=== PATIENT | male | born 1940 | race Caucasian/White ===

== ENCOUNTER → 2024-09-01 | Outpatient (BNVA) | payer MEDICARE, SELFPAY | END | disposition home or self-care (01) | PROVIDERS: PCP Family Medicine; Referring Provider Family Medicine; Visit Provider Urology | DX: N40.1 Benign prostatic hyperplasia with lower urinary tract symptoms (principal); N13.8 Other obstructive and reflux uropathy; N18.30 Chronic kidney disease, stage 3 unspecified | CPT/HCPCS: 99212; G0463 ==

== ENCOUNTER → 2024-11-07 | Outpatient (CLI) | payer MEDICARE, SELFPAY ==
[2024-11-07 13:44] LABS: Collection Type, Urine Clean Catch; Squamous Epithelial Cell,Urine 0 /hpf (0-5)
[2024-11-07 16:55] LABS: Bacteria,Urine 2+; Bilirubin,Urine Negative (Negative); Blood,Urine 1+ (Negative); Color,Urine Yellow (Lt Yel-Yel); Glucose, Urine Negative (Negative); Ketones,Urine Negative (Negative); Leukocyte Esterase,Urine Positive (Negative); Nitrite,Urine Negative (Negative); Protein,Urine 1+ (Neg - Trace); RBC,Urine 9 /hpf (0-3); Specific Gravity,Urine 1.009 (1.001-1.035); Urobilinogen,Urine Negative mg/dL (0.0-1.0); WBC,Urine 425 /hpf (0-5)
[2024-11-07 16:56] LABS: Clarity,Urine Turbid (Clear/Hazy); Culture Indicated,Urine Yes
== END | disposition home or self-care (01) ==
LOC: SLDO 13:35
PROVIDERS: Referring Provider Family Medicine; Visit Provider Family Medicine
DX: Z87.440 Personal history of urinary (tract) infections (principal); Z46.6 Encounter for fitting and adjustment of urinary device
CPT/HCPCS: 81001; 87086

== ENCOUNTER → 2024-11-27 | Outpatient (CLI) | payer MEDICARE, SELFPAY ==
[2024-11-27 14:27] LABS: Collection Type, Urine Clean Catch
[2024-11-27 15:54] LABS: Bilirubin,Urine Negative (Negative); Blood,Urine 2+ (Negative); Color,Urine Orange (Lt Yel-Yel); Culture Indicated,Urine Contaminated; Glucose, Urine Negative (Negative); Ketones,Urine Negative (Negative); Leukocyte Esterase,Urine Positive (Negative); Nitrite,Urine Negative (Negative); Protein,Urine 2+ (Neg - Trace); RBC,Urine 85 /hpf (0-3); Specific Gravity,Urine 1.016 (1.001-1.035); Squamous Epithelial Cell,Urine 20 /hpf (0-5); Urobilinogen,Urine Negative mg/dL (0.0-1.0); WBC,Urine 2469 /hpf (0-5)
[2024-11-27 15:55] LABS: Clarity,Urine Cloudy (Clear/Hazy)
== END | disposition home or self-care (01) ==
LOC: SLDO 14:17
PROVIDERS: PCP Family Medicine; Referring Provider Family Medicine; Visit Provider Family Medicine
DX: Z87.440 Personal history of urinary (tract) infections (principal)
CPT/HCPCS: 81001

== ENCOUNTER → 2024-11-29 | Outpatient (CLI) | payer MEDICARE, SELFPAY ==
[2024-11-29 16:17] LABS: Basophils # (Auto) 0.1 Thou/mm3 (0.0-0.2); Basophils % (Auto) 1 % (0-2.5); Eosinophils # (Auto) 0.7 Thou/mm3 (0.0-0.5); Eosinophils % (Auto) 7 % (0-10); Hematocrit 44.2 % (41.0-53.0); Hemoglobin 14.2 g/dL (13.5-16.0); Immature Granulocytes % (Auto) 1 % (0-0); Immature Granulocytes Auto 0.05 Thou/mm3 (0.00-0.00); Lymphocytes # (Auto) 2.8 Thou/mm3 (1.0-4.8); Lymphocytes % (Auto) 28 % (10-50); Mean Corpuscular HGB Conc 32.1 g/dl (31.0-37.0); Mean Corpuscular Hemoglobin 27.7 pg (25.0-35.0); Mean Corpuscular Volume 86 fL (80-100); Monocytes # (Auto) 0.5 Thou/mm3 (0.0-0.8); Monocytes % (Auto) 5 % (0-12); Neutrophils % (Auto) 59 % (37-80); Nucleated Red Blood Cell % 0 /100 WBC (0); Platelet Count 331 Thou/mm3 (140-440); RDW Standard Deviation 50.8 fL (35.1-43.9); Red Blood Count 5.13 Miln/mm3 (4.50-5.90); White Blood Count 10.1 Thou/mm3 (3.8-10.6)
[2024-11-29 16:22] LABS: Partial Thromboplastin Time 26.5 Seconds (22.0-36.0); Prothrombin Time 11.3 Seconds (9.0-12.2)
[2024-11-29 16:40] LABS: Anion Gap 15 (7-16); BUN/Creatinine Ratio 21 Ratio (12-20); Blood Urea Nitrogen 40 mg/dL (9-23); Calcium 9.5 mg/dL (8.3-10.6); Carbon Dioxide 20.1 mMol/L (20.0-31.0); Chloride 107 mMol/L (98-107); Creatinine (Component) 1.9 mg/dL (0.6-1.3); Glucose 161 mg/dL (74-106); Osmolality,Calculated 295 (275-295); Sodium 142 mMol/L (136-145); eGFR 34 See Note
== END | disposition home or self-care (01) ==
PROVIDERS: PCP Family Medicine; Referring Provider Internal Medicine; Visit Provider Internal Medicine
DX: I25.10 Atherosclerotic heart disease of native coronary artery without angina pectoris (principal); I48.91 Unspecified atrial fibrillation
CPT/HCPCS: 36415; 80048; 85025; 85610; 85730

== ENCOUNTER → 2024-12-25 | Outpatient (BNVA) | payer MEDICARE, SELFPAY | END | disposition home or self-care (01) | PROVIDERS: PCP Family Medicine; Referring Provider Family Medicine; Visit Provider Urology | DX: N40.1 Benign prostatic hyperplasia with lower urinary tract symptoms (principal); N13.8 Other obstructive and reflux uropathy; R33.8 Other retention of urine; N18.32 Chronic kidney disease, stage 3b; R97.20 Elevated prostate specific antigen [PSA]; Z99.3 Dependence on wheelchair | CPT/HCPCS: 99212; G0463 ==

== ENCOUNTER 2025-09-11 12:07 | Inpatient (IN) | payer MEDICARE, SELFPAY ==
[2025-09-11] VITALS (33 sets, daily range): BP systolic 95–130; BP diastolic 65–98; PULSE 106–140; RESP 0–31; TEMP 35.5–37.1; O2SAT 85–100; BMI 18.3
--- NOTE | 2025-09-11 12:11 | XR_ITS ---
Examination: CTA carotids with intravenous contrast CTA brain, head with intravenous contrast. 2-D sagittal, coronal reconstructions. 3-D reconstructions. Exam date and time: September 11, 2025, 1222 hours INDICATIONS: Stroke alert, onset left-sided body weakness altered mental status this morning CTDI: vol (mGy) 11.6 DLP: (mGycm) 490 Technique: Multiple CTA axial brain, head carotid images post intravenous contrast injection 60 cc, [id number]. 2-D sagittal, coronal reconstructions. 3-D reconstructions, 3-D post processing including vascular maximum intensity projection images. Low dose protocols were performed. One or more of the following dose reduction techniques were used; automated exposure control, adjustment of the mA and/or KV according to patient size, use of iterative reconstruction technique. Findings: No significant common carotid carotid bifurcation or internal carotid artery stenoses Dominant right vertebral artery in the neck with no critical stenoses Basilar artery posterior cerebral branches fill with no large vessel occlusions Moderate calcification juxtasellar portions internal carotid arteries No large vessel occlusions involving M1 segments middle cerebral arteries or middle cerebral artery trifurcation vessels, anterior cerebral arteries also fill with no large vessel occlusions IMPRESSION: No significant neck arterial stenoses No cerebral large vessel arterial occlusions or thrombus
--- NOTE | 2025-09-11 12:11 | EKG_ITS ---
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[employer]: : 1940 Requested By: Corona Gaviria Order Number: [id number] Reading MD: Corona Gaviria Measurements Intervals [place] Rate: 119 P: 32 CA: 157 QRS: -10 QRSD: 109 T: 95 QT: 348 QTc: 490 Interpretive Statements SINUS TACHYCARDIA WITH OCCASIONAL VENTRICULAR PREMATURE COMPLEXES WITH OCCASIONAL SUPRAVENTRICULAR PREMATURE COMPLEXES SEPTAL MYOCARDIAL INFARCTION , PROBABLY OLD [40+ ms Q WAVE IN V1/V2] Compared to ECG 05/19/2024 00:39:17 Ventricular premature complex(es) now present Myocardial infarct finding now present Sinus rhythm no longer present T-wave abnormality no longer present /store/S0/[id number].pdf
--- NOTE | 2025-09-11 12:11 | XR_ITS ---
Examination: CT brain head without contrast. 2-D sagittal coronal reconstructions Date and time of exam: September 11, 2025, 1217 hours INDICATIONS: Stroke alert, onset focal neurologic deficit CTDI: vol (mGy): 47.9 DLP: (mGycm): 985 Technique: Multiple CT axial sections of the brain have been obtained, 5 mm slice thickness. Contrast has not been administered. 2-D sagittal, coronal reconstructions have been obtained Low dose protocols were performed. One or more of the following dose reduction techniques were used; automated exposure control, adjustment of the mA and/or KV according to patient size, use of iterative reconstruction technique. Findings: No significant ventricular enlargement. Intra-axial or extra-axial hemorrhage density is not seen. No mass effect or midline shift Basal cisterns are not remarkable. Fourth ventricle is midline. Cranial vault intact. Impression: Negative for acute hemorrhage, mass effect or midline shift
--- NOTE | 2025-09-11 12:11 | XR_ITS ---
EXAMINATION: AP chest single view TECHNIQUE: AP portable semiupright chest single view Date and time: September 11, 2025, 1355 hours INDICATIONS: Stroke alert today, onset focal neurologic deficit. FINDINGS: Normal heart size No aspiration pneumonia Reduced inspiratory effort Prominent osteopenia IMPRESSION: No aspiration pneumonia
--- NOTE | 2025-09-11 12:11 | PC.NURSE ---
SEPSIS ALERT ACTIVATED
--- NOTE | 2025-09-11 12:12 | PC.NURSE ---
Addendum entered by Hannah Love CNA 09/11/25 12:17: STROKE ALERT WAS ACTIVATED @ 1154 Original Note: STROKE ALERT ACTIVATED TELE CART ACTIVATED CONF #[id number]
--- NOTE | 2025-09-11 12:13 | PD.EDADULT ---
ED General RME/HPI General Chief complaint: Altered Mental Status Stated complaint: STROKE Time Seen by Provider: 09/11/25 12:11 Arrival date/time: 09/11/25 12:07 CC: Altered mental status, left-sided weakness HPI patient presents to the ER via EMS from private home family members are poor historians patient has a Mayo catheter. Family ember state EMS that the patient gets like this , when he has a urine infection. The patient is no verbal response but is following very simple commands. Midline gaze pupils are dilated. Unable to move the left hand or left leg. EMS report tachycardia with a soft blood pressure unable to get oxygen saturations. Teleneuro at bedside. Related Data Home Medications ?Medication ?Instructions ?Recorded ?Confirmed midodrine 10 mg tablet 10 mg PO BID 12/25/24 12/25/24 Allergies Allergy/AdvReac Type Severity Reaction Status Date / Time No Known Allergies Allergy Verified 12/25/24 10:59 Review of Systems Review of Systems ROS Unobtainable: unobtainable due to mental status Past Medical History Past Medical History NEUROLOGIC: Negative Neurological Disorders, Cerebrovascular Accident, Transient Ischemic Attacks (TIA), Dementia, Alzheimer's Disease, Parkinson's Disease, Brain Tumor, Meningitis, Seizures, Epilepsy, Multiple Sclerosis, Cerebral Palsy, Amyotrophic Lateral Sclerosis (ALS/Jaida Gehrig's), Guillain-[place] Syndrome, Spina Bifida, Paralysis, Peripheral Neuropathy, Sutton's Palsy, Subdural Hematoma, Migraine, Head Trauma, Spinal Cord Injury or Traumatic Brain Injury CARDIAC: Negative Cardiac Disorders, Myocardial Infarction, Cardiac Arrhythmia, Atrial Fibrillation, Angina, Heart Murmur, Coronary Artery Disease, Atherosclerotic Heart Disease, Peripheral Vascular Disease, Hypercholesterolemia, Aneurysm, Congestive Heart Failure, Congenital Heart Disease, Valvular Heart Disease, Rheumatic Fever, Cardiomyopathy, Edema, Pericarditis, Cellulitis, Deep Vein Thrombosis, Hypertension, Hypotension or Varicose Veins RESPIRATORY: Negative Chronic Obstructive Pulmonary Disease (COPD), Asthma, Bronchitis, Emphysema, Pneumonia, Pulmonary Fibrosis, Cystic Fibrosis, Tuberculosis, Pulmonary Embolism, Pulmonary Edema or Sleep Apnea GASTROINTESTINAL: Negative Gastrointestinal Disorders, Hepatitis, Cirrhosis, Pancreatitis, Celiac Disease, Gall Bladder Disease, Gastrointestinal Bleed, Esophageal Varices, Plaza's Esophagus, Colitis, Ulcerative Colitis, Diverticulitis, Diverticulosis, Ulcer, Colorectal Cancer, Irritable Bowel, Crohn's Disease, Obstructive Bowel, Hiatal Hernia, Hemorrhoids, Gastroesophageal Reflux Disease or Obesity GENITOURINARY: Negative Genitourinary Disorders, Renal Disease, Kidney Stones, Polycystic Kidney Disease, Neurogenic Bladder, Inguinal Hernia, Dialysis, Prostate Cancer or Benign Prostatic Hyperplasia REPRODUCTIVE: Negative Breast Cancer, Fibroids, Genital Herpes, Gonorrhea, Syphilis or Testicular Cancer MUSCULOSKELETAL: Negative Musculoskeletal Disorders, Muscular Dystrophy, Myasthenia Gravis, Marfan's Syndrome, Bone Cancer, Arthritis, Rheumatoid Arthritis, Osteoporosis, Degenerative Disk Disease, Gout, Scoliosis, Carpal Tunnel Syndrome, Fibromyalgia, Fractures, Degenerative Joint Disease, Osteomyelitis or Poliovirus ENT: Negative Cataracts, Glaucoma, Blind, Retinal Detachment, Macular Degeneration, Ear Infection, Deafness, Head Trauma or Eye Prosthesis ENDOCRINE: Negative Endocrine Disorders, Diabetes Mellitus Type 1, Diabetes Mellitus Type 2, Hypoglycemia, Erie's Syndrome, [place]'s Disease, Hyperthyroidism, Hypothyroidism, Parathyroid Disease, Pituitary Disease, Systemic Lupus Erythematosus, Syndrome of Inappropriate Antidiuretic Hormone (SIADH), Adrenal Disease or Graves' Disease HEMATOLOGIC: Negative Blood Disorders, Anemia, Leukemia, Hemophilia, Thalassemia, Sickle Cell Disease or Clotting Problems PSYCHO/SOCIAL: Negative Psychiatric Problems, Schizophrenia, Recreational Drug Use, Bipolar Disorder, Depression, Anxiety, Behavior Problems, Self-Mutilation, Attention Deficit Disorder, Attention Deficit Hyperactivity Disorder, Depression, Post Traumatic Stress Disorder or Eating Disorder OTHER HISTORY: Negative Hospitalization, Autoimmune Disease, Down Syndrome, Autism, Developmental Delay, Shingles, Falls, Blood Transfusions, Blood Transfusion Reaction, Anesthesia Reactions, Organ Transplant, Chemotherapy, Radiation Therapy, Hyperbaric Therapy, MRSA, VRSA, Vancomycin-Resistant Enterococci, Human Immunodeficiency Virus (HIV), Chicken Pox, Measles, Mumps, Rubella ([place]an Measles), Pertussis, Clostridium Difficile, Cancer, Breast Cancer, Cervical Cancer, Colorectal Cancer, Lung Cancer, Ovarian Cancer, Prostate Cancer or Testicular Cancer Family History FAMILY HISTORY: Negative Family Respiratory Disorders or Family Cardiac Disorders Surgical History SURGICAL: Negative Cardiac Surgery, Open Heart Surgery, Coronary Artery Bypass Graft, Valve Replacement, Vascular Surgery, Coronary Stent, Cardiac Catheterization, Pacemaker, Angiogram, Auto Implanted Cardiovert Defib, Carotid Endarterectomy, Endocrine Surgery, Thyroidectomy, Ear Surgery, Tympanostomy Tube, Eye Surgery, Nose Surgery, Oral Surgery, Tonsillectomy, Adenoidectomy, Cochlear Implant, Corneal Transplant, Throat Surgery, Abdominal Surgery, Tracheostomy, Gastric Bypass Surgery, Gastrostomy, Bowel Surgery, Nephrectomy, Transurethral Resection, Joint Replacement, Amputation, Open Reduction Internal Fixation, Arthroscopy, Neurologic Surgery, Brain Shunt, Mastectomy, Lumpectomy, Hysterectomy, Tubal Ligation, Section, Vasectomy or Organ Transplant Social History SMOKING STATUS: Never smoker SECOND HAND EXPOSURE: No ED Exam Narrative Physical exam: [General: Thin, emaciated, somewhat disheveled. Head normocephalic HEENT: Eyes pupils at 4 mm minimally reactive midline. Mouth very dry mouthing words with no phonation. Tongue is pink. Neck, no JVD no edema Chest equal chest rise nontender to palpation Respiratory: Clear to auscultation no wheezes crackles or rubs CV: Rate rhythm is regular no murmurs rubs or clicks Abdomen is flat, soft nontender no masses positive bowel sounds all 4 quadrants Back: No CVA tenderness no spinous process tenderness from cervical spine thoracic and lumbar spine Skin: Intact no petechiae rash induration ulceration or crepitus Extremities: Left lower foot is mottled and hurst. Right foot is pale. Minimal movement of right upper extremity no movement of left upper extremity. Left lower extremity is flaccid. Neuro: Awake Glascow coma 14 no focal deficits] Course Course Course Narrative: Patient still continues to have altered mental status. CT head and CTA is negative, patient is indicate renal failure, septic, within high procalcitonin and elevated troponin higher than it normally is. EKG does not show any significant finding BUN is 68 creatinine 5.7 the need to admit this patient for LIBRADO altered mental status CVA elevated troponin sepsis UTI Patient's clinical condition laboratory results and imaging discussed with resident for Dr. Aceves who agrees to accept the patient for admission. Patient's clinical presentation gastric content findings discussed with Dr. Blanton who agrees to consult on this patient Quality Measures none Orders Category Date Time Status Bedside Blood Glucose NOW Care 09/11/25 12:11 Active Bedside COVID-19 Antigen Test NOW Care 09/11/25 14:30 Active Cancer Registry Coordinator NOW Care 09/11/25 12:11 Active Continuous Pulse Oximetry NOW Care 09/11/25 12:11 Completed EKG (ED ONLY) *Do not use* NOW Care 09/11/25 12:11 Completed In and Out Catheter NEEDED Care 09/11/25 12:11 Active Insert IV NOW Care 09/11/25 12:11 Active NIH Stroke Scale now Care 09/11/25 12:11 Active NPO NOW Care 09/11/25 12:11 Active Nurse Swallow Screen x1 Care 09/11/25 12:11 Active Swallow Evaluation NEEDED Care 09/11/25 13:48 Active Urinary Catheter QS Care 09/11/25 12:52 Active Consult to Gastroenterology Stat Cons 09/11/25 14:39 Ordered Consult to Neurology / Tele-Neurology Routine Cons 09/11/25 12:[address] angio stroke protocol Stat Exams 09/11/25 12:[address] stroke protocol Stat Exams 09/11/25 12:11 Completed EKG (ED Only) Stat Exams 09/11/25 12:11 Draft XR chest 1V portable Stat Exams 09/11/25 12:11 Completed CBC Stat Lab 09/11/25 12:10 Completed Comprehensive Metabolic Panel Stat Lab 09/11/25 13:16 Completed Drug Screen,Urine Stat Lab 09/11/25 13:10 Completed HCG Titer if Positive Stat Lab 09/11/25 13:16 Completed Lactic Acid [Lactate (Lactic Acid)] Stat Lab 09/11/25 12:10 Results Magnesium Stat Lab 09/11/25 13:16 Completed Partial Thromboplastin Time Stat Lab 09/11/25 12:10 Completed Procalcitonin Stat Lab 09/11/25 13:16 Completed Prothrombin Time with INR Stat Lab 09/11/25 12:10 Completed Troponin I Stat Lab 09/11/25 13:16 Completed Urinalysis, C/S if Indicated Stat Lab 09/11/25 13:10 Completed Urine Culture Stat Lab 09/11/25 13:10 Received Aspirin [Ecotrin] Med 09/11/25 13:49 Discontinued 81 mg PO X1 ONE Clopidogrel [Plavix] Med 09/11/25 13:48 Discontinued 300 mg PO X1 ONE Ondansetron Inj [Zofran Inj] Med 09/11/25 12:11 Active 4 mg IVP Q4HR PRN Ondansetron Inj [Zofran Inj] Med 09/11/25 13:55 Discontinued 4 mg IVP X1 ONE Pantoprazole Inj [Protonix Inj] Med 09/11/25 13:55 Discontinued 40 mg IVP X1 ONE Pantoprazole/Ns 80Mg IV Premix [Protonix/NS 80mg IV Med 09/11/25 13:55 Active Premix] 80 mg in 100 ml IV Q10H Piper/Tazo 3.375 gm Premix [Zosyn] Med 09/11/25 12:34 Discontinued 3.375 gm in 50 ml IV X1 Ringers Lactated 1000 ml [Lactated Ringers] 1,000 ml Med 09/11/25 12:12 Discontinued IV 999 mls/hr Ringers Lactated 1000 ml [Lactated Ringers] 1,000 ml Med 09/11/25 12:12 Discontinued IV 999 mls/hr Oxygen Delivery NOW RT 09/11/25 12:11 Active Vital Signs Vital signs: Vital Signs Pulse Rate 130 H 09/11/25 12:32 Discharge Plan Plan Patient Disposition: Other Care w/in Hosp (SDC/SERGIO) Prescriptions/Referrals Prescriptions/Med Rec: No Action midodrine 10 mg tablet 10 mg PO BID Rx Instructions: do not give last dose of day after 6PM or within 4 hrs of bedtime Referrals: No Primary/Family,Physician [Primary Care Provider] - In 1 week Problem List Clinical Impression: Acute renal failure (ARF), Urinary tract infection, GI bleed, Sepsis, CVA (cerebral vascular accident), Altered mental status Patient/Caregiver Discharge Instructions Print Language: French Stand Alone Forms: [employer] Award Info., Patient Portal Info Letter PA/CONSTRUCTION TECHNICIAN Supervising Physician PA/CONSTRUCTION TECHNICIAN Supervising Physician: Corona Antunez ENP [facility] Clinical Information Provided by: patient and EMS [facility] Meds/Rx considered, not ordered None Labs/Rad/Tests considered, not ordered None Chronic Illness/Social Conditions Explain: Postobstructive LIBRADO prostate cancer symptomatic hypotension Review of the medical records her last admission was in June 2024 EKG Interpretation EKG #1: EKG Interpretation: EKG performed at 1305 shows a ventricular rate of 119 DC interval 157 QRS of 109 QTc 418 this is sinus tachycardia. Occasional PVC. Labs Labs: interpreted by oh Lab(s) Interpretation(s): CBC shows no acute leukocytosis H&H of 13.0 and 37.6. Platelet count is normal. CMP shows a CO2 of 15.6 a gap at 19 BUN of 68 creatinine 5.7 glucose of 116 no transaminitis or T. bili elevation Troponin at 0.972. Note: Patient has had elevated troponins in the past but not as high as this. Coag show PT of 13.5 INR 1.3 PTT of 35.0. Lactic of 2.9. Urine is cloudy 3+ protein 3+ blood RBCs at 357 WBCs at 270 leukocyte esterase positive nitrite -1+ bacteria UDS is negative Lactic acid at 57.5 to Imaging Imaging interpretation: interpreted by me Imaging Interpretation(s): CTA of the head is negative for LVO, CT of the head is negative for hemorrhagic stroke. Medication Administration(s) Medication Administration History Pantoprazole Sodium (Protonix/Ns 80mg Iv Premix) 80 mg in 100 mls @ 10 mls/hr IV Q10H SYBIL Stop: 09/14/25 11:54 Last Admin: 09/11/25 14:08 Dose: 10 mls/hr Documented By: MARCELO Ondansetron HCl (Ondansetron Inj 2 Mg/Ml Inj 2 Ml) 4 mg IVP Q4HR PRN PRN Reason: NAUSEA OR VOMITING Stop: 10/11/25 12:10 Discontinued Medications Aspirin (Aspirin Ec 81 Mg Tabec) 81 mg PO X1 ONE Stop: 09/11/25 13:50 Last Admin: 09/11/25 13:56 Dose: Not Given Documented By: MARCELO Non-Admin Reason: Cancelled by Provider Clopidogrel Bisulfate (Clopidogrel Bisulfate 75 Mg Tablet) 300 mg PO X1 ONE Stop: 09/11/25 13:49 Last Admin: 09/11/25 13:56 Dose: Not Given Documented By: MARCELO Non-Admin Reason: Cancelled by Provider Lactated Ringer's (Lactated Ringers) 1,000 mls @ 999 mls/hr IV .Q1H1M ONE Stop: 09/11/25 13:12 Last Admin: 09/11/25 12:36 Dose: Not Given Documented By: Non-Admin Reason: Cancelled by Provider Lactated Ringer's (Lactated Ringers) 1,000 mls @ 999 mls/hr IV .Q1H1M ONE Stop: 09/11/25 13:12 Last Admin: 09/11/25 12:33 Dose: 999 mls/hr Documented By: Piperacillin/Tazobactam/Dextrose (Zosyn) 3.375 gm in 50 mls @ 100 mls/hr IV X1 ONE; Protocol Stop: 09/11/25 13:03 Last Admin: 09/11/25 12:49 Dose: 100 mls/hr Documented By: MARCELO Ondansetron HCl (Ondansetron Inj 2 Mg/Ml Inj 2 Ml) 4 mg IVP X1 ONE; Protocol Stop: 09/11/25 13:56 Last Admin: 09/11/25 14:07 Dose: 4 mg Documented By: MARCELO Pantoprazole Sodium (Pantoprazole Inj 40 Mg Vial) 40 mg IVP X1 ONE Stop: 09/11/25 13:56 Last Admin: 09/11/25 14:08 Dose: 40 mg Documented By: MARCELO
[2025-09-11 12:18] LABS: Lactate (Lactic Acid) 2.9 mMol/L (0.4-2.0)
[2025-09-11 12:20] LABS: Basophils # (Auto) 0.0 Thou/mm3 (0.0-0.2); Basophils % (Auto) 1 % (0-2.5); Eosinophils # (Auto) 0.0 Thou/mm3 (0.0-0.5); Eosinophils % (Auto) 0 % (0-10); Hematocrit 37.6 % (41.0-53.0); Hemoglobin 13.0 g/dL (13.5-16.0); Immature Granulocytes Auto 0.03 Thou/mm3 (0.00-0.00); Lymphocytes # (Auto) 0.8 Thou/mm3 (1.0-4.8); Lymphocytes % (Auto) 9 % (10-50); Mean Corpuscular HGB Conc 34.6 g/dl (31.0-37.0); Mean Corpuscular Hemoglobin 28.4 pg (25.0-35.0); Mean Corpuscular Volume 82 fL (80-100); Monocytes # (Auto) 0.2 Thou/mm3 (0.0-0.8); Monocytes % (Auto) 2 % (0-12); Neutrophils # (Auto) 7.6 Thou/mm3 (1.8-7.7); Neutrophils % (Auto) 88 % (37-80); Nucleated Red Blood Cell # 0.00 Thou/mm3 (0.00-0.00); Nucleated Red Blood Cell % 0 /100 WBC (0); Platelet Count 279 Thou/mm3 (140-440); RDW Standard Deviation 47.9 fL (35.1-43.9); Red Blood Count 4.58 Miln/mm3 (4.50-5.90); White Blood Count 8.6 Thou/mm3 (3.8-10.6)
[2025-09-11 12:31] LABS: INR 1.3 (0.9-1.3); Partial Thromboplastin Time 35.0 Seconds (22.0-36.0); Prothrombin Time 13.5 Seconds (9.0-12.2)
--- NOTE | 2025-09-11 12:32 | PC.NURSE ---
Patient to er via ems from home with co left sided weakness, gcs 14, LKW 12am. Patient taken to CT shortly after arrival to ER, Dr. Morgan, teleneurologist on video to assess patient along with Tulio CLAY PUDDLER, Stroke alert called en route and sepsis alert called upon arrival, patient moving all ext., garbled speech, left hand oxyacetylene burner weaker on the right, skin is warm dry and slightly pale. Per Dr. Morgan not a candidate for TNKASE, he will call provider with reccomendation,
[2025-09-11] MEDS: RINGERS LACTATED 1000 ML 1,000 ML 999 ML IV ×2 (12:33→15:05)
--- NOTE | 2025-09-11 12:45 | ESCONSULT_ITS ---
Tele Neuro Consultation Consultation Date 09/11/25 Most Recent Vital Signs Last Vital Signs Pulse 124 H 09/11/25 12:40 Resp 31 H 09/11/25 12:40 BP 128/75 09/11/25 12:40 Pulse Ox 100 09/11/25 12:40 O2 Del Method Room Air 09/11/25 12:40 Laboratory-Coagulation Panel PT 13.5 Seconds (9.0-12.2) H 09/11/25 12:10 INR 1.3 (0.9-1.3) 09/11/25 12:10 APTT 35.0 Seconds (22.0-36.0) 09/11/25 12:10 Consultation Narrative [facility] Tele[facility]rology Consult [facility] Patient Name:???Arsen Alcantar Date of :???1940 Identification Number:??? Date of Service:???09/11/2025 11:54:58 Diagnosis:?I63.411 - Cerebrovascular accident (CVA) due to embolism of right middle cerebral artery (HCCC) Impression: ?Mr. Alcantar is an 85 year old man with a history of urosepsis who presents with signs and symptoms of right MCA ischemic stroke causing left hemiparesis neglect and right gaze deviation. ? ?He is outside the TNK time window. I recommend aspirin 81mg daily and plavix 300mg once then 75mg daily for 21 days. Also he should have MRI brain, probation officer for AF evaluation, LDL goal <70 with statin therapy TSH, B12, thiamine, folate, sepsis evaluation is ongoing. Our recommendations are outlined below. Recommendations: ? Stroke/Telemetry Floor ? Neuro Checks (Q4) ? Bedside Swallow Eval ? DVT Prophylaxis ? IV Fluids, Normal Saline ? Head of Bed 30 Degrees ? Euglycemia and Avoid Hyperthermia (PRN Acetaminophen) ? Bolus with Clopidogrel 300 mg bolus x1 and initiate dual antiplatelet therapy with Aspirin 81 mg daily and Clopidogrel 75 mg daily ? Antihypertensives PRN if Blood pressure is greater than 220/120 or there is a concern for End organ damage/contraindications for permissive HTN. If blood pressure is greater than 220/120 give labetalol PO or IV or Vasotec IV with a goal of 15% reduction in BP during the first 24 hours. Sign Out: ? Discussed with Emergency Department Provider Advanced Imaging: Advanced imaging has been ordered. Results pending. Metrics: Last Known Well: 09/11/2025 00:00:00 Arrival Time: 09/11/2025 12:07:00 Activation Time: 09/11/2025 12:00:42 Initial Response Time: 09/11/2025 12:03:26 ETA Time reported by hospital: 12 Minutes.Symptoms: altered mental status and left sided weakness. Initial patient interaction: 09/11/2025 12:14:00 NIHSS Assessment Completed: 09/11/2025 12:19:43Patient is not a candidate for Thrombolytic. Thrombolytic Medical Decision: 09/11/2025 12:19:44Patient was not deemed candidate for Thrombolytic because of following reasons: LKW outside 4.[address] Head: I personally reviewed all the CT images that were available to me and it showed: no hemorrhage, global atrophy severe Primary Provider Notified of Diagnostic Impression and Management Plan on: 09/11/2025 12:33:27 History of Present Illness:Patient is a 85 year old Male. Patient was brought by EMS for symptoms of altered mental status and left sided weakness. 85 year old man with acute change in mental status found today by his family. Family found that his louise bag had pyuria and similar to prior hospitalization. The patient is not verbal and EMS found him hypotensive. There were no seizures but had left hemiparesis with EMS. No stroke history noted on my chart review Past Medical History: ?There is no history of Stroke Other PMH:? sepsis/UTI ?obstructive hydronephrosis with chronic louise ?prostate enlargement Medications: Anticoagulant use:??Unknown Antiplatelet use:?Unknown Reviewed EMR for current medications Other Medications Pertinent To Assessment Include: no antithrombic medications in his chart Allergies:? Reviewed Social History: Unable To Obtain Due To Patient Status :?Patient Cannot Speak Family History: Family History Cannot Be Obtained Because:Patient Cannot Speak ROS :?ROS Cannot Be Obtained Because:? Patient Cannot Speak Past Surgical History: Past Surgical History Cannot Be Obtained Because: Patient Cannot Speak There Is No Surgical History Contributory To Today?s Visit Examination: BP(128//75),?Pulse(124),?Blood Glucose(123) 1A: Level of Consciousness - Alert; keenly responsive?+ 0 1B: Ask Month and Age - Aphasic?+ 2 1C: Blink Eyes & Squeeze Hands - Performs Both Tasks?+ 0 2: Test Horizontal Extraocular Movements - Partial Gaze Palsy: Can Be Overcome?+ 1 3: Test Visual Kelly - No Visual Loss?+ 0 4: Test Facial Palsy (Use Grimace if Obtunded) - Minor paralysis (flat nasolabial fold, smile asymmetry)?+ 1 5A: Test Left Arm Motor Drift - No Movement?+ 4 5B: Test Right Arm Motor Drift - No Drift for 10 Seconds?+ 0 6A: Test Left Leg Motor Drift - No Movement?+ 4 6B: Test Right Leg Motor Drift - No Drift for 5 Seconds?+ 0 7: Test Limb Ataxia (FNF/Heel-Ma) - No Ataxia?+ 0 8: Test Sensation - No Response and Quadriplegic?+ 2 9: Test Language/Aphasia - Mute/Global Aphasia: No Usable Speech/Auditory Comprehension?+ 3 10: Test Dysarthria - Mute/Anarthric?+ 2 11: Test Extinction/Inattention - Visual/tactile/auditory/spatial/personal inattention?+ 1 NIHSS Score:?20 NIHSS Free Text :?right gaze and left hemiparesis unable to speak but followed some commands. He appears malnourished and left foot is cyanotic. Pre-Morbid Modified Whipple Scale: Unable to assess Spoke with :?Dr Antunez This consult was conducted in real time using interactive audio and video technology. Patient was informed of the technology being used for this visit and agreed to proceed. Patient located in hospital and provider located at home/office setting. Patient is being evaluated for possible acute neurologic impairment and high probability of imminent or life-threatening deterioration. I spent total of 35 minutes providing care to this patient, including time for face to face visit via telemedicine, review of medical records, imaging studies and discussion of findings with providers, the patient and/or family. Dr Fermín Morgan [facility] For Inpatient follow-up with [facility] physician please call [facility] at . As we are not an outpatient service for any post hospital discharge needs please contact the hospital for assistance. If you have any questions for the [facility] physicians or need to reconsult for clinical or diagnostic changes please contact us via [facility] at . Non-radiologist review of imaging performed to assist with emergent clinical decision-making. Remote physician workstations do not possess the same resolution, calibration, or diagnostic capabilities as hospital-based radiology reading stations, and formal radiologist read is necessary. Signature :?Fermín Morgan
[2025-09-11] MEDS: PIPER/TAZO 3.375 GM PREMIX 3.375 GM/50 ML BAG IV (12:49)
[2025-09-11 13:17] LABS: Collection Type, Urine Catheter; Squamous Epithelial Cell,Urine 0 /hpf (0-5)
[2025-09-11 13:31] LABS: Amorphous Crystals,Urine Present (Absent); Bacteria,Urine 1+; Bilirubin,Urine Negative (Negative); Blood,Urine 3+ (Negative); Color,Urine Orange (Lt Yel-Yel); Glucose, Urine Negative (Negative); Ketones,Urine Negative (Negative); Leukocyte Esterase,Urine Positive (Negative); Nitrite,Urine Negative (Negative); PH,Urine 7.0 (5.0-7.0); Protein,Urine 3+ (Neg - Trace); RBC,Urine 357 /hpf (0-3); Specific Gravity,Urine 1.026 (1.001-1.035); Urobilinogen,Urine Negative mg/dL (0.0-1.0); WBC,Urine 270 /hpf (0-5)
[2025-09-11 13:33] LABS: Clarity,Urine Cloudy (Clear/Hazy); Culture Indicated,Urine Yes
[2025-09-11 13:34] LABS: Amphetamine/Methamp Scrn,U Negative (Negative); Barbiturate Screen,Urine Negative (Negative); Benzodiazepines Screen,Urine Negative (Negative); Benzoylecgonine Screen, Ur Negative (Negative); Fentanyl Screen,Urine Negative (Negative); Opiate Screen,Urine Negative (Negative); THC Screen,Urine Negative (Negative)
[2025-09-11 13:47] LABS: HCG Titer if Positive Negative
--- NOTE | 2025-09-11 13:59 | PC.NURSE ---
gastric occult positive, performed by [employer] ANALYST
[2025-09-11 14:00] LABS: Alanine Aminotransferase < 7 U/L (10-49); Albumin, Serum 3.3 gm/dL (3.4-4.8); Albumin/Globulin Ratio 1.3 (1.2-2.2); Alkaline Phosphatase 72 U/L (46-116); Anion Gap 19 (7-16); Aspartate Amino Transferase 24 U/L (0-34); BUN/Creatinine Ratio 12 Ratio (12-20); Bilirubin,Total 0.5 mg/dL (0.3-1.2); Blood Urea Nitrogen 68 mg/dL (9-23); Calcium 8.4 mg/dL (8.3-10.6); Calcium (Corrected) 9.0 mg/dL (8.5-10.1); Carbon Dioxide 15.6 mMol/L (20.0-31.0); Chloride 104 mMol/L (98-107); Creatinine (Component) 5.7 mg/dL (0.6-1.3); Estimated Creatinine Clearance 8.1 mL/min (>60); Globulin 2.6 gm/dL (2.3-3.5); Glucose 116 mg/dL (74-106); Magnesium 1.7 mg/dL (1.6-2.6); Osmolality,Calculated 298 (275-295); Potassium 3.4 mMol/L (3.4-5.1); Sodium 139 mMol/L (136-145); Total Protein 5.9 gm/dL (5.7-8.2); eGFR 9 See Note
[2025-09-11 14:03] LABS: Troponin I 0.972 ng/mL (0.0-0.045)
[2025-09-11] MEDS: ONDANSETRON INJ 2 MG/ML INJ 2 ML 4 MG IVP (14:07)
[2025-09-11 14:08] LABS: Procalcitonin 57.52 ng/ml (0.0-0.49)
[2025-09-11] MEDS: PANTOPRAZOLE/NS 80MG IV PREMIX 80 MG/100 ML BAG 10 MG IV (14:08)
[2025-09-11 15:14] LABS: Reflex Lactate? Y
--- NOTE | 2025-09-11 15:15 | ESCONSULT_ITS ---
HPI Data of Consult Consult date: 09/11/25 Primary Care Provider: Physician No Primary/Family Consult Narrative Reason for consult: Brownish-red emesis History of present illness: Patient is a 85-year-old male wheelchair-bound with past medical significant for BPH who presented to the ED on09/11/2025 with chief complaint of altered mental status. The patient was transported via EMS following an episode of left-sided weakness. Upon arrival to the ED GCS score was 14 with last known well at midnight. Due to patient's altered mentation, no reliable history could be obtained directly from the patient. Most information was obtained from chart review. According to the ED provider, family members have also been unable to provide a clear history. During evaluation, no family members are present at the bedside. The patient is currently noncommunicative but is able to follow simple commands, such as opening his eyes, mouth and raising his arms or legs. The patient was noted to have a brownish-reddish emesis raising concern for possible GI bleeding. Gastric occult test positive.. Unfortunately, a detailed medication history could not be obtained due to patient noncommunicative state, motivation regarding NSAID use, antibiotic or any previous colonoscopy is available at this time.On exam, the patient is tachycardic, tachypneic, and appears severely dehydrated. He is also noted to be septic. Lab Results: * Acute infection likely indicated by elevated procalcitonin (57.52) * Signs of metabolic acidosis with an elevated anion gap * Acute kidney injury * Elevated troponin levels * Hemoglobin: 13.0, Hematocrit: 37.6, PT: 13.5 ED COMMERCIAL ARTIST LETTERING consulted gastroenterology for hematemesis evaluation and management. Surgical History: Unable to obtain Social History: Per chart review no history of smoking, alcohol use, recreational drug use cc:: cc: Exam Vital Signs Temp Pulse Resp BP Pulse Ox O2 Del Method 98.8 F 124 H 31 H 128/75 100 Room Air 09/11/25 12:40 09/11/25 12:40 09/11/25 12:40 09/11/25 12:40 09/11/25 12:40 09/11/25 12:40 Narrative Exam General: tachycardic, tachypneic, and appears severely dehydrated,noted to be septic.disheveled,lethargic, follows simple command but aphasic Skin: Warm, dry, intact. No rash or ecchymoses. Head: Normocephalic, atraumatic. Eye: Normal conjunctiva, PERRL. Throat: Oral mucosa dry. obvious lesions in oropharynx. Cardiovascular: Tachycardic, no murmur, +S1/S2. Respiratory: Lungs are clear to auscultation, respirations unlabored, no crackles, no wheezing. Gastrointestinal: Soft, mildly tender, non-distended. No guarding or rebound tenderness. Extremities: No edema, no cyanosis, no clubbing. Neuro: Alert and oriented x0. left-sided hemiparesis. Psychiatric: Cooperative, appropriate affect Results Labs 09/11/25 12:10 09/11/25 13:16 Labs: Short CBC 09/11/25 Range/Units 12:10 WBC 8.6 (3.8-10.6) Thou/mm3 Hgb 13.0 L (13.5-16.0) g/dL Hct 37.6 L (41.0-53.0) % Plt Count 279 (140-440) Thou/mm3 BMP 09/11/25 13:16 Sodium 139 Potassium 3.4 Chloride 104 Carbon Dioxide 15.6 L BUN 68 H Creatinine 5.7 H* Glucose 116 H Calcium 8.4 Cardiac Enzymes 09/11/25 Range/Units 13:16 Troponin I 0.972 H* (0.0-0.045) ng/mL Liver Function 09/11/25 Range/Units 13:16 Total Bilirubin 0.5 (0.3-1.2) mg/dL AST 24 (0-34) U/L ALT < 7 L (10-49) U/L Alkaline Phosphatase 72 (46-116) U/L Albumin 3.3 L (3.4-4.8) gm/dL Urine 09/11/25 Range/Units 13:10 Urine Color [place] A (Lt Yel-Yel) Urine Clarity Cloudy A (Clear/Hazy) Urine pH 7.0 (5.0-7.0) Ur Specific [place] 1.026 (1.001-1.035) Urine Protein 3+ A (Neg - Trace) Urine Glucose (UA) Negative (Negative) Quality Measures Quality Measures none Advance care planning discussed with:: other Medications Home Medications and Allergies Home Medications ?Medication ?Instructions ?Recorded ?Confirmed ?Type midodrine 10 mg tablet 10 mg PO BID 12/25/24 History Allergies Allergy/AdvReac Type Severity Reaction Status Date / Time No Known Allergies Allergy Verified 12/25/24 10:59 Visit Medications Pantoprazole Sodium (Protonix/Ns 80mg Iv Premix) 80 mg in 100 mls @ 10 mls/hr IV Q10H SYBIL Stop: 09/14/25 11:54 Last Admin: 09/11/25 14:08 Dose: 10 mls/hr Ondansetron HCl (Ondansetron Inj 2 Mg/Ml Inj 2 Ml) 4 mg IVP Q4HR PRN PRN Reason: NAUSEA OR VOMITING Stop: 10/11/25 12:10 Thiamine HCl (Thiamine Inj 100 Mg/Ml Vial 2 Ml) 100 mg IVP X1 ONE Stop: 09/11/25 15:14 Discontinued Medications Aspirin (Aspirin Ec 81 Mg Tabec) 81 mg PO X1 ONE Stop: 09/11/25 13:50 Last Admin: 09/11/25 13:56 Dose: Not Given Clopidogrel Bisulfate (Clopidogrel Bisulfate 75 Mg Tablet) 300 mg PO X1 ONE Stop: 09/11/25 13:49 Last Admin: 09/11/25 13:56 Dose: Not Given Lactated Ringer's (Lactated Ringers) 1,000 mls @ 999 mls/hr IV .Q1H1M ONE Stop: 09/11/25 13:12 Last Admin: 09/11/25 12:36 Dose: Not Given Lactated Ringer's (Lactated Ringers) 1,000 mls @ 999 mls/hr IV .Q1H1M ONE Stop: 09/11/25 13:12 Last Infusion: 09/11/25 14:48 Dose: Infused Piperacillin/Tazobactam/Dextrose (Zosyn) 3.375 gm in 50 mls @ 100 mls/hr IV X1 ONE; Protocol Stop: 09/11/25 13:03 Last Infusion: 09/11/25 13:20 Dose: Infused Ondansetron HCl (Ondansetron Inj 2 Mg/Ml Inj 2 Ml) 4 mg IVP X1 ONE; Protocol Stop: 09/11/25 13:56 Last Admin: 09/11/25 14:07 Dose: 4 mg Pantoprazole Sodium (Pantoprazole Inj 40 Mg Vial) 40 mg IVP X1 ONE Stop: 09/11/25 13:56 Last Admin: 09/11/25 14:08 Dose: 40 mg Assessment & Plan Plan Patient is a 85-year-old male wheelchair-bound with past medical significant for BPH who presented to the ED on09/11/2025 with chief complaint of altered mental status. The patient was transported via EMS following an episode of left-sided weakness. Upon admission found to be severely septic, encephalopathic, dehydrated with episode of hematemesis. Patient is being admitted for CVA workup and encephalopathy evaluation and management. GI consulted for GI bleed evaluation and management. #GI bleed upper vs lower in setting of #Hematemesis #Severe Dehydration #Sepsis DDx: Gastritis vs esophagitis vs varices - The patient is an 85-year-old male presenting with altered mental status, severe dehydration, and significant symptoms of sepsis. He is also showing signs of acute encephalopathy, likely secondary to metabolic or infectious causes, making it difficult to obtain a reliable history from the patient. -Notably, hematemesis (vomiting of blood) was observed in the ED, raising concern for an upper gastrointestinal bleed. Additionally, the patient has a relatively normal hemoglobin (13.0) and hematocrit (37.6), with a MCV of 82, which suggests no current active GI bleed or significant blood loss at this time. However, hematemesis remains a concern due to the patient's clinical presentation. Given the suspicion of a possible upper GI bleed, further workup is required, including EGD to assess for varices, ulcers, or other sources of bleeding. - Serial CBC - Type and screen, transfuse hemoglobin less than 7 - EGD planned for tomorrow - Keep NPO - Continue IV Protonix 40 mg twice daily - Continue IV hydration per sepsis protocol - Given the concern for a possible GI bleed in the setting of hematemesis and the patient's altered mental status, hold Plavix temporarily but can continue with Aspirin Patient seen and assessed under supervision of attending physician Dr.Kumar Sharifa Perales MD PGY-1, Internal Medicine Please note: this document was transcribed using voice recognition technology; minor inaccuracies may be present. Attending Provider Attestation/Addendum Patient evaluated Laboratory data reviewed Imaging studies reviewed Went over the notes of the internal medicine team Patient presenting to the ER with coffee-ground hematemesis Consent obtained for fiberoptic esophagogastroduodenoscopy with possible biopsy possible therapeutic intervention under intravenous moderate sedation N.p.o. midnight tonight IV Protonix Serial CBC Thank you very much for the opportunity to participate in the care of this patient
[2025-09-11] MEDS: THIAMINE INJ 100 MG/ML VIAL 2 ML IVP (15:28)
[2025-09-11 15:38] LABS: Lactic Acid, 3 HR 3.1 mMol/L (0.4-2.0)
--- NOTE | 2025-09-11 15:53 | ESHP_ITS ---
<Statement entered by Melissa Baker MD - 09/11/25 18:11> Patient was seen and examined by me personally. I have directly supervised and reviewed documentation by the team resident and agree with its findings with any exceptions or additional findings as below. Plan of care was discussed with the attending, Dr. Aceves. Patient is a 85-year-old male with past medical history of BPH who was BIBA from home due to altered mental status and notable left-sided flaccid paralysis, last known well time around 12 am per the family member who called EMS. Patient has a chronic indwelling Mayo catheter. Stroke alert was immediately called in ED and Teleneuro evaluated the patient, obtaining a NIHSS score of 20. CT head was negative for acute findings, CTA head/neck was negative for cerebral large vessel occlusions or thrombus. On examination the patient has 0/5 strength in the left upper and left lower extremity. He also has a right deviated gaze. Pupils are equal and reactive and the patient is able to follow commands however is hard of hearing and unable to verbalize more than a few words. Will order MRI brain, echo, and rest of stroke protocol workup. UA is indicative of UTI with WBCs, bacteria, and positive leukocyte esterase. Patient also presented with severe LIBRADO on CKD with creatinine 5.7 and GFR 9. Troponin was elevated 0.972 likely NSTEMI type 2 in the setting of sepsis and will trend. While in the ED patient vomited reddish-brown emesis, was tested positive for occult blood, and GI Dr. Blanton was consulted from the ED and agreed to complete endoscopy. Will continue pantoprazole drip and keep patient NPO. IV Zosyn was started for UTI. Melissa Baker, PGY-3 Documentation for date of: 09/11/25 HPI History of Present Illness History of present illness: (At the time of interview, patient was obtunded and unable to act as a reliable historian. The account below was synthesized primarily via chart review.) Patient is an 85-year-old male with PMH of BPH and wheelchair-bound status who was BIBA from home on 09/11/25 due to altered mental status and notable left- sided flaccid paralysis. Per family member who called EMS, patient's last known well time was around midnight. Upon arrival to the ED, patient was noted to have a GCS of 14 and it was reported that his family members were unable to provide the ED provider with a clear history. During this pattern chart writer's interview, no family members were present to act as a historian in patient's stead. However, nursing staff mentioned that the patient had an episode of what appeared to be coffee- ground emesis which was concerning for GI bleed and patient was found to have a positive fecal occult test. In the ED, vitals showed: BP 128/75 HR 130 RR 31 Temp 98.8 SpO2 100% on room air CBC showed hemoglobin 13.0 but otherwise WNL. Coagulation panel showed PT 13.5 but otherwise WNL. CMP showed bicarbonate 15.6, anion gap 19, BUN 68, creatinine 5.7, eGFR 9, lactic acid 3.1, magnesium 1.7, troponin 0.972, Vitamin B12 702, procalcitonin 57.52, and TSH 4.71. UA suggestive of UTI. UDS grossly negative. Imagin/18 CXR negative for aspiration pneumonia. 09/[address] negative for acute hemorrhage, mass effect, or midline shift. 09/11 head/neck CTA negative for significant neck arterial stenoses or cerebral large vessel arterial occlusions/thrombus. 09/11 EKG showed sinus tachycardia 119 with occasional VPCs and prolonged QTc 490. In the ED, Stroke Alert was called and Tele-Neurology evaluated the patient, obtaining a NIHSS score of 20. While there, patient received Zosyn IV, Zofran IV, Protonix IV (and started on Protonix gtt), thiamine IV, and 3 L IV LR fluid. Patient was admitted for the work-up and management of stroke-like symptoms, altered mentation, suspected GI bleed, UTI with severe sepsis (procalcitonin 57.52), and LIBRADO on CKD. GI was consulted due to concern for GI bleed and is closely following the case. Review of Systems Review of Systems Systems Reviewed: All systems reviewed, normal except as documented Exam Vital Signs Temp Pulse Resp BP Pulse Ox O2 Del Method 96.1 F L 116 H 21 H 123/92 H 100 Room Air 09/11/25 15:36 09/11/25 15:36 09/11/25 15:36 09/11/25 15:36 09/11/25 15:36 09/11/25 15:36 Narrative Exam General: A/O x0, thin, frail-appearing elderly man in acute distress. Skin: Warm, dry, intact, no obvious rash. Head: Normocephalic, atraumatic. Eyes: Right deviated gaze. PERRL. EOMI. Anicteric, vision grossly intact. Ears: Possible presbycusis. No ear pain, no ear discharge. Nose: No nasal discharge. Mouth/Throat: Dried blood in the mouth. Oral mucosa dry. No obvious lesions in oropharynx. Neck: Neck supple, non-tender, no cervical lymphadenopathy. Cardiovascular: Tachycardic rate and rhythm, no murmur, no JVD or carotid bruits. +S1/S2. Respiratory: Bilateral lungs are clear to auscultation, respirations unlabored, no crackles, no wheezing. No accessory muscle use. Gastrointestinal: Hypoactive bowel sounds. Soft, nontender, non-distended, no palpable masses. No guarding or rebound tenderness. Genitourinary: Chronic indwelling Mayo catheter in place. Extremities: Symmetrical, no significant deformities. No edema, no cyanosis, no clubbing. Fingernails dirty-appearing. 1+ radial pulse bilaterally, 1+ posterior tibial pulse bilaterally. Neuro: 0/5 strength in the left upper and lower extremities. Results: Labs 09/11/25 12:10 09/11/25 18:32 Labs: Short CBC 09/11/25 Range/Units 12:10 WBC 8.6 (3.8-10.6) Thou/mm3 Hgb 13.0 L (13.5-16.0) g/dL Hct 37.6 L (41.0-53.0) % Plt Count 279 (140-440) Thou/mm3 BMP 09/11/25 13:16 Sodium 139 Potassium 3.4 Chloride 104 Carbon Dioxide 15.6 L BUN 68 H Creatinine 5.7 H* Glucose 116 H Calcium 8.4 Cardiac Enzymes 09/11/25 Range/Units 13:16 Troponin I 0.972 H* (0.0-0.045) ng/mL Liver Function 09/11/25 Range/Units 13:16 Total Bilirubin 0.5 (0.3-1.2) mg/dL AST 24 (0-34) U/L ALT < 7 L (10-49) U/L Alkaline Phosphatase 72 (46-116) U/L Albumin 3.3 L (3.4-4.8) gm/dL Urine 09/11/25 Range/Units 13:10 Urine Color [place] A (Lt Yel-Yel) Urine Clarity Cloudy A (Clear/Hazy) Urine pH 7.0 (5.0-7.0) Ur Specific [place] 1.026 (1.001-1.035) Urine Protein 3+ A (Neg - Trace) Urine Glucose (UA) Negative (Negative) Quality Measures Quality Measures none Advance care planning discussed with:: patient Medications Home Medications and Allergies Home Medications ?Medication ?Instructions ?Recorded ?Confirmed ?Type midodrine 10 mg tablet 10 mg PO BID 12/25/24 History Allergies Allergy/AdvReac Type Severity Reaction Status Date / Time No Known Allergies Allergy Verified 12/25/24 10:59 Visit Medications Acetaminophen (Acetaminophen Supp 650 Mg Supp) 650 mg NC Q6H PRN PRN Reason: PAIN SCALE 1-3 (mild Stop: 10/11/25 15:36 Aspirin (Aspirin Ec 81 Mg Tabec) 81 mg PO QDAY [facility] Stop: 10/12/25 08:59 Atorvastatin Calcium (Atorvastatin Calcium 20 Mg Tablet) 40 mg PO HS SYBIL Stop: 10/11/25 20:59 Pantoprazole Sodium (Protonix/Ns 80mg Iv Premix) 80 mg in 100 mls @ 10 mls/hr IV Q10H [facility] Stop: 09/14/25 11:54 Last Admin: 09/11/25 14:08 Dose: 10 mls/hr Piperacillin Sod/Tazobactam (Sod 2.25 gm/ Sodium Chloride) 100 mls @ 200 mls/hr IV Q8HR [facility]; Protocol Stop: 09/18/25 21:59 Lactated Ringer's (Lactated Ringers) 1,000 mls @ 100 mls/hr IV .Q10H [facility] Stop: 09/12/25 01:46 Last Admin: 09/11/25 15:51 Dose: Not Given Lactated Ringer's (Lactated Ringers) 1,000 mls @ 999 mls/hr IV .Q1H1M ONE Stop: 09/11/25 16:48 Lactated Ringer's (Lactated Ringers) 1,000 mls @ 999 mls/hr IV .Q1H1M ONE Stop: 09/11/25 16:52 Lactated Ringer's (Lactated Ringers) 1,000 mls @ 75 mls/hr IV .[id number] SYBIL Stop: 10/11/25 15:44 Ondansetron HCl (Ondansetron Inj 2 Mg/Ml Inj 2 Ml) 4 mg IVP Q4HR PRN PRN Reason: NAUSEA OR VOMITING Stop: 10/11/25 12:10 Discontinued Medications Aspirin (Aspirin Ec 81 Mg Tabec) 81 mg PO X1 ONE Stop: 09/11/25 13:50 Last Admin: 09/11/25 13:56 Dose: Not Given Clopidogrel Bisulfate (Clopidogrel Bisulfate 75 Mg Tablet) 300 mg PO X1 ONE Stop: 09/11/25 13:49 Last Admin: 09/11/25 13:56 Dose: Not Given Lactated Ringer's (Lactated Ringers) 1,000 mls @ 999 mls/hr IV .Q1H1M ONE Stop: 09/11/25 13:12 Last Admin: 09/11/25 12:36 Dose: Not Given Lactated Ringer's (Lactated Ringers) 1,000 mls @ 999 mls/hr IV .Q1H1M ONE Stop: 09/11/25 13:12 Last Infusion: 09/11/25 14:48 Dose: Infused Piperacillin/Tazobactam/Dextrose (Zosyn) 3.375 gm in 50 mls @ 100 mls/hr IV X1 ONE; Protocol Stop: 09/11/25 13:03 Last Infusion: 09/11/25 13:20 Dose: Infused Ondansetron HCl (Ondansetron Inj 2 Mg/Ml Inj 2 Ml) 4 mg IVP X1 ONE; Protocol Stop: 09/11/25 13:56 Last Admin: 09/11/25 14:07 Dose: 4 mg Pantoprazole Sodium (Pantoprazole Inj 40 Mg Vial) 40 mg IVP X1 ONE Stop: 09/11/25 13:56 Last Admin: 09/11/25 14:08 Dose: 40 mg Thiamine HCl (Thiamine Inj 100 Mg/Ml Vial 2 Ml) 100 mg IVP X1 ONE Stop: 09/11/25 15:14 Last Admin: 09/11/25 15:28 Dose: 100 mg Assessment & Plan Plan Patient is an 85-year-old male with PMH of BPH and wheelchair-bound status who was BIBA from home on 09/11/25 due to altered mental status and notable left- sided flaccid paralysis. Patient was admitted for the work-up and management of stroke-like symptoms, altered mentation, suspected GI bleed, UTI with severe sepsis (procalcitonin 57.52), and LIBRADO on CKD. #Stroke-like symptoms, left-sided flaccid paralysis Initial 09/11 presentation: left-sided flaccid paralysis with 0/5 strength of LUE and LLE as well as right deviated gaze Stroke Alert called upon arrival in the ED with NIHSS score 20 as evaluated by Tele-Neurology [facility] about 18 hours prior to admission, no TNK administered 09/11 CT head and CTA head/neck were negative for acute findings Dx: -09/11 head MRI ordered, showed ___ -09/11 echocardiogram with bubble study ordered, showed ___ -09/11 lipid panel, showed ___ -09/11 hemoglobin A1c, showed ___ (last A1c 5.7 from 05/18/24) -09/11 TSH, results WNL Rx: -Atorvastatin 40 mg PO qHS -Holding aspirin 81 mg PO qD (concern for GI bleed) -PO/NC acetaminophen 650 mg prn for T > 100.3 -IV fluid resuscitation -Head of bed elevation > 30 degrees -Permissive hypertension of SBP < 220 or end organ damage -Ordered PT referral -Ordered nurse swallow screen and speech evaluation referral -Neurology consulted, appreciate recommendations #Altered mental status Initial 09/11 presentation: GCS 14, confused-appearing, able to follow commands but unable to answer A&O inquiries Likely 2/2 multifactorial etiologies DDx: 1. UTI/sepsis 2. Metabolic derangements (azotemia/uremia) 3. Acute ischemic stroke Dx: -Head MRI as mentioned above Rx: -Thiamine 100 mg IV qD -Correct electrolyte derangements as appropriate -Treat underlying etiology #Severe sepsis, likely 2/2 #Complicated UTI (male sex, indwelling Mayo catheter, and i/s/o severe sepsis) #HAGMA #Lactic acidosis 09/11 admission WBC WNL, bicarbonate 15.6, anion gap 19, lactic acid 2.9, procalcitonin 57.52 09/11 UA strongly suggestive of UTI Patient has a chronic indwelling Mayo catheter High anion gap metabolic acidosis likely 2/2 lactic acidosis with severely reduced excretion of acidic protons by heavily impaired kidney function Dx: -09/11 UCx ordered, showed ___ -09/11 BCx ordered, showed ___ Rx: -Zosyn 2.25 g IV q8HR, renally dosed [09/11--] -IV fluid resuscitation #GI bleed #Coffee-ground emesis Initial 09/11 presentation: reported episode of coffee-ground emesis 09/11 admission hemoglobin 13.0 (MCV 82, RDW 47.9) Dx: -Pending likely upper endoscopy, showed ___ Rx: -NPO status, pending upper endoscopy -Protonix gtt -Zofran 4 mg IV q4HR prn for N/V -Continue to monitor CBC, transfuse if Hgb<7 -GI consulted, appreciate recommendations #LIBRADO on CKD #Hx of BPH with chronic indwelling Mayo catheter Patient with acute kidney injury (LIBRADO), defined by a rise in serum creatinine >=.3 mg/dL within 48 hours or >=.5? baseline within 7 days, and/or urine output <0.5 mL/kg/hr for >6 hours. Admission creatinine: [5.7], baseline: [possibly 1.9]. Etiology likely multifactorial: - Pre-renal: [e.g., volume depletion, hypotension, sepsis] - Post-renal: [e.g., obstruction?BPH] Rx: -If hypovolemic: IV isotonic fluids (e.g., NS 500?1000 mL bolus, then reassess) -If volume overloaded: Diuresis with furosemide IV [e.g., 40?80 mg IV push], monitor urine output -Strict I's & O's and daily weights -Review medications for nephrotoxins (NSAIDs, ACEi/ARBs, contrast, aminoglycosides) -If K >5.5, initiate treatment (e.g., calcium gluconate IV, insulin + D50, albuterol, kayexalate or lokelma) -If pH <7.2 consider sodium bicarbonate IV -Consider nephrology consult if HD needed for: - Refractory hyperkalemia - Severe acidosis - Volume overload unresponsive to diuretics - Uremic symptoms (e.g., pericarditis, encephalopathy) OR unclear etiology for LIBRADO OR worsening renal function despite treatment #Troponinemia, likely type II NSTEMI demand ischemia 2/2 sepsis, down-trended 09/11 admission troponin 0.972->0.764 Likely 2/2 hypoperfusion in the setting of sepsis Rx: -Discontinue trending of troponin levels Hospital Management: Disposition: Tele Diet: NPO GI Prophylaxis: Protonix gtt Bowel Prophylaxis: None DVT Prophylaxis: SCDs (concern for GI bleed) CODE STATUS: Full Code I have examined the patient and conferred with my attending, Dr. Aceves, and my senior resident, Dr. Baker, regarding them. Julius Pearson DO PGY-1 Internal Medicine Attending Provider Attestation/Addendum I or my resident physicians have discussed care with the ED physician and I have made the decision to admit. I have discussed and was present for the essential components of the history, physical examination, diagnosis, and treatment plan with the resident. I agree with the patient's care as documented by the resident and amended herein by me. Leighton Aceves DO. Although this document has been carefully reviewed, there may still be some phonetic and other typographical errors. These errors are purely grammatical due to imperfections in the software program and should not be construed in any way to compromise the substance of the patient's medical care during this visit. Patient seen and evaluated in the ED. In short, 85-year-old male with a significant past medical history of prostamegaly, ?Prostate cancer, obstructive uropathy with hydronephrosis,chronic indwelling Mayo catheter, urinary retention, HFrEF with an EF of 40%, and rhabdomyolysis was brought in by ambulance due to acute encephalopathy and left-sided motor deficits. Apparently last known well was approximately 12 AM per the family. In the ED a stroke alert was immediately called, on arrival patient was normotensive however tachycardic with a pulse of 130, tachypnea with a respiratory rate of 31 and afebrile. SpO2 100% on room air. CBC largely unremarkable with a WBC count of 8.6, BMP demonstrated normal sodium potassium, bicarb level was 15.6, anion gap 19, BUN 68 and a creatinine of 5.7, baseline appears to be around 1.6. Osmolality 298, lactic acid 3.1, troponin 0.92, procalcitonin 57, and UA positive most notably for WBC of 370, RBC of 357 positive leuk esterase with 3+ protein. Chest x-ray was unremarkable, CT head negative for any acute intracranial pathology or CVA, CTA head and neck also negative for any LVO, EKG demonstrated sinus tachycardia with a QTc interval of 490. Of note, when the patient was in the ED, nursing staff did notify us with what appeared to be coffee-ground emesis from the patient, patient did have a positive FOBT. Also in the ED the patient was given 2 L LR, a dose of Zosyn, aspirin and Plavix and started on pantoprazole drip for possible GI bleed. Patient admitted to telemetry, significant problem list as follows: #CVA #Sepsis secondary to complicated urinary tract infection likely with gram- negative organisms #Complicated UTI #LIBRADO on CKD, creatinine 5.7 on admission, baseline approximately 1.6, likely prerenal #GI bleed with associated hematemesis #Elevated troponin likely secondary to demand ischemia #Acute encephalopathy likely toxic/metabolic however may be neurologic #Lactic acidosis #Uremia #Sinus tachycardia likely secondary to dehydration #History of HFrEF with an EF of 40%, last echo 06/27/2024 Plan: Teleneurology consulted in the ED, did recommend usual stroke precautions as well as DAPT which was started in the ED. We will maintain permissive hypertension for at least 24 hours. MRI brain and echocardiogram ordered, we will also obtain a speech evaluation and physical therapy. For the patient's UTI, patient started on Zosyn, renally dosed and we will continue gentle fluids, blood and urine cultures are pending. For the patient's GI bleed, gastroenterology has been consulted, patient is n.p.o. will continue Protonix drip, patient will likely need EGD. For the patient's elevated troponin will continue to trend and consult cardiology if needed however I do believe this is demand ischemia. An echo however is ordered considering patient's history of HFrEF with an EF of 40%. The patient is becoming a bit hypothermic hence warming blankets will be needed, I did order additional imaging as well for the patient's LIBRADO to include a CT abdomen and pelvis without contrast as well as a bilateral renal ultrasound which are both pending. Urine electrolytes to include spot protein and creatinine are also pending I will consider nephrology consult in the a.m. Will continue to monitor closely.
--- NOTE | 2025-09-11 15:57 | ECHO_ITS ---
Patient Info Name: Arsen Alcantar Age: 85 years : 1940 Gender: Male Ht: 183 cm Wt: 61 kg BSA: 1.75 m2 BP: 100 / 59 mmHg HR: 118 bpm Exam Date: 09/12/2025 2:51 PM Admit Date: 09/11/2025 Site: [facility] Room Number: 256 Patient Status: I Technical Quality: Poor Exam Type: CA echo doppler complete Reason for Poor Study: poor patient cooperation, body habitus, patient intubated Senior Analytical Chemist: Kavitha Brody Ordering Physician: Anthony Torres Study Info Indications stroke - Primary Location: S2SX Left Ventricular Outflow Tract Name Value Normal LVOT Doppler LVOT Peak Velocity 51 cm/s LVOT Mean Gradient 1 mmHg LVOT VTI 8 cm LVOT VTI/AV VTI Ratio 0.4 Mitral Valve Name Value Normal MV Doppler MV Decel [place] 679 cm/s2 MV PHT 27 ms MV Area (PHT) 8.2 cm2 4.0-5.0 MV Diastolic Function MV E Peak Velocity 62 cm/s MV A Peak Velocity 62 cm/s MV E/A 1.0 MV Annular TDI MV Lateral e' Velocity 7.5 cm/s MV E/e' (Lateral) 8.3 Tricuspid Valve Name Value Normal TV Regurgitation Doppler TR Peak Velocity 189 cm/s Aortic Valve Name Value Normal AV Doppler AV Peak Velocity 104 cm/s AV Mean Gradient 2 mmHg AV VTI 19 cm AV DI (Phil) 0.49 Ventricles Name Value Normal LV Dimensions 2D/MM IVS Diastolic Thickness (2D) 0.8 cm 0.6-1.0 LVID Diastole (2D) 5.6 cm 4.2-5.8 LVIW Diastolic Thickness (2D) 0.9 cm 0.6-1.0 LVID Systole (2D) 5.2 cm 2.5-4.0 LV Mass (2D Cubed) 178.15 g 88.00-224.00 LV Mass Index (2D Cubed) 102 g/m2 49-115 Relative Wall Thickness (2D) 0.32 <=0.42 IVS/LVIW Diastolic Thickness (2D) 0.89 0.00-1.50 LV Fractional Shortening/Ejection Fraction 2D/MM LV Fractional Shortening (2D) 7 % 25-43 LV EF (2D Teichholz) 16 % Summary 1. Indication: Stroke. 2. Poor quality images and suboptimal study. Will need a repeat study when patient cooperative and can lay on the side. Technically difficult study and patient also has pectus chest and intubated. Cardiac chambers not visualized well. Also patient tachycardic with possible arrhythmia. 3. Left ventricular size appears normal and patient appears to have severe systolic dysfunction with an EF of around 30 to 35%. Bubble study not performed and rest of the LV parameters are also not evaluated. 4. RV,RA and LA not well visualized. Report Signatures Finalized by Luis Daniel Anna on 09/13/2025 08:34 PM
[2025-09-11 16:06] LABS: Vitamin B12 702 pg/mL (211-911)
[2025-09-11 16:21] LABS: Thyroid Stimulating Hormone 4.71 uIU/mL (0.55-4.78)
[2025-09-11] MEDS: RINGERS LACTATED 1000 ML 1,000 ML 100 ML IV (16:23)
[2025-09-11 16:39] LABS: Acetaminophen 2.1 mcg/mL (10.0-20.0)
--- NOTE | 2025-09-11 17:23 | PC.NURSE ---
Spoke with patient grandson juan manuel,[phone] regarding MRI checklist, per Juan Manuel he will have his Mother Zuleima call to do check off list.
--- NOTE | 2025-09-11 18:29 | XR_ITS ---
Examination: CT abdomen and pelvis without contrast. Coronal 3-D reconstructions. Sagittal 2-D reconstructions. Date and time of exam: September 11, 2025, 1929 hours, comparison CT chest abdomen pelvis May 18, 2024 INDICATIONS: Left-sided body weakness gastrointestinal bleeding beginning 2 days ago CTDI: vol (mGy): 6.48 DLP: (mGycm): 405 Technique: Axial images of the abdomen have been obtained, 3 mm slice thickness Intravenous contrast material has not been administered. Low dose protocols were performed. One or more of the following dose reduction techniques were used; automated exposure control, adjustment of the mA and/or KV according to patient size, use of iterative reconstruction technique. Findings: Bibasilar pneumonia with small pleural effusions Portal venous air Fluid, ascites peripheral to the liver and spleen and throughout the abdomen Emphysematous gastritis, air in the wall of the stomach, air distended stomach Abnormal fluid distended small bowel loops, small bowel loops show wall thickening and air in the small bowel loops consistent with ischemia Scarred atrophic kidneys with benign upper pole left renal cyst Aortic calcification no aneurysmal dilatation Bladder is contracted and markedly thick-walled Severe osteopenia Urinary Mayo catheter in the bladder Prostatomegaly AP dimension 5.2 cm IMPRESSION: Bibasilar pneumonia with small pleural effusions Portal venous air in the liver Ascites Emphysematous gastritis Markedly abnormal small bowel loops, thickened small bowel loop vargas and air in the bowel consistent with ischemic bowel Recommend repeating the study with intravenous contrast to assess for air in the portal venous system Recommend surgical consultation
--- NOTE | 2025-09-11 18:36 | XR_ITS ---
Examination: Retroperitoneal ultrasound, complete Technique: Multiple high resolution grayscale images of the retroperitoneum obtained, including kidneys and bladder. Exam date and time: September 11, 2025, 1859 hours INDICATIONS: Renal insufficiency today. FINDINGS: Right kidney 9.6 cm renal cortex 1.2 cm Left kidney 8.5 cm renal cortex 1.1 cm Moderate renal parenchymal scar formation No hydronephrosis Contracted urinary bladder IMPRESSION: Bilateral renal cortical thinning Moderate bilateral renal scar formation
[2025-09-11 18:52] LABS: Lactate (Lactic Acid) 3.4 mMol/L (0.4-2.0)
[2025-09-11 19:34] LABS: Albumin, Serum 3.2 gm/dL (3.4-4.8); Anion Gap 18 (7-16); BUN/Creatinine Ratio 13 Ratio (12-20); Blood Urea Nitrogen 66 mg/dL (9-23); Calcium 8.6 mg/dL (8.3-10.6); Calcium (Corrected) 9.2 mg/dL (8.5-10.1); Carbon Dioxide 15.2 mMol/L (20.0-31.0); Chloride 106 mMol/L (98-107); Creatinine (Component) 5.0 mg/dL (0.6-1.3); Estimated Creatinine Clearance 9.2 mL/min (>60); Glucose 120 mg/dL (74-106); Osmolality,Calculated 297 (275-295); Phosphorous 5.8 mg/dL (2.4-5.1); Potassium 3.8 mMol/L (3.4-5.1); Sodium 139 mMol/L (136-145); eGFR 11 See Note
[2025-09-11 19:37] LABS: Troponin I 0.764 ng/mL (0.0-0.045)
[2025-09-11 20:32] LABS: Chloride,Urine Random < 20.0 mMol/L (55.0-125.0); Potassium,Urine Random 74 mMol/L (12-62); Protein Total, Random Urine 192 mg/dL (1-14); Sodium,Urine Random 17.5 mMol/L (20.0-110.0); Urea Nitrogen, Random Urine 319.0 mg/dL (350.0-1000.0)
[2025-09-11 21:51] LABS: Reflex Lactate? Y
[2025-09-11] MEDS: PIPERACILLIN/TAZO 2.25GM INJ 2.25 GM in SODIUM CHLORIDE 0.9% (POP) 100 ML IV (22:04)
[2025-09-11 22:07] LABS: Lactic Acid, 3 HR 2.3 mMol/L (0.4-2.0)
[2025-09-12] VITALS (102 sets, daily range): BP systolic 67–190; BP diastolic 44–121; PULSE 86–128; RESP 0–32; TEMP 36–36.9; O2SAT 94–100; BMI 18.3
--- NOTE | 2025-09-12 | XR_ITS ---
Examination: MRI brain without intravenous contrast. Date and time of exam: September 12, 2025, 0802 hours INDICATIONS: Onset altered mental status September 11, 2025 with left-sided paralysis Technique: Multiple axial and sagittal images of the brain obtained. Siemens high-resolution 1.5 Z[employer]a short bore scanners utilized. Sagittal sections, T1-weighted, TR 500, TE 14, are performed. Axial sections proton-density and T2-weighted have been obtained. Inversion recovery axial images, TR 9, 260, TE 111, TI 2500. Diffusion weighted images, axial sections, TR 4800, TE 128, B value 1000 Axial sections, ADC map, TR 4800, TE 128 Findings: Enlargement of the sella turcica is not present. The optic chiasm and infundibular are not remarkable. Prepontine and interpeduncular cisterns are not enlarged. There is no localized enlargement of the medulla or shar. Fourth ventricle and cerebellar tonsils appear normal in position. No subacute area of hemorrhage density is seen. Mass in the cerebellopontine angle region is not evident. Globes symmetrical. Orbital musculature including medial lateral rectus muscles do not exhibit abnormality. Diffusion-weighted images demonstrate multiple embolic type foci restricted diffusion, right occipital lobe, right thalamus, posterior right parietal lobe high right parietal lobe, the largest focus in the right frontal parietal lobe diffusion image 19, measuring 24 mm. Increased white matter signal prominent Mass effect upon the ventricular system is not identified. Impression: Multiple embolic type acute infarcts right occipital lobe, right thalamus, right posterior parietal lobe, high right parietal lobe
[2025-09-12] MEDS: PANTOPRAZOLE/NS 80MG IV PREMIX 80 MG/100 ML BAG 10 MG IV (00:20)
[2025-09-12] MEDS: Sodium Bicarb Inj 8.4% SYR 50 ML SYRINGE IV ×2 (00:38→01:52)
[2025-09-12 00:41] LABS: Base Excess -8 (-3-3); HCO3 15 mEq/L (20-26); Inspired Oxygen, FIO2 21 %; O2 Saturation 96 % (91-98); PCO2 23 mmHg (32.0-48.0); PO2 75 mmHg (83-108); pH, Arterial 7.42 (7.35-7.45)
[2025-09-12 00:42] LABS: Allen Test Performed/OK; Puncture Site Right Radial
[2025-09-12] MEDS: RINGERS LACTATED 1000 ML 500 ML 999 ML IV (00:50)
--- NOTE | 2025-09-12 01:20 | PD.SURCONS ---
HPI Consult details Consult date: 09/12/25 Reason for consultation narrative: Ischemic bowel History of present illness: I was asked to evaluate the patient at 12:[address] in the morning for CT scan report of possible ischemic bowel. There are no family members at bedside, history is obtained from medical records. 85-year-old male was admitted with altered mental status. CT of head did not show hemorrhage, CTA was unremarkable. He was reportedly had coffee-ground emesis. He was noted to have elevation of troponin and in acute renal failure. A CT scan of abdomen and pelvis was obtained that revealed fluid in the abdomen, portal venous air, emphysematous gastritis and findings suspicious for ischemic bowel. Meds Home Medications and Allergies Home Medications ?Medication ?Instructions ?Recorded ?Confirmed ?Type midodrine 10 mg tablet 10 mg PO BID 12/25/24 09/11/25 History Allergies Allergy/AdvReac Type Severity Reaction Status Date / Time No Known Allergies Allergy Verified 12/25/24 10:59 Exam Vital Signs Temp Pulse Resp BP Pulse Ox O2 Del Method 97.7 F 124 H 16 93/67 99 Room Air 09/12/25 00:00 09/12/25 00:00 09/12/25 00:00 09/12/25 00:00 09/12/25 00:00 09/12/25 00:00 Constitutional Constitutional: obtunded Routine Abdominal Exam Comments: His abdomen is firm with tenderness to palpation throughout the abdomen Results Results: Laboratory Laboratory results: results reviewed Results: Imaging CT scan - abdomen: report reviewed and image reviewed CT scan - pelvis: report reviewed and image reviewed Assessment & Plan Additional Assessment Additional comments: Clinical exam and CT scan findings are highly suspicious for ischemic bowel Plan A telephone conversation was made with patient's daughter Zuleima Heredia. I explained to her that patient will require exploratory laparotomy, possible bowel resection and possible colostomy. The risks of the procedure that include but not limited to infection, bleeding, injury to bowel, liver, stomach, prolonged need for ventilator support, pneumonia, blood clot, heart attack, stroke and discussed with her, all her questions answered, she agreed and gave verbal consent to proceed with the operation.
[2025-09-12] MEDS: RINGERS LACTATED 1000 ML 1,000 ML 125 ML IV (01:22)
--- NOTE | 2025-09-12 01:25 | PD.RESEVENT ---
Documentation for date of: 09/12/25 Event Note Event Note: Upgrade to ICU--ischemic bowel Nurse called around 12 AM to report results of CT A/P. Showed ischemic bowel. Stat consult placed for Dr. Chahal. I contacted him about the patient over phone call. Repeat renal pannel showed acidosis with bicarb 15. He was given 1 amp of bicarb. BP 93/67, was given another bolus of fluids. Lactic acid downtrended to 2.3. Dr. Chahal came to evaluate patient and was taken STAT to OR for ex lap. Family was updated on findings, concerns for bowel compromise and need for emergent surgery. Risks and benefits were explained by Dr. Chahal. Family gave consent for surgery. Patient will be upgraded to ICU for continued post op care. The patient's management plan was discussed with my attending physician Dr. Garcia. Nenita Beckwith, PGY-2
[2025-09-12 01:27] LABS: Alanine Aminotransferase < 7 U/L (10-49); Albumin, Serum 3.0 gm/dL (3.4-4.8); Albumin/Globulin Ratio 1.3 (1.2-2.2); Alkaline Phosphatase 60 U/L (46-116); Anion Gap 17 (7-16); Aspartate Amino Transferase 21 U/L (0-34); BUN/Creatinine Ratio 15 Ratio (12-20); Bilirubin,Total 0.5 mg/dL (0.3-1.2); Blood Urea Nitrogen 76 mg/dL (9-23); Calcium 7.9 mg/dL (8.3-10.6); Calcium (Corrected) 8.7 mg/dL (8.5-10.1); Chloride 108 mMol/L (98-107); Creatinine (Component) 5.2 mg/dL (0.6-1.3); Estimated Creatinine Clearance 8.8 mL/min (>60); Globulin 2.3 gm/dL (2.3-3.5); Glucose 104 mg/dL (74-106); Osmolality,Calculated 302 (275-295); Potassium 3.9 mMol/L (3.4-5.1); Sodium 140 mMol/L (136-145); Total Protein 5.3 gm/dL (5.7-8.2); eGFR 10 See Note
--- NOTE | 2025-09-12 01:27 | ESCONSULT_ITS ---
<Statement entered by Tyrone Garcia MD - 09/12/25 06:49> I have discussed and was present for the essential components of the history, physical examination, diagnosis, and treatment plan with the resident. I agree with the patient's care as documented by the resident and amended herein by me. Tyrone Garcia MD FACP. HPI Data of Consult Requesting Physician: Armen Aceves DO Admitting Provider: Armen Aceves DO Attending Provider: Armen Aceves DO Primary Care Provider: Physician No Primary/Family Consult Narrative Reason for consult: AMS and abdominal pain History of present illness: This patient is a 85-year-old bedbound male with past medical history of recurrent UTI with indwelling louise cathetar due to BPH and B/L hydronephrosis, history of hypertension in the past and BPH was brought in by EMS on 09/11/25 with chief complaint of altered mental status and acute left-sided weakness. Patient's daughter was contacted at midnight and on inquiry about patient's history she reported that patient stopped eating and drinking with feeling of nausea from last 24 hours prior to admission. His last meal was 48 hours ago. He was having pain in his belly and reported that he does not want to eat anything. She stated that patient has been bedbound from last 1 year after having 2 episodes of UTIs with urine retention requiring indwelling catheter. Patient's daughter reported the patient was not responding well to their commands and was not interactive when they called the EMS. Patient had a bowel movement 1 day ago. [facility] facility comes at home and take care of patient. ED course: Upon arrival to the ED, patient was noted to have GCS of 14 and last well-known time was at midnight. FOBT was positive. On 09/11/2025 during admission, vitals showed blood pressure 128/75, heart rate 130, respiratory 31 and afebrile. He was saturating well on room air. Patient met 2/4 SIRS criteria with tachycardia and tachypnea with possible source urine and abdominal pathology. CBC showed hemoglobin stable at 13. Coagulation panel was within normal limits. CMP showed anion gap metabolic acidosis with bicarb 15 and anion gap 19. Kidney function showed LIBRADO on CKD stage IV with BUN 68 and creatinine 5.7. Baseline creatinine 1.9 from November 2024. Lactic acidosis lactic acid 3.1. Magnesium 1.7. Troponin 0.972. Vitamin B12 702. Procalcitonin 57.52. TSH 4.71. Urinalysis showed significant pyuria and bacteria with positive leukocyte esterase. U tox was negative. Imaging Chest x-ray was negative for aspiration pneumonia. Head and neck CTA and head CT showed no acute pathology. EKG showed sinus tachycardia with occasional PVCs and prolonged QTc 490. In the ED, stroke alert was initiated and teleneuro was consulted with NIHSS score 20. Patient received Zosyn IV, Zofran IV, Protonix IV, thiamine IV and 3 L LR fluid bolus. He was admitted on floors for management and workup of acute encephalopathy with possible concern of stroke, LIBRADO and GI bleed along with UTI. PMH: As above PSH: Nonsignificant SH: Former smoker, no history of drinking alcohol. No history of illicit drug use. Allergies: NKDA Home medications: Midodrine per patient's daughter 09/12/2025: ICU team consulted for ischemic bowel. Patient was seen and examined at the bedside. Patient was barely able to talk due to pain. He was grimacing with pain when belly was palpated. Abdominal soft diffusely tender nondistended scaphoid. Patient was unable to tell if he was passing gas. Mucous membranes dry with decreased cap refill. Blood pressure was 95/65 with heart rate 124, afebrile and saturating well on room air. Patient is AO x 1 [self]. CT scan abdomen pelvis was significant for fluid in the abdomen, portal venous air, emphysematous gastritis and findings suspicious for ischemic bowel. surgery, Dr Chahal was consulted immediately. Orders were placed for 500 cc LR bolus, 2 Amps of bicarb, NG tube with LIS. Patient's family wants to proceed with full treatment. Patient was taken to the OR immediately and family was explained the high risk of mortality given co-morbidities along with ischemic bowel with possible prolong need for ventilator support. Patient is upgraded to ICU for management of ischemic bowel with emergent surgery. At 3:30 AM, Patient came back from the OR and was found that he had purulent peritonitis with dilated stomach and no evidence of small bowel ischemia. Patient will remain intubated overnight on propofol and fentanyl with RASS goal of -2 as patient received paralytic during surgery and exploratory laparotomy. Patient's blood pressure is currently with a MAP below 65 therefore we will continue with Levophed to maintain MAP. Family was updated regarding the postop surgery results. For now we will continue with NG tube with LIS due to dilated stomach. Per surgeon recommendations patient can be started on clear liquid diet tomorrow once extubated safely. cc:: cc: Armen Aceves, DO Review of Systems Review of Systems ROS Unobtainable: unobtainable due to mental status Past Medical History Past Medical History NEUROLOGIC: Negative Neurological Disorders, Cerebrovascular Accident, Transient Ischemic Attacks (TIA), Dementia, Alzheimer's Disease, Parkinson's Disease, Brain Tumor, Meningitis, Seizures, Epilepsy, Multiple Sclerosis, Cerebral Palsy, Amyotrophic Lateral Sclerosis (ALS/Jaida Gehrig's), Guillain-[place] Syndrome, Spina Bifida, Paralysis, Peripheral Neuropathy, Sutton's Palsy, Subdural Hematoma, Migraine, Head Trauma, Spinal Cord Injury or Traumatic Brain Injury CARDIAC: Negative Cardiac Disorders, Myocardial Infarction, Cardiac Arrhythmia, Atrial Fibrillation, Angina, Heart Murmur, Coronary Artery Disease, Atherosclerotic Heart Disease, Peripheral Vascular Disease, Hypercholesterolemia, Aneurysm, Congestive Heart Failure, Congenital Heart Disease, Valvular Heart Disease, Rheumatic Fever, Cardiomyopathy, Edema, Pericarditis, Cellulitis, Deep Vein Thrombosis, Hypertension, Hypotension or Varicose Veins RESPIRATORY: Negative Chronic Obstructive Pulmonary Disease (COPD), Asthma, Bronchitis, Emphysema, Pneumonia, Pulmonary Fibrosis, Cystic Fibrosis, Tuberculosis, Pulmonary Embolism, Pulmonary Edema or Sleep Apnea GASTROINTESTINAL: Negative Gastrointestinal Disorders, Hepatitis, Cirrhosis, Pancreatitis, Celiac Disease, Gall Bladder Disease, Gastrointestinal Bleed, Esophageal Varices, Plaza's Esophagus, Colitis, Ulcerative Colitis, Diverticulitis, Diverticulosis, Ulcer, Colorectal Cancer, Irritable Bowel, Crohn's Disease, Obstructive Bowel, Hiatal Hernia, Hemorrhoids, Gastroesophageal Reflux Disease or Obesity GENITOURINARY: Negative Genitourinary Disorders, Renal Disease, Kidney Stones, Polycystic Kidney Disease, Neurogenic Bladder, Inguinal Hernia, Dialysis, Prostate Cancer or Benign Prostatic Hyperplasia REPRODUCTIVE: Negative Breast Cancer, Fibroids, Genital Herpes, Gonorrhea, Syphilis or Testicular Cancer MUSCULOSKELETAL: Negative Musculoskeletal Disorders, Muscular Dystrophy, Myasthenia Gravis, Marfan's Syndrome, Bone Cancer, Arthritis, Rheumatoid Arthritis, Osteoporosis, Degenerative Disk Disease, Gout, Scoliosis, Carpal Tunnel Syndrome, Fibromyalgia, Fractures, Degenerative Joint Disease, Osteomyelitis or Poliovirus ENT: Negative Cataracts, Glaucoma, Blind, Retinal Detachment, Macular Degeneration, Ear Infection, Deafness, Head Trauma or Eye Prosthesis ENDOCRINE: Negative Endocrine Disorders, Diabetes Mellitus Type 1, Diabetes Mellitus Type 2, Hypoglycemia, Fortunato's Syndrome, [place]'s Disease, Hyperthyroidism, Hypothyroidism, Parathyroid Disease, Pituitary Disease, Systemic Lupus Erythematosus, Syndrome of Inappropriate Antidiuretic Hormone (SIADH), Adrenal Disease or Graves' Disease HEMATOLOGIC: Negative Blood Disorders, Anemia, Leukemia, Hemophilia, Thalassemia, Sickle Cell Disease or Clotting Problems PSYCHO/SOCIAL: Negative Psychiatric Problems, Schizophrenia, Recreational Drug Use, Bipolar Disorder, Depression, Anxiety, Behavior Problems, Self-Mutilation, Attention Deficit Disorder, Attention Deficit Hyperactivity Disorder, Depression, Post Traumatic Stress Disorder or Eating Disorder OTHER HISTORY: Negative Hospitalization, Autoimmune Disease, Down Syndrome, Autism, Developmental Delay, Shingles, Falls, Blood Transfusions, Blood Transfusion Reaction, Anesthesia Reactions, Organ Transplant, Chemotherapy, Radiation Therapy, Hyperbaric Therapy, MRSA, VRSA, Vancomycin-Resistant Enterococci, Human Immunodeficiency Virus (HIV), Chicken Pox, Measles, Mumps, Rubella (Thai Measles), Pertussis, Clostridium Difficile, Cancer, Breast Cancer, Cervical Cancer, Colorectal Cancer, Lung Cancer, Ovarian Cancer, Prostate Cancer or Testicular Cancer Family History FAMILY HISTORY: Negative Family Respiratory Disorders or Family Cardiac Disorders Surgical History SURGICAL: Negative Cardiac Surgery, Open Heart Surgery, Coronary Artery Bypass Graft, Valve Replacement, Vascular Surgery, Coronary Stent, Cardiac Catheterization, Pacemaker, Angiogram, Auto Implanted Cardiovert Defib, Carotid Endarterectomy, Endocrine Surgery, Thyroidectomy, Ear Surgery, Tympanostomy Tube, Eye Surgery, Nose Surgery, Oral Surgery, Tonsillectomy, Adenoidectomy, Cochlear Implant, Corneal Transplant, Throat Surgery, Abdominal Surgery, Tracheostomy, Gastric Bypass Surgery, Gastrostomy, Bowel Surgery, Nephrectomy, Transurethral Resection, Joint Replacement, Amputation, Open Reduction Internal Fixation, Arthroscopy, Neurologic Surgery, Brain Shunt, Mastectomy, Lumpectomy, Hysterectomy, Tubal Ligation, Section, Vasectomy or Organ Transplant Social History SMOKING STATUS: Never smoker SECOND HAND EXPOSURE: No Exam Vital Signs Temp Pulse Resp BP Pulse Ox O2 Del Method 97.7 F 124 H 16 93/67 99 Room Air 09/12/25 00:00 09/12/25 00:00 09/12/25 00:00 09/12/25 00:00 09/12/25 00:00 09/12/25 00:00 Narrative Exam GENERAL APPEARANCE: Elderly frail male was alert and oriented x 1 grimacing with pain now intubated and mech vent HEENT: NC, AT. Dry mucous membrane. EOMI, clear conjunctiva, oropharynx clear. NECK: Supple without lymphadenopathy. No stiffness or restricted ROM. HEART: Sinus tachycardia with regular rhythm, normal S1/S2, no m/r/g LUNGS: CTAB, moving air well. Tachypneic. No crackles or wheezes are heard. ABDOMEN: Soft, diffuse tenderness with scaphoid abdomen with decreased bowel sounds heard. BACK: No CVAT, no obvious deformity. EXTREMITIES: Without cyanosis, clubbing or edema. : Indwelling Louise catheter. NEUROLOGICAL: Grossly nonfocal. AO x 1.Power in left UE and left LE 0/5. Power in Rt UE & LE is 5/5. CN not formally tested but appear grossly intact. Bedbound. Skin: Warm and dry without any rash. Pscyh: Unable to assess Results Labs 09/12/25 04:29 09/12/25 00:34 Labs: Short CBC 09/11/25 Range/Units 12:10 WBC 8.6 (3.8-10.6) Thou/mm3 Hgb 13.0 L (13.5-16.0) g/dL Hct 37.6 L (41.0-53.0) % Plt Count 279 (140-440) Thou/mm3 BMP 09/11/25 09/11/25 13:16 18:32 Sodium 139 139 Potassium 3.4 3.8 Chloride 104 106 Carbon Dioxide 15.6 L 15.2 L BUN 68 H 66 H Creatinine 5.7 H* 5.0 H* D Glucose 116 H 120 H Calcium 8.4 8.6 Cardiac Enzymes 09/11/25 09/11/25 Range/Units 13:16 18:32 Troponin I 0.972 H* 0.764 H* D (0.0-0.045) ng/mL Liver Function 09/11/25 09/11/25 Range/Units 13:16 18:32 Total Bilirubin 0.5 (0.3-1.2) mg/dL AST 24 (0-34) U/L ALT < 7 L (10-49) U/L Alkaline Phosphatase 72 (46-116) U/L Albumin 3.3 L 3.2 L (3.4-4.8) gm/dL Urine 09/11/25 Range/Units 13:10 Urine Color [place] A (Lt Yel-Yel) Urine Clarity Cloudy A (Clear/Hazy) Urine pH 7.0 (5.0-7.0) Ur Specific [place] 1.026 (1.001-1.035) Urine Protein 3+ A (Neg - Trace) Urine Glucose (UA) Negative (Negative) ABG Interpretation ABG results: 09/12/25 00:34 ABG pH 7.42 ABG pCO2 23 L ABG pO2 75 L ABG HCO3 15 L ABG O2 Saturation 96 ABG Base Excess -8 L Quality Measures Quality Measures VTE prophylaxis (SCDS) Advance care planning discussed with:: child (Daughter) Medications Home Medications and Allergies Home Medications ?Medication ?Instructions ?Recorded ?Confirmed ?Type midodrine 10 mg tablet 10 mg PO BID 12/25/24 History Allergies Allergy/AdvReac Type Severity Reaction Status Date / Time No Known Allergies Allergy Verified 12/25/24 10:59 Visit Medications Acetaminophen (Acetaminophen Supp 650 Mg Supp) 650 mg NJ Q6H PRN PRN Reason: PAIN SCALE 1-3 (mild Stop: 10/11/25 15:36 Atorvastatin Calcium (Atorvastatin Calcium 20 Mg Tablet) 40 mg PO HS SYBIL Stop: 10/11/25 20:59 Last Admin: 09/11/25 21:13 Dose: Not Given Hydromorphone HCl (Hydromorphone Inj 2 Mg/Ml Vial) 0.5 mg IVP Q4HR PRN PRN Reason: 4-10 moderate-sev pain Stop: 09/17/25 01:04 Pantoprazole Sodium (Protonix/Ns 80mg Iv Premix) 80 mg in 100 mls @ 10 mls/hr IV Q10H SYBIL Stop: 09/14/25 11:54 Last Admin: 09/12/25 00:20 Dose: 10 mls/hr Piperacillin Sod/Tazobactam (Sod 2.25 gm/ Sodium Chloride) 100 mls @ 200 mls/hr IV Q8HR SYBIL; Protocol Stop: 09/18/25 21:59 Last Infusion: 09/11/25 23:08 Dose: Infused Norepinephrine/Dextrose (Levophed In D5w 8mg/250ml) 8 mg in 250 mls @ 5.741 mls/hr IV .Q24H PRN; Protocol PRN Reason: PER PROTOCOL Stop: 10/12/25 01:11 Lactated Ringer's (Lactated Ringers) 1,000 mls @ 125 mls/hr IV .Q8H SYBIL Stop: 10/12/25 01:12 Last Admin: 09/12/25 01:22 Dose: 125 mls/hr Ondansetron HCl (Ondansetron Inj 2 Mg/Ml Inj 2 Ml) 4 mg IVP Q4HR PRN PRN Reason: NAUSEA OR VOMITING Stop: 10/11/25 12:10 Thiamine HCl (Thiamine Inj 100 Mg/Ml Vial 2 Ml) 100 mg IVP QDAY SYBIL Stop: 10/12/25 08:59 Discontinued Medications Aspirin (Aspirin Ec 81 Mg Tabec) 81 mg PO X1 ONE Stop: 09/11/25 13:50 Last Admin: 09/11/25 13:56 Dose: Not Given Aspirin (Aspirin Ec 81 Mg Tabec) 81 mg PO QDAY [facility] Stop: 10/12/25 08:59 Clopidogrel Bisulfate (Clopidogrel Bisulfate 75 Mg Tablet) 300 mg PO X1 ONE Stop: 09/11/25 13:49 Last Admin: 09/11/25 13:56 Dose: Not Given Lactated Ringer's (Lactated Ringers) 1,000 mls @ 999 mls/hr IV .Q1H1M ONE Stop: 09/11/25 13:12 Last Admin: 09/11/25 12:36 Dose: Not Given Lactated Ringer's (Lactated Ringers) 1,000 mls @ 999 mls/hr IV .Q1H1M ONE Stop: 09/11/25 13:12 Last Infusion: 09/11/25 14:48 Dose: Infused Piperacillin/Tazobactam/Dextrose (Zosyn) 3.375 gm in 50 mls @ 100 mls/hr IV X1 ONE; Protocol Stop: 09/11/25 13:03 Last Infusion: 09/11/25 13:20 Dose: Infused Piperacillin Sod/Tazobactam (Sod 2.25 gm/ Sodium Chloride) 100 mls @ 200 mls/hr IV Q8HR SYBIL; Protocol Stop: 09/18/25 21:59 Lactated Ringer's (Lactated Ringers) 1,000 mls @ 100 mls/hr IV .Q10H SYBIL Stop: 09/12/25 01:46 Last Admin: 09/11/25 15:51 Dose: Not Given Lactated Ringer's (Lactated Ringers) 1,000 mls @ 999 mls/hr IV .Q1H1M ONE Stop: 09/11/25 16:48 Last Admin: 09/11/25 15:54 Dose: Not Given Lactated Ringer's (Lactated Ringers) 1,000 mls @ 999 mls/hr IV .Q1H1M ONE Stop: 09/11/25 16:52 Last Infusion: 09/11/25 16:19 Dose: Infused Lactated Ringer's (Lactated Ringers) 1,000 mls @ 100 mls/hr IV .Q10H ONE Stop: 09/12/25 02:10 Last Infusion: 09/11/25 22:34 Dose: 120 mls/hr Lactated Ringer's (Lactated Ringers) 1,000 mls @ 120 mls/hr IV .Q8H20M ONE Stop: 09/12/25 00:30 Last Admin: 09/12/25 01:23 Dose: Not Given Lactated Ringer's (Lactated Ringers) 500 mls @ 999 mls/hr IV .Q31M ONE Stop: 09/12/25 01:14 Last Admin: 09/12/25 00:50 Dose: 999 mls/hr Ondansetron HCl (Ondansetron Inj 2 Mg/Ml Inj 2 Ml) 4 mg IVP X1 ONE; Protocol Stop: 09/11/25 13:56 Last Admin: 09/11/25 14:07 Dose: 4 mg Pantoprazole Sodium (Pantoprazole Inj 40 Mg Vial) 40 mg IVP X1 ONE Stop: 09/11/25 13:56 Last Admin: 09/11/25 14:08 Dose: 40 mg Pantoprazole Sodium (Pantoprazole Inj 40 Mg Vial) 40 mg IVP QDAY [facility] Stop: 10/12/25 08:59 Sodium Bicarbonate (Sodium Bicarb Inj 8.4% Syr 50 Ml Syringe) 50 ml IV X1 ONE Stop: 09/12/25 00:15 Last Admin: 09/12/25 00:38 Dose: 50 ml Thiamine HCl (Thiamine Inj 100 Mg/Ml Vial 2 Ml) 100 mg IVP X1 ONE Stop: 09/11/25 15:14 Last Admin: 09/11/25 15:28 Dose: 100 mg Assessment & Plan Plan This patient is a 85-year-old bedbound male with past medical history of recurrent UTI with indwelling louise cathetar due to BPH and B/L hydronephrosis, history of hypertension in the past and BPH was brought in by EMS on 09/11/25 with chief complaint of altered mental status and acute left-sided weakness. Head CT was negative for acute stroke. CT abdomen was significant for ischemic bowel. Upgraded to ICU for ischemic bowel requiring emergent surgery. Neurology #Acute encephalopathy DDx: Ischemic Stroke, sepsis due to purulent peritonitis with azotemia and metabolic acidosis, failure to thrive, GI bleed. ischemic bowel rule out Patient is AO x 1 [self]. Patient is bed bound and AOx3 at baseline. Patient has acute left-sided weakness which persisted. Diagnostic Test: Head CT and head and neck CT showed no acute pathology. CT abdomen was concerning for small bowel ischemia.dilated stomach Postop surgery showed purulent peritonitis and dilated stomach. Treatment Plan: ?Postop surgery showed purulent peritonitis and dilated stomach. No evidence of ischemic bowel. Abdominal washout performed. ?NG tube on LIS ?Correcting acidosis ?Continue Protonix 40 mg IV bid Treatment Review: ?Consider dual antiplatelet therapy if MRI significant for stroke ? Will follow-up with brain MRI stroke protocol and echo with bubble study ? Neuro consulted, appreciate recs Cardiovascular #Septic shock DDx: Purulent peritonitis, UTI, community-acquired pneumonia, ?GI bleed. ischemic bowel rule out ?Patient presented with altered mental status and abdominal pain. He met 2/4 SIRS criteria with tachycardia and tachypnea with possible source of infection(pneumonia, UTI and ischemic bowel) ?Vitals showed blood pressure was soft during assessment and postsurgery MAP was below 65. ?Current blood pressure 118/69, heart rate 96, respiratory rate 16, afebrile and saturating well on room air. ?Procalcitonin 52 in the setting of CKD Diagnostic Test: ?CT abdomen was concerning for ischemic bowel and bibasilar pneumonia. -Urinalysis showed bacteria and pyuria with positive leukocyte esterase. Treatment Plan: ?Postop surgery showed purulent peritonitis and dilated stomach. No evidence of ischemic bowel. Abdominal washout performed. NG tube on LIS ?Continue antibiotics ?Levophed as needed to maintain MAP above 65 ? Treating underlying infection ? GI consulted for concern of GI bleed was awaiting endoscopy on Protonix Treatment Review: ?Titrate down Levophed as tolerated #NSTEMI Type 2 -Likely supply demand ischemia EKG showed sinus tachycardia with PVCs. QTc 490. Treatment plan -Troponin peaked and down trended - No complaints of chest pain - Continuous monitoring #Hx of HFmEF 40-45% ?Echo from 06/27/24 showed Normal LV size. Mild systolic dysfunction with mild global hypokinesis. Stage I diastolic dysfunction. - Estimated LVEF 40-45%. Normal RV size and function. Mild AV sclerosis without stenosis. Trace TR. Diagnostic test -EKG showed sinus tachycardia with PVCs and prolonged QTc 490. Treatment plan -No acute intervention Treatment review -Follow-up with vitals Respiratory #Intubated and mechanically ventilated #For airway protection for surgery Diagnostic Test: ?Patient was taken for emergent surgery for concern of ischemic bowel. Treatment Plan: ?Continue with mechanical ventilation with lung protective measures ?Patient can be likely extubated tomorrow after SBT trial since patient was intubated for surgery only and was breathing on room air Treatment Review: ? Follow-up with ABGs and chest x-ray in the morning #Community-acquired pneumonia with small bilateral pleural effusions Diagnostic test ?Patient was not coughing during my assessment. ? CT abdomen pelvis showed bibasilar pneumonia. Treatment plan ? Continue IV antibiotic Zosyn and vancomycin Treatment review ?Follow-up with MRSA screen and blood cultures ?COVID-19 and flu test GI and F/E/N #Concern for acute bowel ischemia, ruled out #Purulent peritonitis status post abdominal washout, 09/12 #Dilated stomach status post NG tube LIS DDx: History of indwelling Louise catheter, ascites seen on CT - Patient was barely able to talk due to pain. He was grimacing with pain when belly was palpated. Abdominal soft diffusely tender nondistended scaphoid. -Patient was unable to tell if he was passing gas. -Mucous membranes dry with decreased cap refill. Blood pressure was 95/65 with heart rate 124, afebrile and saturating well on room air. Diagnostic Test: ?CT abdomen/pelvis showed Bibasilar pneumonia with small pleural effusions. Portal venous air in the liver.Ascites. Emphysematous gastritis. Markedly abnormal small bowel loops, thickened small bowel loop vargas and air in the bowel consistent with ischemic bowel Treatment Plan: ? Surgery consulted patient was taken to the OR for emergent surgery ?Postop surgery showed purulent peritonitis and dilated stomach. No evidence of ischemic bowel. Abdominal washout performed. NG tube on LIS ? Levophed as needed to maintain a MAP above 65 ?Pain management as needed ?Per surgeon recs, patient can be started on clear liquid tomorrow once extubated Treatment Review: #Concern for GI bleed ?Patient presented with coffee-ground emesis per chart review. ?Hemoglobin stable ? FOBT positive Treatment plan ? GI consulted, Dr. Blanton for further evaluation and possible endoscopy ? Patient was pending on EGD however due to CT findings of concern for ischemic bowel patient was taken to the OR ?Continue Protonix 40 mg IV BID for GI prophylaxis ? 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 -Renal US showed Bilateral renal cortical thinning. Moderate bilateral renal scar formation ? Patient received 3.3 L in past 24 hours and had a urine output of 250 mL per chart review. Treatment Plan: ?Avoid nephrotoxic agents ? Renal dose medications ? Strict SERGIO's ? Follow-up with urine output ? nephrology consulted due to acidosis and Dec Uo. In past 24 h UO is 250 ml only with intake of 3.3 L ?Consider hemodialysis if patient's urine output remain minimal ?Follow-up with a.m. PTH and vitamin D Treatment Review: ?Follow-up with renal panel #Hx of indwelling urine catheter - In the setting of history of bilateral hydronephrosis with marked prostamegaly - Per chart review, patient had Moderate bilateral hydronephrosis which is secondary to marked prostatomegaly ?No hydronephrosis seen on renal ultrasound on 09/11 Treatment plan -Continue with indwelling Louise catheter #Mixed acidosis #Anion gap metabolic acidosis #Non-anion gap metabolic acidosis DDx: Sepsis, lactic acidosis, acute kidney injury -Arroyo formula: 28-31 with Resp compensation -Delta delta gap: 0.8 mixed acidosis Diagnostic tests ? Anion gap 17, bicarb 15 ? ABGs showed pH 7.42, pCO2 23 with FiO2 21%. - Repeat ABG showed pH 7.29 pco2 39 Treatment plan ? 2 ampoules of bicarb given ? IV Bicarb drip for metabolic acidosis ?Consider nephrology consult if patient is not making good urine ?Treating underlying ischemic bowel Treatment review ?Will follow-up with CMP #Lactic acidosis -In the setting of septic shock due to purulent peritonitis, UTI and pneumonia Diagnostic text ?Lactic acid was 3.4 down trended to 2.3 Treatment plan ?Abdominal washout performed ?Trend lactic acid Q3 hourly Treatment review ? Treating underlying condition #Electrolyte disturbance #Hyperphosphatemia -In the setting of CKD Treatment plan -No active management Heme #Normocytic anemia DDx: Decreased p.o. intake Diagnostic Test: Hemoglobin 13.0, hematocrit 37 Treatment Plan: ? Type and screen given patient went for urgent surgery ? Follow-up with morning labs ? PRBC if hemoglobin drops below 7 Treatment Review: ?Follow-up with morning labs Endo #Failure to thrive #Low BMI DDx: Decreased P.o. intake ?Patient is bedbound and taken care of by nursing at home. Diagnostic Test: BMI 18.3. Treatment Plan: N.p.o. for now Refer to registered dietitian for low BMI Treatment Review: Follow-up with blood sugar checks Q6 hourly ID #Septic shock DDx: Purulent peritonitis, UTI, CAP Diagnostic Test: ?Patient was found to have significant bowel ischemia and bilateral pneumonia per CT findings. ?Urinalysis showed bacteriuria and pyuria with positive leukocyte esterase with underlying indwelling urine catheter. ?Previous urine cultures grew Pseudomonas sensitive to Zosyn. ?Postop surgery showed purulent peritonitis and dilated stomach. No evidence of ischemic bowel. Abdominal washout performed. NG tube on LIS Treatment Plan: -IV Zosyn, (09/11/2025?) and vancomycin renally dosed, (09/12/2025?) Treatment Review: - Follow-up with blood cultures, MRSA screen and urine cultures [facility] #Osseous metastatic disease per Bone scan in 05/21/24 Per chart review in 2023, bone scan showed Increased isotope accumulation manubrium, right and left shoulders. increased uptake diffusely in the lumbar and thoracic spine as well as sacral segments and right ischium - No active intervention ICU health maintenance DVT prophylaxis: SCDs GI prophylaxis: Protonix 40 iv bid Diet: NPO Louise: Indwelling Louise catheter Lines: Peripherals Drips: Levophed , antibiotics, Protonix Vent: AC/VC CODE STATUS: Full code Reason of hospitalization: Patient is upgraded to ICU for management of concern for ischemic bowel but was found to have purulent perotinitis s/p abd washout & dilated stomach s/p NG LIS. -- Patient discussed with my attending, Dr. Radha pacheco MD, PGY 3
[2025-09-12 01:30] LABS: Carbon Dioxide 15.1 mMol/L (20.0-31.0)
--- NOTE | 2025-09-12 02:06 | PC.NURSE ---
PT TAKEN TO SURGERY ON BED BY OR STAFF.
--- NOTE | 2025-09-12 03:09 | ESOP_ITS ---
Date of Procedure 09/12/25 Pre Op Diagnosis Ischemic bowel Post Op Diagnosis Purulent peritonitis with dilated stomach. No evidence of ischemic bowel or small bowel perforation No evidence of perforated gastric or duodenal ulcer No evidence of perforated diverticulitis or large bowel perforation Procedure Exploratory laparotomy with abdominal washout Findings Purulent fluid throughout the abdomen. Significantly dilated stomach. No evidence of gastric or duodenal perforation. Small bowel appeared healthy and viable and mildly dilated no evidence of ischemic bowel or small bowel perf oration. There is no evidence of perforated diverticulitis or large bowel perforation. Appendix appeared normal Procedure Description Patient was taken to the operating room in supine position. After administration of general tracheal anesthesia, patient's abdomen prepped and draped in standard surgical manner. A laparotomy incision was made from subxiphoid, around into the right of the umbilicus and it was extended just below the umbilicus. Dissection was deepened into soft tissue. Anterior abdominal fascia was divided. Upon entering the abdominal cavity patient was noted large amount of purulent fluid throughout the abdomen. Abdomen was washed and irrigated. The small bowel was eviscerated. Proximal small bowel was mildly dilated. There was no evidence of ischemic bowel. The small bowel was run from ligament of Treitz up to ileocecal junction, small bowel was viable without perforation or evidence of ischemia. The appendix appeared normal. Cecum was mildly dilated there was no evidence of cecal, ascending colon, transverse colon, descending colon or sigmoid perforation. There was no evidence of perforated diverticulitis. The stomach was significantly dilated. Anesthesiologist placed an NG tube to decompress the stomach. The anterior surface of the stomach and duodenum was inspected no evidence of gastric or du odenal perforation noted. The gastrocolic ligament was divided and the lesser sac was entered. The posterior aspect of the stomach was inspected, no evidence of perforation noted. Abdomen was copiously and thoroughly washed and irrigated, all the fluids were suctioned and the suction fluid turn clear. Hemostasis was adequate and satisfactory. Anterior abdominal fascia was closed with running 0 PDS as well as interrupted sutures with #1 Vicryl. The wound was washed and irrigated and incision was closed with flakito. Sterile dressings applied. Patient tolerated procedure well. He remained hemodynamically stable. He was kept intubated and transferred to intensive care unit. Instruments, needles and sponge counts were reported to be correct x 2. Anesthesia GETA Pathology / specimen None Estimated Blood Loss 25 Surgeon Danita Chahal MD Surgical Staff Operation Date: 09/12/25 02:15 Case Staff Anesthesiologist: Juan Nolan RN First Assistant: Sierra Negron
[2025-09-12] MEDS: Norepinephrine/D5W 8mg/250ml 8 MG/250 ML BAG 5.741 MG IV (03:22)
--- NOTE | 2025-09-12 03:24 | XR_ITS ---
EXAMINATION: AP chest single view TECHNIQUE: AP portable supine chest single view Date and time: September 12, 2025, 0334 hours, comparison September 11, 2025 INDICATIONS: Hypoxic respiratory failure post intubation FINDINGS: Endotracheal tube tip 5.7 cm above luz maria Orogastric tube in the stomach satisfactory position Prominent pneumonia left base retrocardiac obscuring detail hemidiaphragm Mild vascular congestion Air distended small bowel loops in the abdomen IMPRESSION: Endotracheal tube tip 5.7 cm above luz maria Orogastric tube in the stomach satisfactory position Prominent left base pneumonia, differential would include aspiration pneumonia
[2025-09-12] MEDS: PROPOFOL 1,000 MG IVPB 1,000 MG/100 ML VIAL 1.837 MG IV (03:47)
[2025-09-12] MEDS: fentaNYL 2,500 MCG/250 ML BAG 2,500 MCG/250 ML BAG IV ×2 (03:52→19:18)
[2025-09-12] MEDS: Magnesium Sulfate 4 GM Ivpb 4 GM/50 ML BAG IV (04:16)
[2025-09-12 04:18] LABS: Base Excess -8 (-3-3); HCO3 19 mEq/L (20-26); Inspired Oxygen, FIO2 50 %; PCO2 39 mmHg (32.0-48.0); PO2 134 mmHg (83-108); pH, Arterial 7.29 (7.35-7.45)
[2025-09-12 04:19] LABS: Allen Test Performed/OK; O2 Saturation 100 % (91-98); Puncture Site Right Radial
[2025-09-12] MEDS: Vancomycin Inj 1,000 MG in SODIUM CHLORIDE 0.9% 250 ML 250 ML 120 MG IV (04:29)
[2025-09-12 04:47] LABS: Lactate (Lactic Acid) 2.4 mMol/L (0.4-2.0)
[2025-09-12 04:56] LABS: Basophils # (Auto) 0.0 Thou/mm3 (0.0-0.2); Basophils % (Auto) 0 % (0-2.5); Eosinophils # (Auto) 0.0 Thou/mm3 (0.0-0.5); Eosinophils % (Auto) 0 % (0-10); Hematocrit 31.7 % (41.0-53.0); Hemoglobin 10.5 g/dL (13.5-16.0); Immature Granulocytes Auto 0.02 Thou/mm3 (0.00-0.00); Lymphocytes # (Auto) 0.6 Thou/mm3 (1.0-4.8); Lymphocytes % (Auto) 15 % (10-50); Mean Corpuscular HGB Conc 33.1 g/dl (31.0-37.0); Mean Corpuscular Hemoglobin 27.1 pg (25.0-35.0); Mean Corpuscular Volume 82 fL (80-100); Monocytes # (Auto) 0.2 Thou/mm3 (0.0-0.8); Monocytes % (Auto) 4 % (0-12); Neutrophils # (Auto) 3.4 Thou/mm3 (1.8-7.7); Neutrophils % (Auto) 81 % (37-80); Nucleated Red Blood Cell # 0.00 Thou/mm3 (0.00-0.00); Nucleated Red Blood Cell % 0 /100 WBC (0); Platelet Count 256 Thou/mm3 (140-440); RDW Standard Deviation 48.5 fL (35.1-43.9); Red Blood Count 3.87 Miln/mm3 (4.50-5.90); White Blood Count 4.2 Thou/mm3 (3.8-10.6)
[2025-09-12] MEDS: Sodium Bicarb 8.4% 50ml Vial* 88.23 MEQ in DEXTROSE 5%-WATER 500 ML 100 MEQ IV (05:39)
[2025-09-12] MEDS: PIPERACILLIN/TAZO 2.25GM INJ 2.25 GM in SODIUM CHLORIDE 0.9% (POP) 100 ML IV ×3 (05:41→21:24)
--- NOTE | 2025-09-12 06:00 | XR_ITS ---
EXAMINATION: AP chest single view TECHNIQUE: AP portable semiupright chest single view Date and time: September 12, 2025, 0546 hours, comparison September 12, 2025 0330 hours INDICATIONS: Hypoxic respiratory failure post intubation FINDINGS: Normal heart size Prominent pneumonia left base obscuring detail left hemidiaphragm Tracheal tube tip 6 cm above luz maria. Orogastric tube in the stomach satisfactory position Mild vascular congestion. No pneumothorax IMPRESSION: Prominent pneumonia remains left base, consider aspiration pneumonia
[2025-09-12 06:06] LABS: Alanine Aminotransferase < 7 U/L (10-49); Albumin, Serum 2.9 gm/dL (3.4-4.8); Anion Gap 19 (7-16); Aspartate Amino Transferase 24 U/L (0-34); BUN/Creatinine Ratio 12 Ratio (12-20); Bilirubin,Total 0.4 mg/dL (0.3-1.2); Blood Urea Nitrogen 61 mg/dL (9-23); Calcium 7.8 mg/dL (8.3-10.6); Carbon Dioxide 16.2 mMol/L (20.0-31.0); Chloride 109 mMol/L (98-107); Creatinine (Component) 5.3 mg/dL (0.6-1.3); Estimated Creatinine Clearance 8.7 mL/min (>60); Glucose 88 mg/dL (74-106); Magnesium 1.6 mg/dL (1.6-2.6); Osmolality,Calculated 303 (275-295); Phosphorous 5.1 mg/dL (2.4-5.1); Potassium 3.9 mMol/L (3.4-5.1); Sodium 144 mMol/L (136-145); Total Protein 5.2 gm/dL (5.7-8.2); eGFR 10 See Note
[2025-09-12 06:07] LABS: Albumin/Globulin Ratio 1.3 (1.2-2.2); Alkaline Phosphatase 60 U/L (46-116); Calcium (Corrected) 8.7 mg/dL (8.5-10.1); Cardiac Risk Estimate 3.1 RATIO (4.0-6.7); Cholesterol 152 mg/dL (132-200); Globulin 2.3 gm/dL (2.3-3.5); HDL Cholesterol 49 mg/dL (40-60); LDL Cholesterol,Calculated 73 mg/dL (0-130); Triglycerides 149 mg/dL (30-150); Vancomycin,Random < 3.0 mcg/mL
[2025-09-12 07:49] LABS: Reflex Lactate? Y
--- NOTE | 2025-09-12 08:03 | PC.PT ---
PT eval received. As per chart, patient is currently intubated and on ventilator. Patient is not appropriate for PT at this time. Will cancel PT evaluation.
[2025-09-12 08:05] LABS: Lactate (Lactic Acid) 1.0 mMol/L (0.4-2.0)
[2025-09-12 08:10] LABS: Beta Hydroxybutyrate 0.7 mmol/L (<0.6)
[2025-09-12] MEDS: MIDAZOLAM INJ 1 MG/ML VIAL 2 ML 2 MG IVP (08:20)
[2025-09-12 08:26] LABS: Parathyroid Hormone Intact 114.8 pg/ml (18.5-88.0)
[2025-09-12 08:41] LABS: Vitamin D 25 Hydroxy Total 9.4 ng/mL (7.3-40.2)
[2025-09-12 08:52] LABS: B-Type Natriuretic Peptide 501 pg/mL (0-100)
--- NOTE | 2025-09-12 09:46 | XR_ITS ---
EXAMINATION: AP chest single view TECHNIQUE: AP portable semiupright chest single view Date and time: September 12 0 25, 10:20 a.m., comparison September 12, 2025 INDICATIONS: Post dialysis catheter insertion FINDINGS: Temporary right internal jugular dialysis catheter tip SVC satisfactory position, no pneumothorax Endotracheal tube tip 6.5 cm above luz maria Orogastric tube in the stomach On this study there appears to be free air beneath the hemidiaphragms IMPRESSION: Temporary right internal jugular dialysis catheter tip SVC satisfactory position, no pneumothorax On this study there appears to be free air beneath the hemidiaphragms, please see the CT abdomen pelvis report September 11, 2025
[2025-09-12] MEDS: THIAMINE INJ 100 MG/ML VIAL 2 ML IVP (10:10)
[2025-09-12] MEDS: HEPARIN SOD INJ 1000 UNIT/ML VIAL 10 ML 2600 UNIT INDWELLCAT (10:12)
--- NOTE | 2025-09-12 10:52 | PC.SS ---
COMPLIANCE PROJECT MANAGER attempted phone contact with patient's daughter, Zuleima Heredia ; to conduct initial assessment. No response. COMPLIANCE PROJECT MANAGER left message requesting return call.
[2025-09-12 10:53] LABS: Base Excess, Venous -7 (-3-3); O2 Saturation, Venous 89 % (96-97); PCO2, Venous 44 mmHg (36-56); PO2, Venous 61 mmHg (15-58); pH, Venous 7.27 (7.33-7.66)
--- NOTE | 2025-09-12 10:53 | PC.SS ---
Update: Patient is currently intubated. No sedation. Patient receiving pressor support. NPO. Afebrile. Possible dialysis today. Dr. Sawyer is consulting. Dr. Chahal is consulting.
[2025-09-12 11:04] LABS: Lactate (Lactic Acid) 1.2 mMol/L (0.4-2.0)
--- NOTE | 2025-09-12 11:26 | PC.DIETICIAN ---
Nutrition prescription - If EN is indicated, consider: Trophic feeds of Vital 1.2 at 20 ml/hr via NG tube by pump. If no IV fluids, water flushes of XX ml/hr (or per MD). Once more stable, advance 10 ml every 8 hrs to goal rate of 55 ml/hr x 24 hrs. - If oral intake is feasible: Cardiac (adjust food/liquids consistency as needed). *Continue with Thiamine 100 mg/day; consider adding Multivitamins/Minerals.
--- NOTE | 2025-09-12 11:44 | PC.SS ---
STREET LIGHT REPAIRER conducted phone contact with the patient?s daughter, Zuleima Heredia to conduct initial assessment and to discuss discharge planning on behalf of the patient.? Patient is currently admitted to the ICU on mechanical ventilation.? Patient resides at home with daughter, spouse and family.? Patient has been bedbound for approximately 1 year.? Patient has access to a mobile chair.? Patient does not utilize home oxygen.? Patient requires assistance with completion of ADL?s.? Family assists the patient with ADL completion.? Patient?s surrogate medical decision maker is daughter, Zuleima Heredia.? Patient utilizes [facility] for PCP services.? Patient?s rn stars is Dr. Dutta.? Patient is not aligned with dialysis, but will be receiving emergent dialysis while in ICU.? Consulting nut roaster is Dr. Sawyer. ?If outpatient dialysis required, drug abuse social worker will initiate chair time with dialysis center.? Patient utilizes [facility] for medication services.? Discharge plan is for the patient to return home.? Patient aligned with [facility] prior to admission.? Plan is to resume [facility].? Home health managing patient?s indwelling louise catheter.? No discharge needs identified by the patient?s daughter. ?No further intervention required at this time, drug abuse social worker will be available to address any further concerns.? Next of Kin: Zuleima Heredia D/C Plan: SNF
--- NOTE | 2025-09-12 11:52 | ESPR_ITS ---
<Statement entered by Isaac Live MD - 09/12/25 17:33> I have reviewed the note and agree with the resident's assessment & plan with exceptions as below. I have personally reviewed labs, imaging, home meds/prior records, examined the patient, formulated and discussed management plan with my attending. Patient seen and examined at bedside this AM. Overnight upgraded to the ICU in the setting of shock and s/p Ex-lap. Patient had an Ex-lap by general surgery due to concern for bowel ischemia. Was not found to have any ischemic bowel, but did have purulent fluid in the abdomen. Patient was on high dose pressors and given worsening kidney function and decreased UO placed a tri-flow for possibility of dialysis and pressor administration. 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 Blood cultures grew GPC therefore will keep vancomycin for now and zosyn for peritonitis. Repeat blood cultures tomorrow if MRSA or MSSA grow in blood cultures. Continue bicarb drip for today and if no improvement in UO or metabolic acidosis then patient will likely require dialysis. Plan for CT abdomen/pelvis with oral contrast to evaluate pnuemonitis intestinalis and air in hepatic venous system. Isaac Live PGY2 Disclaimer: Even though this this note was dictated by speech recognition and even though it was carefully revised there may still be minor errors in coat finisher due to voice recognition software. Documentation for date of: 09/12/25 Subjective Subjective Interval history: History of present illness: This patient is a 85-year-old bedbound male with past medical history of recurrent UTI with indwelling louise cathetar due to BPH and B/L hydronephrosis, history of hypertension in the past and BPH was brought in by EMS on 09/11/25 with chief complaint of altered mental status and acute left-sided weakness. Patient's daughter was contacted at midnight and on inquiry about patient's history she reported that patient stopped eating and drinking with feeling of nausea from last 24 hours prior to admission. His last meal was 48 hours ago. He was having pain in his belly and reported that he does not want to eat anything. She stated that patient has been bedbound from last 1 year after having 2 episodes of UTIs with urine retention requiring indwelling catheter. Patient's daughter reported the patient was not responding well to their commands and was not interactive when they called the EMS. Patient had a bowel movement 1 day ago. [facility] comes at home and take care of patient. ED course: Upon arrival to the ED, patient was noted to have GCS of 14 and last well-known time was at midnight. FOBT was positive. On 09/11/2025 during admission, vitals showed blood pressure 128/75, heart rate 130, respiratory 31 and afebrile. He was saturating well on room air. Patient met 2/4 SIRS criteria with tachycardia and tachypnea with possible source urine and abdominal pathology. CBC showed hemoglobin stable at 13. Coagulation panel was within normal limits. CMP showed anion gap metabolic acidosis with bicarb 15 and anion gap 19. Kidney function showed LIBRADO on CKD stage IV with BUN 68 and creatinine 5.7. Baseline creatinine 1.9 from November 2024. Lactic acidosis lactic acid 3.1. Magnesium 1.7. Troponin 0.972. Vitamin B12 702. Procalcitonin 57.52. TSH 4.71. Urinalysis showed significant pyuria and bacteria with positive leukocyte esterase. U tox was negative. Imaging Chest x-ray was negative for aspiration pneumonia. Head and neck CTA and head CT showed no acute pathology. EKG showed sinus tachycardia with occasional PVCs and prolonged QTc 490. In the ED, stroke alert was initiated and teleneuro was consulted with NIHSS score 20. Patient received Zosyn IV, Zofran IV, Protonix IV, thiamine IV and 3 L LR fluid bolus. He was admitted on floors for management and workup of acute encephalopathy with possible concern of stroke, LIBRADO and GI bleed along with UTI. PMH: As above PSH: Nonsignificant SH: Former smoker, no history of drinking alcohol. No history of illicit drug use. Allergies: NKDA Home medications: Midodrine per patient's daughter 09/12/2025: ICU team consulted for ischemic bowel. Patient was seen and examined at the bedside. Patient was barely able to talk due to pain. He was grimacing with pain when belly was palpated. Abdominal soft diffusely tender nondistended scaphoid. Patient was unable to tell if he was passing gas. Mucous membranes dry with decreased cap refill. Blood pressure was 95/65 with heart rate 124, afebrile and saturating well on room air. Patient is AO x 1 [self]. CT scan abdomen pelvis was significant for fluid in the abdomen, portal venous air, emphysematous gastritis and findings suspicious for ischemic bowel. surgery, Dr Chahal was consulted immediately. Orders were placed for 500 cc LR bolus, 2 Amps of bicarb, NG tube with LIS. Patient's family wants to proceed with full treatment. Patient was taken to the OR immediately and family was explained the high risk of mortality given co-morbidities along with ischemic bowel with possible prolong need for ventilator support. Patient is upgraded to ICU for management of ischemic bowel with emergent surgery. At 3:30 AM, Patient came back from the OR and was found that he had purulent peritonitis with dilated stomach and no evidence of small bowel ischemia. Patient will remain intubated overnight on propofol and fentanyl with RASS goal of -2 as patient received paralytic during surgery and exploratory laparotomy. Patient's blood pressure is currently with a MAP below 65 therefore we will continue with Levophed to maintain MAP. Family was updated regarding the postop surgery results. For now we will continue with NG tube with LIS due to dilated stomach. Per surgeon recommendations patient can be started on clear liquid diet tomorrow once extubated safely. 09/12/25: Patient seen and assessed at bedside. Intubated and sedated. S/p ex lap with washout last night. On propofol and fentanyl overnight, attempt sedation holiday today. Given Versed 2 mg IVP and increased Levophed due to acute drop in BP. Weaned off pressors this afternoon and MAP maintaining >65. On exam, bilateral toes have worsening ischemia. Abdominal surgical incision clean dry and intact, flakito in place, no drainage, pus, or surrounding erythema. Bicarb improving. Lactic acidosis resolved. BHB 0.7 -> 0.4, likely secondary to starvation ketosis. Creatinine improved to 4.8 s/p fluids but increased back to 5.1. MRI showed multiple embolic type acute infarcts right occipital lobe, right thalamus, right posterior parietal lobe, high right parietal lobe. No history of afib, occasional PVCs on telemetry. No known history of CVA. Previous echo 06/2024 showed mild global hypokinesis but no thrombus observed, EF 40-45%. Echo bubble ordered. Placed right IJ Triflow catheter in anticipation for possible dialysis in setting of acute renal failure. Rigth femoral arterial line also placed. GPC in urine and blood culture. Continue treatment with Zosyn and Vanc renally dosed. Spoke to nephrology, no need for dialysis today, will re-evaluate labs tomorrow and may consider Tablo versus conventional dialysis. Ordered CT A/P with oral contrast to further evaluate emphysematous gastritis and air in hepatic venous system. Spoke to GI, will do EGD tomorrow. Updated daughter Zuleima (designated medical POA), agreeable with treatment plan. NPO after midnight. Follow up H&H and repeat renal panel at 8PM. Exam Vital Signs Temp Pulse Resp BP Pulse Ox O2 Del Method FiO2 97.8 F 104 H 16 96/63 100 Room Air 50 09/12/25 08:00 09/12/25 10:45 09/12/25 10:45 09/12/25 10:45 09/12/25 10:45 09/12/25 00:00 09/12/25 10:31 Narrative Exam Physical Exam General: Sedated and intubated. Elderly cachectic male. HEENT: Right pupil approximately 1 mm, left 2 mm. Both reactive to light. No scleral icterus. Normocephalic, atraumatic, mucous membranes dry. Poor dentition. Dried blood covering tongue and lower lip. Right IJ triple flow catheter in place. Heart: Distant heart sounds. Difficult to auscultate but regular rate and rhythm, normal S1 and S2, no murmurs appreciated. Lungs: Decreased lung sounds in bilateral lower lobes. No rhonchi, wheezing, or crackles appreciated. Abdomen: Soft, scaphoid, positive bowel sounds. Midline abdominal surgical scar, flakito in place. Wound clean dry and intact. No surrounding erythema or drainage noted. : Penile ulcer at ventral side of Louise, beefy red but no pus or drainage appreciated. No necrosis. No surrounding erythema. Louise in place, draining minimal urine. Right femoral line in place. Neurologic: Unable to assess at this time. Extremities: Ischemia of bilateral toes extending to top of foot. No edema. Skin: No rash or ecchymoses. Objective Labs 09/12/25 13:35 09/12/25 13:35 Labs: Laboratory Results - last 24 hr 09/11/25 09/11/25 09/11/25 12:10 13:10 13:16 WBC 8.6 RBC 4.58 Hgb 13.0 L Hct 37.6 L MCV 82 MCH 28.4 MCHC 34.6 RDW Std Deviation 47.9 H Plt Count 279 Neut % (Auto) 88 H Lymph % (Auto) 9 L [place] % (Auto) 2 Eos % (Auto) 0 Baso % (Auto) 1 Neut # (Auto) 7.6 Lymph # (Auto) 0.8 L [place] # (Auto) 0.2 Eos # (Auto) 0.0 Baso # (Auto) 0.0 Immature Gran # (Auto) 0.03 H Absolute Nucleated RBC 0.00 Immature Gran % 0 Nucleated RBC % 0 PT 13.5 H INR 1.3 APTT 35.0 Puncture Site ABG pH ABG pCO2 ABG pO2 ABG HCO3 ABG O2 Saturation ABG Base Excess VBG pH VBG pCO2 VBG pO2 VBG O2 Sat (Ly) VBG Base Excess FiO2 Sodium 139 Potassium 3.4 Chloride 104 Carbon Dioxide 15.6 L Anion Gap 19 H BUN 68 H Creatinine 5.7 H* Estim Creat Clear Calc 8.1 L eGFR 9 L* BUN/Creatinine Ratio 12 Glucose 116 H Calculated Osmolality 298 H Lactic Acid 2.9 H Calcium 8.4 Corrected Calcium 9.0 Phosphorus Magnesium 1.7 Total Bilirubin 0.5 AST 24 ALT < 7 L Alkaline Phosphatase 72 Troponin I 0.972 H* B-Natriuretic Peptide Total Protein 5.9 Albumin 3.3 L Globulin 2.6 Albumin/Globulin Ratio 1.3 Triglycerides Cholesterol LDL Cholesterol, Calc HDL Cholesterol Cholesterol/HDL Ratio Vitamin B12 25-OH Vitamin D Total Beta-Hydroxybutyrate/Acetoacetate Procalcitonin 57.52 H TSH PTH Intact Ur Collection Type Catheter Urine Color [place] A Urine Clarity Cloudy A Urine pH 7.0 Ur Specific [place] 1.026 Urine Protein 3+ A Urine Glucose (UA) Negative Urine Ketones Negative Urine Blood 3+ A Urine Nitrite Negative Urine Bilirubin Negative Urine Urobilinogen (Auto) Negative Ur Leukocyte Esterase Positive Urine RBC 357 H Urine WBC 270 H Ur Squamous Epith Cells 0 Amorphous Crystals Present A Urine Bacteria 1+ A Ur Culture Indicated? Yes U Random Total Protein 192 H Ur Random Sodium 17.5 L Ur Random Potassium 74 H Ur Random Chloride < 20.0 L Ur Random Urea Nitrogn 319.0 L Random Vancomycin Urine Opiates Screen Negative Urine Fentanyl Screen Negative Acetaminophen 2.1 L Ur Barbiturates Screen Negative U Amphetamin/Meth Scrn Negative U Benzodiazepines Scrn Negative U Cocaine Metab Screen Negative U Marijuana (THC) Screen Negative HCG (Qual) Negative Blood Type Antibody Screen Blood Bank Wristband ID 09/11/25 09/11/25 09/11/25 15:22 18:32 21:55 WBC RBC Hgb Hct MCV MCH MCHC RDW Std Deviation Plt Count Neut % (Auto) Lymph % (Auto) [place] % (Auto) Eos % (Auto) Baso % (Auto) Neut # (Auto) Lymph # (Auto) [place] # (Auto) Eos # (Auto) Baso # (Auto) Immature Gran # (Auto) Absolute Nucleated RBC Immature Gran % Nucleated RBC % PT INR APTT Puncture Site ABG pH ABG pCO2 ABG pO2 ABG HCO3 ABG O2 Saturation ABG Base Excess VBG pH VBG pCO2 VBG pO2 VBG O2 Sat (Ly) VBG Base Excess FiO2 Sodium 139 Potassium 3.8 Chloride 106 Carbon Dioxide 15.2 L Anion Gap 18 H BUN 66 H Creatinine 5.0 H* D Estim Creat Clear Calc 9.2 L eGFR 11 L* BUN/Creatinine Ratio 13 Glucose 120 H Calculated Osmolality 297 H Lactic Acid 3.1 H 3.4 H 2.3 H Calcium 8.6 Corrected Calcium 9.2 Phosphorus 5.8 H Magnesium Total Bilirubin AST ALT Alkaline Phosphatase Troponin I 0.764 H* D B-Natriuretic Peptide Total Protein Albumin 3.2 L Globulin Albumin/Globulin Ratio Triglycerides Cholesterol LDL Cholesterol, Calc HDL Cholesterol Cholesterol/HDL Ratio Vitamin B12 702 25-OH Vitamin D Total Beta-Hydroxybutyrate/Acetoacetate Procalcitonin TSH 4.71 PTH Intact Ur Collection Type Urine Color Urine Clarity Urine pH Ur Specific [place] Urine Protein Urine Glucose (UA) Urine Ketones Urine Blood Urine Nitrite Urine Bilirubin Urine Urobilinogen (Auto) Ur Leukocyte Esterase Urine RBC Urine WBC Ur Squamous Epith Cells Amorphous Crystals Urine Bacteria Ur Culture Indicated? U Random Total Protein Ur Random Sodium Ur Random Potassium Ur Random Chloride Ur Random Urea Nitrogn Random Vancomycin Urine Opiates Screen Urine Fentanyl Screen Acetaminophen Ur Barbiturates Screen U Amphetamin/Meth Scrn U Benzodiazepines Scrn U Cocaine Metab Screen U Marijuana (THC) Screen HCG (Qual) Blood Type Antibody Screen Blood Bank Wristband ID 09/12/25 09/12/25 09/12/25 00:34 04:10 04:29 WBC 4.2 D RBC 3.87 L Hgb 10.5 L D Hct 31.7 L MCV 82 MCH 27.1 MCHC 33.1 RDW Std Deviation 48.5 H Plt Count 256 Neut % (Auto) 81 H Lymph % (Auto) 15 [place] % (Auto) 4 Eos % (Auto) 0 Baso % (Auto) 0 Neut # (Auto) 3.4 Lymph # (Auto) 0.6 L [place] # (Auto) 0.2 Eos # (Auto) 0.0 Baso # (Auto) 0.0 Immature Gran # (Auto) 0.02 H Absolute Nucleated RBC 0.00 Immature Gran % 1 H Nucleated RBC % 0 PT INR APTT Puncture Site Right Radial Right Radial ABG pH 7.42 7.29 L D ABG pCO2 23 L 39 D ABG pO2 75 L 134 H D ABG HCO3 15 L 19 L ABG O2 Saturation 96 100 H ABG Base Excess -8 L -8 L VBG pH VBG pCO2 VBG pO2 VBG O2 Sat (Ly) VBG Base Excess FiO2 21 50 Sodium 140 144 Potassium 3.9 3.9 Chloride 108 H 109 H Carbon Dioxide 15.1 L 16.2 L Anion Gap 17 H 19 H BUN 76 H 61 H Creatinine 5.2 H* 5.3 H* Estim Creat Clear Calc 8.8 L 8.7 L eGFR 10 L* 10 L* BUN/Creatinine Ratio 15 12 Glucose 104 88 Calculated Osmolality 302 H 303 H Lactic Acid 2.4 H Calcium 7.9 L 7.8 L Corrected Calcium 8.7 8.7 Phosphorus 5.1 Magnesium 1.6 Total Bilirubin 0.5 0.4 AST 21 24 ALT < 7 L < 7 L Alkaline Phosphatase 60 60 Troponin I B-Natriuretic Peptide Total Protein 5.3 L 5.2 L Albumin 3.0 L 2.9 L Globulin 2.3 2.3 Albumin/Globulin Ratio 1.3 1.3 Triglycerides 149 Cholesterol 152 LDL Cholesterol, Calc 73 HDL Cholesterol 49 Cholesterol/HDL Ratio 3.1 L Vitamin B12 25-OH Vitamin D Total Beta-Hydroxybutyrate/Acetoacetate Procalcitonin TSH PTH Intact Ur Collection Type Urine Color Urine Clarity Urine pH Ur Specific [place] Urine Protein Urine Glucose (UA) Urine Ketones Urine Blood Urine Nitrite Urine Bilirubin Urine Urobilinogen (Auto) Ur Leukocyte Esterase Urine RBC Urine WBC Ur Squamous Epith Cells Amorphous Crystals Urine Bacteria Ur Culture Indicated? U Random Total Protein Ur Random Sodium Ur Random Potassium Ur Random Chloride Ur Random Urea Nitrogn Random Vancomycin < 3.0 Urine Opiates Screen Urine Fentanyl Screen Acetaminophen Ur Barbiturates Screen U Amphetamin/Meth Scrn U Benzodiazepines Scrn U Cocaine Metab Screen U Marijuana (THC) Screen HCG (Qual) Blood Type A Positive Antibody Screen NEGATIVE Blood Bank Wristband ID Yes 09/12/25 09/12/25 07:55 10:45 WBC RBC Hgb Hct MCV MCH MCHC RDW Std Deviation Plt Count Neut % (Auto) Lymph % (Auto) [place] % (Auto) Eos % (Auto) Baso % (Auto) Neut # (Auto) Lymph # (Auto) [place] # (Auto) Eos # (Auto) Baso # (Auto) Immature Gran # (Auto) Absolute Nucleated RBC Immature Gran % Nucleated RBC % PT INR APTT Puncture Site ABG pH ABG pCO2 ABG pO2 ABG HCO3 ABG O2 Saturation ABG Base Excess VBG pH 7.27 L VBG pCO2 44 VBG pO2 61 H VBG O2 Sat (Ly) 89 L VBG Base Excess -7 L FiO2 Sodium Potassium Chloride Carbon Dioxide Anion Gap BUN Creatinine Estim Creat Clear Calc eGFR BUN/Creatinine Ratio Glucose Calculated Osmolality Lactic Acid 1.0 1.2 Calcium Corrected Calcium Phosphorus Magnesium Total Bilirubin AST ALT Alkaline Phosphatase Troponin I B-Natriuretic Peptide 501 H* Total Protein Albumin Globulin Albumin/Globulin Ratio Triglycerides Cholesterol LDL Cholesterol, Calc HDL Cholesterol Cholesterol/HDL Ratio Vitamin B12 25-OH Vitamin D Total 9.4 Beta-Hydroxybutyrate/Acetoacetate 0.7 H Procalcitonin TSH PTH Intact 114.8 H Ur Collection Type Urine Color Urine Clarity Urine pH Ur Specific [place] Urine Protein Urine Glucose (UA) Urine Ketones Urine Blood Urine Nitrite Urine Bilirubin Urine Urobilinogen (Auto) Ur Leukocyte Esterase Urine RBC Urine WBC Ur Squamous Epith Cells Amorphous Crystals Urine Bacteria Ur Culture Indicated? U Random Total Protein Ur Random Sodium Ur Random Potassium Ur Random Chloride Ur Random Urea Nitrogn Random Vancomycin Urine Opiates Screen Urine Fentanyl Screen Acetaminophen Ur Barbiturates Screen U Amphetamin/Meth Scrn U Benzodiazepines Scrn U Cocaine Metab Screen U Marijuana (THC) Screen HCG (Qual) Blood Type Antibody Screen Blood Bank Wristband ID ABG Interpretation ABG results: 09/12/25 09/12/25 09/12/25 00:34 04:10 10:45 ABG pH 7.42 7.29 L D ABG pCO2 23 L 39 D ABG pO2 75 L 134 H D ABG HCO3 15 L 19 L ABG O2 Saturation 96 100 H ABG Base Excess -8 L -8 L VBG pH 7.27 L VBG pCO2 44 VBG pO2 61 H VBG Base Excess -7 L Quality Measures Quality Measures VTE prophylaxis (SCDS) Advance care planning discussed with:: child Assessment & Plan Assessment Current Active Medications: Generic Name Dose Route Start Last Admin Trade Name Freq PRN Reason Stop Dose Admin Acetaminophen 650 mg 09/11/25 15:37 Acetaminophen Supp 650 Mg Supp ID 10/11/25 15:36 Q6H PRN PAIN SCALE 1-3 (mild Atorvastatin Calcium 40 mg 09/11/25 21:00 09/11/25 21:13 Atorvastatin Calcium 20 Mg Tablet PO 10/11/25 20:59 Not Given HS SYBIL Heparin Sodium (Porcine) 2,600 unit 09/12/25 09:45 09/12/25 10:12 Heparin Sod Inj 1000 Unit/Ml Vial 10 Ml INDWELLCAT 09/26/25 09:44 2,600 unit PRN PRN Administration DIALYSIS Hydromorphone HCl 0.5 mg 09/12/25 01:05 Hydromorphone Inj 2 Mg/Ml Vial IVP 09/17/25 01:04 Q4HR PRN 4-10 moderate-sev pain Piperacillin Sod/Tazobactam 100 mls @ 200 mls/hr 09/11/25 22:00 09/12/25 05:41 Sod 2.25 gm/ Sodium Chloride IV 09/18/25 21:59 200 mls/hr Q8HR SYBIL Administration Protocol Norepinephrine/Dextrose 8 mg in 250 mls @ 5.741 mls/hr 09/12/25 01:12 09/12/25 06:00 Levophed In D5w 8mg/250ml IV 10/12/25 01:11 0.11 mcg/kg/min .Q24H PRN 12.63 mls/hr PER PROTOCOL Titration Protocol 0.05 MCG/KG/MIN Lactated Ringer's 1,000 mls @ 125 mls/hr 09/12/25 01:13 09/12/25 10:15 Lactated Ringers IV 10/12/25 01:12 Not Given .Q8H SYBIL Propofol 1,000 mg in 100 mls @ 1.837 mls/hr 09/12/25 03:24 09/12/25 06:00 Diprivan Ivpb IV 10/12/25 03:20 5 mcg/kg/min .Q24H PRN 1.837 mls/hr PER PROTOCOL Titration Protocol 5 MCG/KG/MIN Fentanyl Citrate 2,500 mcg in 250 mls @ 2.5 mls/hr 09/12/25 03:27 09/12/25 06:00 Sublimaze Inj 2,500 Mcg/250 Ml Bag IV 09/17/25 03:26 25 mcg/hr .Q24H PRN 2.5 mls/hr PER PROTOCOL Titration Protocol 25 MCG/HR Sodium Bicarbonate 88.23 meq/ 588.23 mls @ 100 mls/hr 09/12/25 04:51 09/12/25 05:39 Dextrose IV 10/12/25 04:50 100 mls/hr .Q5H53M SYBIL Administration Midazolam HCl 2 mg 09/12/25 07:53 09/12/25 08:20 Midazolam Inj 1 Mg/Ml Vial 2 Ml IVP 09/17/25 07:52 2 mg X1 PRN Administration Agitation/Excess Movement MRI Ondansetron HCl 4 mg 09/11/25 12:11 Ondansetron Inj 2 Mg/Ml Inj 2 Ml IVP 10/11/25 12:10 Q4HR PRN NAUSEA OR VOMITING Pantoprazole Sodium 40 mg 09/12/25 09:00 09/12/25 10:17 Pantoprazole Inj 40 Mg Vial IVP 10/12/25 08:59 40 mg BID SYBIL Administration Pharmacy Consult 1 each 09/12/25 09:00 Vancomycin Pharmacy To Dose 1 Each Each IV 10/12/25 08:59 QDAY PRN CONSULT Pharmacy Consult 1 each 09/12/25 02:39 Pharmacy Renal Dose Adjustment 1 Ea XX 10/12/25 02:38 PRN PRN CONSULT Thiamine HCl 100 mg 09/12/25 09:00 09/12/25 10:10 Thiamine Inj 100 Mg/Ml Vial 2 Ml IVP 10/12/25 08:59 100 mg QDAY SYBIL Administration Plan Patient is a 85-year-old bedbound male with past medical history of recurrent UTI with indwelling louise catheter secondary to BPH and B/L hydronephrosis, history of hypertension, and 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 Head CT was negative for acute stroke. CT abdomen was significant for ischemic bowel. Upgraded to ICU for ischemic bowel requiring emergent surgery. Neurology #Acute CVA of right occipital lobe, right thalamus, right posterior parietal lobe, and high right parietal lobe DDx: ischemic versus embolic Presented with acute left sided weakness. On exam, AO x1 (self only), AOx3 at baseline. Chronically bedbound. No known history of prior strokes. Diagnostic Test: Head CT and head and neck CT showed no acute pathology. MRI 09/12 showed multiple embolic type acute infarcts right occipital lobe, right thalamus, right posterior parietal lobe, high right parietal lobe. However note patient has no hx of afib, IV drug use, or endocarditis. Echo 06/2024 showed Normal LV size. Mild systolic dysfunction with mild global hypokinesis. Stage I diastolic dysfunction. Estimated LVEF 40-45%. Normal RV size and function. Mild AV sclerosis without stenosis. Trace TR. Treatment Plan: ? No antiplatelet therapy at this time given s/p surgery and increased risk of bleeding. Treatment Review: ? Will follow-up echo with bubble study #Acute encephalopathy DDx: Acute CVA, metabolic from sepsis due to purulent peritonitis with azotemia, metabolic acidosis, and GPC bacteremia Presented with acute left sided weakness. On exam, AO x1 (self only), AOx3 at baseline. Chronically bedbound. Diagnostic Test: Head CT and head and neck CT showed no acute pathology. CT abdomen was concerning for small bowel ischemia and dilated stomach MRI 09/12 showed multiple embolic type acute infarcts right occipital lobe, right thalamus, right posterior parietal lobe, high right parietal lobe S/p ex lap found to have purulent peritonitis with distended stomach. No perforation or bowel ischemia. Washout done. NG tube in place. Treatment Plan: ?NG tube on LIS ?Correcting acidosis - On mechanical ventilation -On Zosyn (09/12- ) and vancomycin renally dosed, (09/12/2025?) - Sedation holiday today, doing well off propofol and fentanyl, s/p Versed 2 mg x1 - No antiplatelet therapy as above Treatment Review: ? Will follow-up echo with bubble study Cardiovascular #Shock DDx: Septic in setting of purulent peritonitis, GPC UTI, and GPC bacteremia ?Patient presented with altered mental status and abdominal pain. No noted pain on inspiration and was saturating well on room air. He met 2/4 SIRS criteria with tachycardia and tachypnea with possible source of infection(pneumonia, UTI and ischemic bowel) ?Vitals showed blood pressure was soft during assessment and postsurgery MAP was below 65. - Bedside echo 09/12: Difficult to properly visualize complete cardiac windows however ventricles appeared hyperdynamic. No tamponade observed, low suspicion for cardiogenic or obstructive shock. - Cheetah 09/07 showed CI 2.3, CO 4.1, TPRI 2616, TPR 1452. SVI -5.7%, not fluid responsive. Diagnostic Test: ?CT abdomen was concerning for ischemic bowel -Urinalysis showed bacteria and pyuria with positive leukocyte esterase. Treatment Plan: ?S/p ex lap with washout ?On Zosyn (09/12- ) and vancomycin renally dosed, (09/12/2025?) ?Levophed as needed to maintain MAP above 65 ? GI consulted for concern of emhysematous gastritis, awaiting endoscopy on Protonix Treatment Review: ?Titrate down Levophed as tolerated #Hx of HFmrEF 40-45% - Not on any GDMT Diagnostic test -EKG showed sinus tachycardia with PVCs and prolonged QTc 490. - Echo 06/27/24 showed Normal LV size. Mild systolic dysfunction with mild global hypokinesis. Stage I diastolic dysfunction. Estimated LVEF 40-45%. Normal RV size and function. Mild AV sclerosis without stenosis. Trace TR. - S/p approx 5 L LR since admission - BNP 501 Treatment plan -Strict I&O's Treatment review - Follow-up with vitals - Continue to monitor for fluid overload - Follow up echo with bubble #NSTEMI Type 2 (resolved) Respiratory #Intubated and mechanically ventilated #For airway protection for surgery Diagnostic Test: ?Patient was taken for emergent surgery for concern of ischemic bowel. - Currently sedated requiring vent control: TV 480, RR 12, FiO2 0.4, PEEP 5 Treatment Plan: ?Continue with mechanical ventilation with lung protective measures Treatment Review: - Attempt sedation holiday today, if tolerates, initiate spontaneous breathing trials #Bilateral pleural effusions Diagnostic test ? CT abdomen pelvis showed bilateral pleural effusion with compression atalectesis. Treatment plan ? S/p 5L IV fluids - Continue IV antibiotic Zosyn and vancomycin Treatment review ?Follow-up with MRSA screen - Consider thoracentesis if patient is stable and continues to accumulate fluid GI #Purulent peritonitis status post abdominal washout, 09/12 #Dilated stomach status post NG tube LIS #Emphysematous gastritis DDx: History of indwelling Louise catheter, ascites seen on CT - Rapid response called 12AM 09/12 for severe abdominal pain. Patient was barely able to talk due to pain. He was grimacing with pain when belly was palpated. Abdomen was soft diffusely tender nondistended scaphoid. -Patient was unable to tell if he was passing gas. Diagnostic Test: ?CT abdomen/pelvis showed portal venous air in the liver. Ascites. Emphysematous gastritis with air in portal venous system. Markedly abnormal small bowel loops, thickened small bowel loop vargas and air in the bowel consistent with ischemic bowel - Ex lap with washout 09/12 performed by general surgeon Dr. Chahal, found to have purulent peritonitis with dilated stomach. Noted ABSENCE of ischemic bowel or small bowel perforation, perforated gastric or duodenal ulcer, perforated diverticulitis or a large bowel perforation. Anterior and posterior surface of stomach and duodenum inspected, no evidence of perforation noted. Treatment Plan: - On Zosyn (09/12- ) and vancomycin renally dosed, (09/12/2025?) - GI consulted for possible endoscopy to evaluate infection source if concern for emphysematous gastritis - NG tube on low intermittent suction - NPO after midnight - CT A/P with oral contrast ordered Treatment Review: - Follow up final blood cultures and urine culture - Follow up repeat CT results - Clear liquid diet once extubated - Endoscopy planned for tomorrow Renal #LIBRADO on CKD stage IV versus acute renal failure DDx: Hypoperfusion in setting of shock - Has history of CKD stage IV. Seen by Dr. Gunderson on admission last year but does not follow any portable track line marker outpatient. Diagnostic Test: - Creatinine on admission 5.7, baseline 1.9-2.0. Improving s/p fluids. - Renal US showed bilateral renal cortical thinning. Moderate bilateral renal scar formation ? Patient received approx 5 L in past 24 hours but had only urine output of 300 cc at bedside. Treatment Plan: - S/p bicarb drip ? Avoid nephrotoxic agents ? Renal dose medications ? Strict SERGIO's - No need for dialysis today per nephrology, reassess renal panel and ABG tomorrow - Nephrology consulted, appreciate recommendations Treatment Review: ?Follow-up with renal panel q4h - Continue to monitor urine output - Study in 2018 investigating benefit of IV sodium bicarb in treating patient with severe metabolic acidemia found that administration in ICU patients decreased patients' need for CRRT, note however there was no difference in 28 day mortality #Mixed acidosis #Anion gap metabolic acidosis #Non-anion gap metabolic acidosis (improving) DDx: Sepsis, lactic acidosis, acute kidney injury Diagnostic tests ? Anion gap 17 -> 16 - Bicarb 15 -> 18.2 ? ABGs showed pH 7.42, pCO2 23 with FiO2 21%. - Repeat ABG showed pH 7.29 pco2 39 -Arroyo formula: 30-34 mmHg Treatment plan ?Treating underlying sepsis - S/p bicarb drip Treatment review - Adjust ventilation settings based on ABG - Follow up renal panel 8PM - Study in 2018 investigating benefit of IV sodium bicarb in treating patient with severe metabolic acidemia found that administration in ICU patients decreased patients' need for CRRT, note however there was no difference in 28 day mortality #Hypocalcemia #Hyperphosphatemia (improving) #Hyperchloremia -In the setting of acute renal failure Diagnostic tests -Phos 7.3 -> 6.9 - Cl 106 -> 108 -> 109 - Ca 8.7 --> 8.2 - PTH high 114.8 Treatment plan -No active management -Nephrology consulted Treatment review - Follow up renal panel - Plan for dialysis tomorrow #Lactic acidosis (resolved) #Penile ulcer #Hx of indwelling urine catheter, chronic - Has history of bilateral hydronephrosis secondary to marked prostamegaly per chart review - Follows urologist Dr. Gloria, not ammendable to surgery due to failure to thrive Diagnostic work up: ?No hydronephrosis seen on renal ultrasound on 09/11 -On exam, patient has penile ulcer on ventral side of urethral opening, no pustular drainage or necrosis noted. Treatment plan -Continue with indwelling Louise catheter Treatment follow up: - Wound care for ulcer Heme #Normocytic anemia DDx: Decreased p.o. intake, DAJA in setting of failure to thrive Diagnostic Test: Hemoglobin 13.0 -> 10.5, likely hemodilutional Treatment Plan: ? S/p Type and screen 09/12 for surgery Treatment Review: - Consider ordering pRBCs if concern for active bleed - Consider outpatient anemia work up Endo #Failure to thrive #Low BMI #Starvation ketosis (resolved) DDx: Decreased P.o. intake ?Patient is bedbound and taken care of by [facility] nursing at home. Diagnostic Test: BMI 18.3. BHB 0.7 -> 0.4. Treatment Plan: - NPO - Refer to registered dietitian for low BMI Treatment Review: - Follow-up with blood sugar checks Q6 hourly ID #GPC bacteremia #GPC UTI #Hx recurrent UTIs with chronic indwelling Louise DDx: Purulent peritonitis, UTI Diagnostic Test: ?CT A/P significant for bowel ischemia and emphysematous gastritis. ?Urinalysis showed bacteriuria and pyuria with positive leukocyte esterase with underlying indwelling urine catheter. ?Previous urine cultures grew Pseudomonas sensitive to Zosyn. ?S/p ex lap showed purulent peritonitis and dilated stomach. No evidence of ischemic bowel. Washout performed. NG tube on LIS - Blood culture positive for GPC, resembling staph -Urine culture positive for GPC Treatment Plan: -IV Zosyn, (09/11/2025?) and vancomycin renally dosed (09/12/2025?) Treatment Review: - Follow-up with blood cultures, MRSA screen and urine cultures MSK #Osseous metastatic disease per Bone scan in 05/21/24 Per chart review in 2023, bone scan showed Increased isotope accumulation manubrium, right and left shoulders. increased uptake diffusely in the lumbar and thoracic spine as well as sacral segments and right ischium - No active intervention ICU health maintenance DVT prophylaxis: SCDs GI prophylaxis: Protonix 40 IV BID Diet: NPO Louise: Indwelling Louise catheter Lines: PIV, Right IJ Triple flow catheter, right femoral arterial line Drips: Levophed , antibiotics, Protonix. Off fentanyl and propofol. Vent: AC/VC CODE STATUS: Full code Reason of hospitalization: Patient is upgraded to ICU for management of concern for ischemic bowel but was found to have purulent perotinitis s/p abd washout & dilated stomach s/p NG LIS. Patient plan of care was discussed with the senior resident, Dr. Dickinson, and attending physician, Dr. Saldivar. Supriya Hood DO, PGY-1
--- NOTE | 2025-09-12 11:52 | PD.RESPROC ---
PROCEDURES: Procedure Date / Time 09/12/25 1152 Central Line Placement Right IJ: Indication(s): shock and poor, or inadequate peripheral venous access Informed consent obtained: obtained from surrogate decision maker Time out done, and the following verified: correct patient, side and site, procedure, patient position and implants and/or equipment (none) Patient placed on monitor/pulse ox: Yes Hand Hygiene: soap & water and alcohol-based hand rub Max Sterile Barrier Techniques used: cap, mask, sterile gown, sterile gloves and sterile full body drape Central line prep: Chlorhexidine scrub and sterile drapes applied Local anesthesia used: other anesthetic Ultrasound used for placement: Yes Sterile Technique if Ultrasound used, including sterile gel: yes Central line lumen inserted: triple Post procedure: sutured in place, good blood return, all ports aspirated, flushed, capped and sterile dressing applied Post procedure x-ray: tip of catheter in good position and no pneumothorax seen Patient tolerated procedure: well and no complications EBL(ml): 10 Complications: none Procedure comment: PROCEDURE SUMMARY: The [facility] [place] Insertion Practices form was completed by an independent observer starting with the first handwash prior to starting sterile technique. A time out was performed. My hands were washed immediately prior to the procedure. I wore a surgical cap, mask with protective eyewear, full gown and sterile gloves throughout the procedure. The patient was placed in Trendelenburg position. LEFT / RIGHT chest region was prepped using chlorhexidine scrub and draped in sterile fashion using a full drape and sterile probe cover and sterile gel employed. The medial and lateral heads of the sternocleidomastoid muscle were identified as was the carotid pulse. The Right Internal Jugular vein was identified using the ultrasound. Patient was previously on proprofol and fentanyl but was discontinued prior to procedure, given additional Versed 2mg IVP. Using real-time out of plane guidance, the introducer needle was inserted into the Right Internal Jugular vein under direct ultrasound visualization. Venous blood was withdrawn. The syringe was removed and a guidewire was advanced into the introducer needle. The guidewire was visualized in the Right Internal Jugular Vein by ultrasound. A small incision was made at the skin surface with a scalpel and the introducer needle was exchanged for a dilator over the guidewire. Initial dilator was removed and second larger dilator was introduced over guide wire. After appropriate dilation was obtained, the dilator was exchanged over the wire for a Triple flow central venous catheter. The wire was removed and the catheter was sutured in place. A sterile sorbaview shield was placed over the catheter at the insertion site. The patient tolerated the procedure without any hemodynamic compromise. At time of procedure completion, all ports aspirated and flushed properly. Post-procedure chest x-ray is pending at this time. Estimated blood loss is 10 cc. Patient plan of care was discussed with the attending physician, Dr. Saldivar. Supriya Hood PGY-1 Attending Note I was present for and assited with all velez aspects of the procedure
[2025-09-12 11:56] LABS: Albumin, Serum 2.4 gm/dL (3.4-4.8); Anion Gap 18 (7-16); BUN/Creatinine Ratio 20 Ratio (12-20); Blood Urea Nitrogen 94 mg/dL (9-23); Calcium 7.2 mg/dL (8.3-10.6); Calcium (Corrected) 8.5 mg/dL (8.5-10.1); Carbon Dioxide 17.4 mMol/L (20.0-31.0); Chloride 109 mMol/L (98-107); Creatinine (Component) 4.8 mg/dL (0.6-1.3); Estimated Creatinine Clearance 9.6 mL/min (>60); Glucose 162 mg/dL (74-106); Osmolality,Calculated 319 (275-295); Phosphorous 7.3 mg/dL (2.4-5.1); Potassium 4.2 mMol/L (3.4-5.1); Sodium 144 mMol/L (136-145); eGFR 11 See Note
--- NOTE | 2025-09-12 12:27 | PD.INTPROC ---
PROCEDURES: Procedure Date / Time 09/12/25 1227 Arterial Line Indication(s): frequent arterial line sampling Informed consent obtained: obtained from surrogate decision maker Time out done, and the following verified: correct patient, side and site, procedure and patient position Technique used: guide wire technique Post-Procedure: line sutured into place and dry sterile dressing placed Patient tolerated procedure: well and no complications EBL(ml): 5 Complications: none Site: right and femoral
[2025-09-12 12:43] LABS: Base Excess -5 (-3-3); HCO3 20 mEq/L (20-26); O2 Saturation 100 % (91-98); PCO2 37 mmHg (32.0-48.0); PO2 164 mmHg (83-108); pH, Arterial 7.35 (7.35-7.45)
[2025-09-12 12:44] LABS: Allen Test Not Performed; Inspired Oxygen, FIO2 40 %; Puncture Site Arterial Line
--- NOTE | 2025-09-12 12:52 | ESCONSULT_ITS ---
History of Present Illness Data of Consult Consult date: 09/12/25 Requesting Physician: Wen Saldivar MD Primary Care Provider: Physician No Primary/Family Consult Narrative Reason for consult: LIBRADO History of present illness: Chart review done as patient currently on ventilator. Mr. Whiting is a 85-year-old gentleman with past medical history significant for enlarged prostate, gait imbalance and is wheelchair-bound, hypotension on midodrine presented to the emergency department with altered mental status left-sided flaccid paralysis. Stroke alert was called and teleneurology was consulted. Patient also noted to have coffee-ground emesis and diagnosis of GI bleed was entertained. During hospital course patient developed ischemic colitis and transferred to ICU. Abdomen pelvic CT showed findings consistent with pneumatosis intestinalis along with emphysematous gastritis and air in the portal system. surgical consultation was requested. patient was taken to the OR and had exploratory laparotomy, abdominal washout for peritonitis. Patient came back to ICU intubated on pressors. IV antibiotics initiated. IV fluids were given. MRI of the brain which showed multiple right-sided embolic CVAs which appeared acute . Urine output started to trend down and BUN and creatinine elevated and nephrology consultation was requested. Patient currently seen in ICU. Team at bedside. In the emergency department blood pressure 128/75, heart rate 130. CBC normal, coags normal, bicarbonate 15.6, anion gap 19, BUN 68, creatinine 5.7, lactic acid 3.1, troponin 0.9, B12 702, Pro-Tyson 57.5, TSH 4.71, urinalysis shows UTI. Urine drug screen negative. Chest x-ray negative for pneumonia. Head CT negative. CTA showed arterial stenosis. EKG showed sinus tach. Patient admitted with sepsis. cc:: cc: Wen Saldivar MD Review of Systems Review of Systems ROS Unobtainable: due to endotracheal tube Past Medical History Past Medical History NEUROLOGIC: Negative Neurological Disorders, Cerebrovascular Accident, Transient Ischemic Attacks (TIA), Dementia, Alzheimer's Disease, Parkinson's Disease, Brain Tumor, Meningitis, Seizures, Epilepsy, Multiple Sclerosis, Cerebral Palsy, Amyotrophic Lateral Sclerosis (ALS/Jaida Gehrig's), Guillain-[place] Syndrome, Spina Bifida, Paralysis, Peripheral Neuropathy, Sutton's Palsy, Subdural Hematoma, Migraine, Head Trauma, Spinal Cord Injury or Traumatic Brain Injury CARDIAC: Negative Cardiac Disorders, Myocardial Infarction, Cardiac Arrhythmia, Atrial Fibrillation, Angina, Heart Murmur, Coronary Artery Disease, Atherosclerotic Heart Disease, Peripheral Vascular Disease, Hypercholesterolemia, Aneurysm, Congestive Heart Failure, Congenital Heart Disease, Valvular Heart Disease, Rheumatic Fever, Cardiomyopathy, Edema, Pericarditis, Cellulitis, Deep Vein Thrombosis, Hypertension, Hypotension or Varicose Veins RESPIRATORY: Negative Respiratory Disorders, Chronic Obstructive Pulmonary Disease (COPD), Asthma, Bronchitis, Emphysema, Pneumonia, Pulmonary Fibrosis, Cystic Fibrosis, Tuberculosis, Pulmonary Embolism, Pulmonary Edema or Sleep Apnea GASTROINTESTINAL: Negative Gastrointestinal Disorders, Hepatitis, Cirrhosis, Pancreatitis, Celiac Disease, Gall Bladder Disease, Gastrointestinal Bleed, Esophageal Varices, Plaza's Esophagus, Colitis, Ulcerative Colitis, Diverticulitis, Diverticulosis, Ulcer, Colorectal Cancer, Irritable Bowel, Crohn's Disease, Obstructive Bowel, Hiatal Hernia, Hemorrhoids, Gastroesophageal Reflux Disease or Obesity GENITOURINARY: Positive Chronic Kidney Disease; Negative Genitourinary Disorders, Renal Disease, Kidney Stones, Polycystic Kidney Disease, Neurogenic Bladder, Inguinal Hernia, Dialysis, Prostate Cancer or Benign Prostatic Hyperplasia REPRODUCTIVE: Negative Breast Cancer, Fibroids, Genital Herpes, Gonorrhea, Syphilis or Testicular Cancer MUSCULOSKELETAL: Negative Musculoskeletal Disorders, Muscular Dystrophy, Myasthenia Gravis, Marfan's Syndrome, Bone Cancer, Arthritis, Rheumatoid Arthritis, Osteoporosis, Degenerative Disk Disease, Gout, Scoliosis, Carpal Tunnel Syndrome, Fibromyalgia, Fractures, Degenerative Joint Disease, Osteomyelitis or Poliovirus ENT: Negative Cataracts, Glaucoma, Blind, Retinal Detachment, Macular Degeneration, Ear Infection, Deafness, Head Trauma or Eye Prosthesis ENDOCRINE: Negative Endocrine Disorders, Diabetes Mellitus Type 1, Diabetes Mellitus Type 2, Hypoglycemia, Morven's Syndrome, Virgil's Disease, Hyperthyroidism, Hypothyroidism, Parathyroid Disease, Pituitary Disease, Systemic Lupus Erythematosus, Syndrome of Inappropriate Antidiuretic Hormone (SIADH), Adrenal Disease or Graves' Disease HEMATOLOGIC: Negative Blood Disorders, Anemia, Leukemia, Hemophilia, Thalassemia, Sickle Cell Disease or Clotting Problems PSYCHO/SOCIAL: Negative Psychiatric Problems, Schizophrenia, Recreational Drug Use, Bipolar Disorder, Depression, Anxiety, Behavior Problems, Self-Mutilation, Attention Deficit Disorder, Attention Deficit Hyperactivity Disorder, Depression, Post Traumatic Stress Disorder or Eating Disorder OTHER HISTORY: Negative Hospitalization, Autoimmune Disease, Down Syndrome, Autism, Developmental Delay, Shingles, Falls, Blood Transfusions, Blood Transfusion Reaction, Anesthesia Reactions, Organ Transplant, Chemotherapy, Radiation Therapy, Hyperbaric Therapy, MRSA, VRSA, Vancomycin-Resistant Enterococci, Human Immunodeficiency Virus (HIV), Chicken Pox, Measles, Mumps, Rubella ([place]and[place] Measles), Pertussis, Clostridium Difficile, Cancer, Breast Cancer, Cervical Cancer, Colorectal Cancer, Lung Cancer, Ovarian Cancer, Prostate Cancer or Testicular Cancer Family History FAMILY HISTORY: Negative Family Respiratory Disorders or Family Cardiac Disorders Surgical History SURGICAL: Negative Cardiac Surgery, Open Heart Surgery, Coronary Artery Bypass Graft, Valve Replacement, Vascular Surgery, Coronary Stent, Cardiac Catheterization, Pacemaker, Angiogram, Auto Implanted Cardiovert Defib, Carotid Endarterectomy, Endocrine Surgery, Thyroidectomy, Ear Surgery, Tympanostomy Tube, Eye Surgery, Nose Surgery, Oral Surgery, Tonsillectomy, Adenoidectomy, Cochlear Implant, Corneal Transplant, Throat Surgery, Abdominal Surgery, Tracheostomy, Gastric Bypass Surgery, Gastrostomy, Bowel Surgery, Nephrectomy, Transurethral Resection, Joint Replacement, Amputation, Open Reduction Internal Fixation, Arthroscopy, Neurologic Surgery, Brain Shunt, Mastectomy, Lumpectomy, Hysterectomy, Tubal Ligation, Section, Vasectomy or Organ Transplant Social History SMOKING STATUS: Never smoker SECOND HAND EXPOSURE: No Meds Home Medications and Allergies Home Medications ?Medication ?Instructions ?Recorded ?Confirmed ?Type midodrine 10 mg tablet 10 mg PO BID 12/25/24 History Allergies Allergy/AdvReac Type Severity Reaction Status Date / Time No Known Allergies Allergy Verified 12/25/24 10:59 Exam Vital Signs Temp Pulse Resp BP Pulse Ox O2 Del Method FiO2 36.3 C 99 14 89/62 L 100 Room Air 40 09/12/25 12:01 09/12/25 12:45 09/12/25 12:45 09/12/25 12:45 09/12/25 12:45 09/12/25 00:00 09/12/25 12:00 Narrative Exam GENERAL APPEARANCE: Patient currently seen in ICU. On vent. CARDIOVASCULAR: Heart regular, no murmurs LUNGS/CHEST: Chest clear to auscultation. No rales, rhonchi, wheezing ABDOMEN: Status post bowel surgery EXTREMITIES: No edema, clubbing or cyanosis. SKIN: Skin exam normal without any rashes MUSCULOSKELETAL: In bed NEUROLOGICAL : Intubated, sedated Results Labs 09/13/25 04:30 09/13/25 04:30 Labs: Short CBC 09/12/25 Range/Units 04:29 WBC 4.2 D (3.8-10.6) Thou/mm3 Hgb 10.5 L D (13.5-16.0) g/dL Hct 31.7 L (41.0-53.0) % Plt Count 256 (140-440) Thou/mm3 BMP 09/11/25 09/11/25 09/12/25 13:16 18:32 00:34 Sodium 139 139 140 Potassium 3.4 3.8 3.9 Chloride 104 106 108 H Carbon Dioxide 15.6 L 15.2 L 15.1 L BUN 68 H 66 H 76 H Creatinine 5.7 H* 5.0 H* D 5.2 H* Glucose 116 H 120 H 104 Calcium 8.4 8.6 7.9 L 09/12/25 09/12/25 04:29 10:45 Sodium 144 144 Potassium 3.9 4.2 Chloride 109 H 109 H Carbon Dioxide 16.2 L 17.4 L BUN 61 H 94 H Creatinine 5.3 H* 4.8 H* D Glucose 88 162 H D Calcium 7.8 L 7.2 L Cardiac Enzymes 09/11/25 09/11/25 Range/Units 13:16 18:32 Troponin I 0.972 H* 0.764 H* D (0.0-0.045) ng/mL Liver Function 09/11/25 09/11/25 09/12/25 Range/Units 13:16 18:32 00:34 Total Bilirubin 0.5 0.5 (0.3-1.2) mg/dL AST 24 21 (0-34) U/L ALT < 7 L < 7 L (10-49) U/L Alkaline Phosphatase 72 60 (46-116) U/L Albumin 3.3 L 3.2 L 3.0 L (3.4-4.8) gm/dL 09/12/25 09/12/25 Range/Units 04:29 10:45 Total Bilirubin 0.4 (0.3-1.2) mg/dL AST 24 (0-34) U/L ALT < 7 L (10-49) U/L Alkaline Phosphatase 60 (46-116) U/L Albumin 2.9 L 2.4 L D (3.4-4.8) gm/dL Urine 09/11/25 Range/Units 13:10 Urine Color [place] A (Lt Yel-Yel) Urine Clarity Cloudy A (Clear/Hazy) Urine pH 7.0 (5.0-7.0) Ur Specific [place] 1.026 (1.001-1.035) Urine Protein 3+ A (Neg - Trace) Urine Glucose (UA) Negative (Negative) ABG Interpretation ABG results: 09/12/25 09/12/25 09/12/25 00:34 04:10 10:45 ABG pH 7.42 7.29 L D ABG pCO2 23 L 39 D ABG pO2 75 L 134 H D ABG HCO3 15 L 19 L ABG O2 Saturation 96 100 H ABG Base Excess -8 L -8 L VBG pH 7.27 L VBG pCO2 44 VBG pO2 61 H VBG Base Excess -7 L 09/12/25 12:37 ABG pH 7.35 ABG pCO2 37 ABG pO2 164 H D ABG HCO3 20 ABG O2 Saturation 100 H ABG Base Excess -5 L VBG pH VBG pCO2 VBG pO2 VBG Base Excess Assessment & Plan Additional Assessment & Plan Additional Plan: Mr. Alcantar is a 85-year-old gentleman with BPH, bilateral hydronephrosis, hypertension, congestive heart failure with reduced ejection fraction presented to the hospital with altered mental status acute left-sided weakness and workup showed that he has sepsis and a left CVA. Renal consultation requested for LIBRADO. # Acute renal failure secondary to prerenal azotemia from underlying sepsis/hypotension # Metabolic acidosis from LIBRADO/sepsis. # Electrolyte imbalance agree with IV fluids. Bicarbonate IV. Patient could be going into ischemic ATN. Urine output still remains low. Will monitor closely. If no improvement plan for dialysis tomorrow. #Acute CVA of right occipital lobe, right thalamus, right posterior parietal lobe, and high right parietal lobe Echocardiogram ordered #Shock secondary to purulent peritonitis with GPC bacteremia. On broad-spectrum antibiotics. CT scan showed emphysematous gastritis/air in the bile ducts. Repeat CT was ordered by ICU team. Patient had emergency laparotomy last night with abdominal washout. #Hx of HFmrEF 40-45% Repeat echo was pending #Purulent peritonitis status post abdominal washout, 09/12 #Emphysematous gastritis -repeat CT was ordered etiology still remains unclear.. Care discussed with Dr. Saldivar Thank you Wen for allowing me to participate in the care of Mr. Alcantar
--- NOTE | 2025-09-12 13:23 | PCS.ST ---
Currently intubated. ST Swallow Evaluation once extubated and appropriate for PO trials.
[2025-09-12 13:45] LABS: Lactate (Lactic Acid) 1.0 mMol/L (0.4-2.0)
[2025-09-12 13:47] LABS: Hematocrit 28.1 % (41.0-53.0); Hemoglobin 9.6 g/dL (13.5-16.0)
[2025-09-12 13:51] LABS: Beta Hydroxybutyrate 0.4 mmol/L (<0.6)
--- NOTE | 2025-09-12 14:10 | XR_ITS ---
Examination: CT abdomen and pelvis without contrast. Coronal 3-D reconstructions. Sagittal 2-D reconstructions. Date and time of exam: September 12, 2025, 1905 hours, comparison September 11, 2025 INDICATIONS: Abdominal pain and distention this week, abnormal small bowel loops with wall thickening and air in the bowel wall suspicious for ischemic bowel CTDI: vol (mGy): 15 DLP: (mGycm): 914 Technique: Axial images of the abdomen have been obtained, 3 mm slice thickness Intravenous contrast material has not been administered. Low dose protocols were performed. One or more of the following dose reduction techniques were used; automated exposure control, adjustment of the mA and/or KV according to patient size, use of iterative reconstruction technique. Findings: Extensive pneumoperitoneum Bibasilar pneumonia with small to moderate bilateral pleural effusions Small pericardial effusion with mild enlargement cardiac contour Contrast in the gallbladder No focal liver or splenic lesions Mild ascites or free fluid in the abdomen No pancreatic mass Renal scarring Multiple abnormal distended small bowel loops with wall thickening Urinary bladder contracted around Mayo catheter IMPRESSION: Extensive pneumoperitoneum Mild free fluid throughout the abdomen and pelvis Abnormal small bowel remains, fluid distended with wall thickening
[2025-09-12 14:17] LABS: Albumin, Serum 2.7 gm/dL (3.4-4.8); Anion Gap 16 (7-16); BUN/Creatinine Ratio 16 Ratio (12-20); Blood Urea Nitrogen 82 mg/dL (9-23); Calcium 7.2 mg/dL (8.3-10.6); Calcium (Corrected) 8.2 mg/dL (8.5-10.1); Carbon Dioxide 18.2 mMol/L (20.0-31.0); Chloride 109 mMol/L (98-107); Creatinine (Component) 5.1 mg/dL (0.6-1.3); Estimated Creatinine Clearance 9.0 mL/min (>60); Glucose 142 mg/dL (74-106); Osmolality,Calculated 311 (275-295); Phosphorous 6.9 mg/dL (2.4-5.1); Potassium 3.7 mMol/L (3.4-5.1); Sodium 143 mMol/L (136-145); eGFR 10 See Note
--- NOTE | 2025-09-12 14:17 | PD.INTPROG ---
Documentation for date of: 09/12/25 Subjective Subjective Interval history: This is an 85-year-old male who was admitted admitted yesterday for altered mental status. Initially workup was for a stroke however patient also received a abdomen pelvic CT. On the abdomen pelvic CT there was concern for pneumatosis intestinalis along with emphysematous gastritis and air in the portal system. Surgery was contacted and the patient was taken to the OR overnight. He was returned to the ICU intubated and on low-dose vasopressors. This morning he went for a MRI of the brain which showed multiple right-sided embolic CVAs which appeared acute in nature. Blood cultures are positive for GPC's in his urine is also positive for GPC's. He is on broad-spectrum antibiotics at this point in time. He has had minimal urinary output and when sedation vacation given the patient moves both lower extremities however did not follow commands. Critical Care Note Critical care time (min.): 50 Exam Vital Signs Temp Pulse Resp BP Pulse Ox O2 Del Method FiO2 97.4 F 99 13 113/62 100 Room Air 40 09/12/25 12:01 09/12/25 14:03 09/12/25 14:00 09/12/25 14:03 09/12/25 14:03 09/12/25 00:00 09/12/25 14:03 Narrative Exam General-intubated, sedated, thin cachectic in appearance HEENT-normocephalic, atraumatic, sclera anicteric, oral mucosa is dry with what appears to be dark brown dried secretions on his tongue, ET tube in place Chest-lungs clear to auscultation bilaterally, heart regular rhythmic, no bruits or murmurs auscultated at time of exam, no increased work of breathing Abdomen-soft, midline surgical site appears clear without any erythema or discharge noted, flakito in place Extremities-ischemic changes of bilateral toes and feet are cold to touch, pulses faint, muscle wasting noted in all 4 extremities Drips Levophed Fentanyl propofol Bicarb Vent AC/VC Physical Exam Completion Physical Exam Complete?: Yes Objective - Cna Ltc Labs 09/13/25 04:30 09/13/25 04:30 Labs: Laboratory Results - last 24 hr 09/11/25 09/11/25 09/11/25 13:10 13:16 15:22 WBC RBC Hgb Hct MCV MCH MCHC RDW Std Deviation Plt Count Neut % (Auto) Lymph % (Auto) [place] % (Auto) Eos % (Auto) Baso % (Auto) Neut # (Auto) Lymph # (Auto) [place] # (Auto) Eos # (Auto) Baso # (Auto) Immature Gran # (Auto) Absolute Nucleated RBC Immature Gran % Nucleated RBC % Puncture Site ABG pH ABG pCO2 ABG pO2 ABG HCO3 ABG O2 Saturation ABG Base Excess VBG pH VBG pCO2 VBG pO2 VBG O2 Sat (Ly) VBG Base Excess FiO2 Sodium Potassium Chloride Carbon Dioxide Anion Gap BUN Creatinine Estim Creat Clear Calc eGFR BUN/Creatinine Ratio Glucose Calculated Osmolality Lactic Acid 3.1 H Calcium Corrected Calcium Phosphorus Magnesium Total Bilirubin AST ALT Alkaline Phosphatase Troponin I B-Natriuretic Peptide Total Protein Albumin Globulin Albumin/Globulin Ratio Triglycerides Cholesterol LDL Cholesterol, Calc HDL Cholesterol Cholesterol/HDL Ratio Vitamin B12 702 25-OH Vitamin D Total Beta-Hydroxybutyrate/Acetoacetate TSH 4.71 PTH Intact U Random Total Protein 192 H Ur Random Sodium 17.5 L Ur Random Potassium 74 H Ur Random Chloride < 20.0 L Ur Random Urea Nitrogn 319.0 L Random Vancomycin Acetaminophen 2.1 L Blood Type Antibody Screen Blood Bank Wristband ID 09/11/25 09/11/25 09/12/25 18:32 21:55 00:34 WBC RBC Hgb Hct MCV MCH MCHC RDW Std Deviation Plt Count Neut % (Auto) Lymph % (Auto) [place] % (Auto) Eos % (Auto) Baso % (Auto) Neut # (Auto) Lymph # (Auto) [place] # (Auto) Eos # (Auto) Baso # (Auto) Immature Gran # (Auto) Absolute Nucleated RBC Immature Gran % Nucleated RBC % Puncture Site Right Radial ABG pH 7.42 ABG pCO2 23 L ABG pO2 75 L ABG HCO3 15 L ABG O2 Saturation 96 ABG Base Excess -8 L VBG pH VBG pCO2 VBG pO2 VBG O2 Sat (Ly) VBG Base Excess FiO2 21 Sodium 139 140 Potassium 3.8 3.9 Chloride 106 108 H Carbon Dioxide 15.2 L 15.1 L Anion Gap 18 H 17 H BUN 66 H 76 H Creatinine 5.0 H* D 5.2 H* Estim Creat Clear Calc 9.2 L 8.8 L eGFR 11 L* 10 L* BUN/Creatinine Ratio 13 15 Glucose 120 H 104 Calculated Osmolality 297 H 302 H Lactic Acid 3.4 H 2.3 H Calcium 8.6 7.9 L Corrected Calcium 9.2 8.7 Phosphorus 5.8 H Magnesium Total Bilirubin 0.5 AST 21 ALT < 7 L Alkaline Phosphatase 60 Troponin I 0.764 H* D B-Natriuretic Peptide Total Protein 5.3 L Albumin 3.2 L 3.0 L Globulin 2.3 Albumin/Globulin Ratio 1.3 Triglycerides Cholesterol LDL Cholesterol, Calc HDL Cholesterol Cholesterol/HDL Ratio Vitamin B12 25-OH Vitamin D Total Beta-Hydroxybutyrate/Acetoacetate TSH PTH Intact U Random Total Protein Ur Random Sodium Ur Random Potassium Ur Random Chloride Ur Random Urea Nitrogn Random Vancomycin Acetaminophen Blood Type Antibody Screen Blood Bank Wristband ID 09/12/25 09/12/25 09/12/25 04:10 04:29 07:55 WBC 4.2 D RBC 3.87 L Hgb 10.5 L D Hct 31.7 L MCV 82 MCH 27.1 MCHC 33.1 RDW Std Deviation 48.5 H Plt Count 256 Neut % (Auto) 81 H Lymph % (Auto) 15 [place] % (Auto) 4 Eos % (Auto) 0 Baso % (Auto) 0 Neut # (Auto) 3.4 Lymph # (Auto) 0.6 L [place] # (Auto) 0.2 Eos # (Auto) 0.0 Baso # (Auto) 0.0 Immature Gran # (Auto) 0.02 H Absolute Nucleated RBC 0.00 Immature Gran % 1 H Nucleated RBC % 0 Puncture Site Right Radial ABG pH 7.29 L D ABG pCO2 39 D ABG pO2 134 H D ABG HCO3 19 L ABG O2 Saturation 100 H ABG Base Excess -8 L VBG pH VBG pCO2 VBG pO2 VBG O2 Sat (Ly) VBG Base Excess FiO2 50 Sodium 144 Potassium 3.9 Chloride 109 H Carbon Dioxide 16.2 L Anion Gap 19 H BUN 61 H Creatinine 5.3 H* Estim Creat Clear Calc 8.7 L eGFR 10 L* BUN/Creatinine Ratio 12 Glucose 88 Calculated Osmolality 303 H Lactic Acid 2.4 H 1.0 Calcium 7.8 L Corrected Calcium 8.7 Phosphorus 5.1 Magnesium 1.6 Total Bilirubin 0.4 AST 24 ALT < 7 L Alkaline Phosphatase 60 Troponin I B-Natriuretic Peptide 501 H* Total Protein 5.2 L Albumin 2.9 L Globulin 2.3 Albumin/Globulin Ratio 1.3 Triglycerides 149 Cholesterol 152 LDL Cholesterol, Calc 73 HDL Cholesterol 49 Cholesterol/HDL Ratio 3.1 L Vitamin B12 25-OH Vitamin D Total 9.4 Beta-Hydroxybutyrate/Acetoacetate 0.7 H TSH PTH Intact 114.8 H U Random Total Protein Ur Random Sodium Ur Random Potassium Ur Random Chloride Ur Random Urea Nitrogn Random Vancomycin < 3.0 Acetaminophen Blood Type A Positive Antibody Screen NEGATIVE Blood Bank Wristband ID Yes 09/12/25 09/12/25 09/12/25 10:45 12:37 13:35 WBC RBC Hgb 9.6 L Hct 28.1 L MCV MCH MCHC RDW Std Deviation Plt Count Neut % (Auto) Lymph % (Auto) [place] % (Auto) Eos % (Auto) Baso % (Auto) Neut # (Auto) Lymph # (Auto) [place] # (Auto) Eos # (Auto) Baso # (Auto) Immature Gran # (Auto) Absolute Nucleated RBC Immature Gran % Nucleated RBC % Puncture Site Arterial Line ABG pH 7.35 ABG pCO2 37 ABG pO2 164 H D ABG HCO3 20 ABG O2 Saturation 100 H ABG Base Excess -5 L VBG pH 7.27 L VBG pCO2 44 VBG pO2 61 H VBG O2 Sat (Ly) 89 L VBG Base Excess -7 L FiO2 40 Sodium 144 Potassium 4.2 Chloride 109 H Carbon Dioxide 17.4 L Anion Gap 18 H BUN 94 H Creatinine 4.8 H* D Estim Creat Clear Calc 9.6 L eGFR 11 L* BUN/Creatinine Ratio 20 Glucose 162 H D Calculated Osmolality 319 H Lactic Acid 1.2 Calcium 7.2 L Corrected Calcium 8.5 Phosphorus 7.3 H Magnesium Total Bilirubin AST ALT Alkaline Phosphatase Troponin I B-Natriuretic Peptide Total Protein Albumin 2.4 L D Globulin Albumin/Globulin Ratio Triglycerides Cholesterol LDL Cholesterol, Calc HDL Cholesterol Cholesterol/HDL Ratio Vitamin B12 25-OH Vitamin D Total Beta-Hydroxybutyrate/Acetoacetate 0.4 TSH PTH Intact U Random Total Protein Ur Random Sodium Ur Random Potassium Ur Random Chloride Ur Random Urea Nitrogn Random Vancomycin Acetaminophen Blood Type Antibody Screen Blood Bank Wristband ID Assessment & Plan Additional Assessment Additional Assessment: In summary this is an 85-year-old male admitted to the ICU status post ex lap with septic shock 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 MRI shows multiple right-sided embolic CVAs. Echocardiogram is currently pending CV Shock-likely distributive in nature and related to sepsis. Bedside echo did not show any large pericardial effusion, windows were poor however his LV appeared to be hyperdynamic though there was some question of hypokinesia of the septum. No evidence of cardiogenic etiology for his current shock state, no large tension pneumothorax or pericardial effusion nor is PE suspected for obstructive etiology. Patient has received 4 to 5 L of fluids for volume resuscitation. Will obtain cheetah for additional hemodynamics and check an SVO 2. Titrate Levophed for MAP 65 and continue with antibiotics at this time. Central line will be placed along with an A-line as the patient is difficult stick for follow-up ABGs. HFrEF-prior echo from a year ago shows an EF of 40 to 45%, will obtain repeat echocardiogram Resp Acute hypoxic respiratory failure-patient is currently intubated, will wean as able, follow-up on ABGs and chest x-ray Atelectasis versus pneumonia-changes seen on imaging however there is no report of any respiratory symptoms prior to the patient's arrival. He will continue on his antibiotic for his current sepsis and bacteremia. Renal Acute kidney injury-patient has minimal urinary output, will place to try flow for possible need of dialysis in the future. Have discussed with nephrology. Mayo is in place, avoid nephrotoxins as able, no current indication for emergent dialysis. Hematuria-patient has a chronic indwelling Mayo however this does need to be further evaluated Anion gap metabolic acidosis-patient's lactate has normalized as has his beta hydroxy, his current anion gap is likely secondary to his acute renal failure. UTI-urine is growing GPC's for which she is on Vanco and Zosyn awaiting further identification GI GI prophylaxis-PPI Emphysematous gastritis/pneumatosis intestinalis -patient is status post ex lap with no areas of necrosis or ischemia found, surgical recommendations appreciated Hypoalbuminemia-patient is very cachectic and this is likely in the setting of malnutrition Endo Stable Heme Anemia-patient has had a drop in his H&H however this is likely both dilutional given the 4 to 5 L of fluid that he has received as well as some blood loss during surgery. ID Sepsis and bacteremia-currently on Vanco and Zosyn, follow-up with results of blood culture and urine cultures Case discussed with ICU team, surgery and nephrology Labs, imaging and records reviewed Approximately 50cc min required for evaluation, exam, review, intervention and discussion and formulation of plan of care for this critically ill patient with septic shock Provider Notation Provider Notation: Although this document has been carefully reviewed, there may still be some phonetic and other typographical errors. These errors are purely grammatical due to imperfections in the software program and should not be construed in any way to compromise the substance of the patient's medical care during this visit. Thank you for the opportunity and privilege in assisting you with this patient's care and management.
--- NOTE | 2025-09-12 19:54 | PC.RT ---
Patient transported to CT on transport ventilator. no complications during transport. Patient placed back on ventilator.
[2025-09-12 21:19] LABS: Hematocrit 27.6 % (41.0-53.0); Hemoglobin 9.1 g/dL (13.5-16.0)
[2025-09-12] MEDS: ATORVASTATIN CALCIUM 20 MG TABLET 40 MG PO (21:23)
[2025-09-12 21:39] LABS: Albumin, Serum 2.9 gm/dL (3.4-4.8); Anion Gap 16 (7-16); BUN/Creatinine Ratio 17 Ratio (12-20); Blood Urea Nitrogen 87 mg/dL (9-23); Calcium 7.4 mg/dL (8.3-10.6); Calcium (Corrected) 8.3 mg/dL (8.5-10.1); Carbon Dioxide 19.2 mMol/L (20.0-31.0); Chloride 108 mMol/L (98-107); Creatinine (Component) 5.2 mg/dL (0.6-1.3); Estimated Creatinine Clearance 8.8 mL/min (>60); Glucose 104 mg/dL (74-106); Osmolality,Calculated 311 (275-295); Phosphorous 6.4 mg/dL (2.4-5.1); Potassium 3.7 mMol/L (3.4-5.1); Sodium 143 mMol/L (136-145); eGFR 10 See Note
[2025-09-12] MEDS: CALCIUM GLUC/NS 1000MG IVPB 1,000 MG/50 ML BAG 50 MG IV (22:37)
[2025-09-13] VITALS (54 sets, daily range): BP systolic 83–174; BP diastolic 40–95; PULSE 78–132; RESP 7–135; TEMP 36.3–36.7; O2SAT 91–100; BMI 18.5
[2025-09-13] MEDS: Norepinephrine/D5W 8mg/250ml 8 MG/250 ML BAG 17.222 MG IV (02:00)
[2025-09-13 04:52] LABS: Base Excess -7 (-3-3); HCO3 18 mEq/L (20-26); Inspired Oxygen, FIO2 30 %; O2 Saturation 100 % (91-98); PCO2 34 mmHg (32.0-48.0); PO2 135 mmHg (83-108); pH, Arterial 7.34 (7.35-7.45)
--- NOTE | 2025-09-13 05:00 | XR_ITS ---
EXAMINATION: AP chest single view TECHNIQUE: AP portable semiupright chest single view Date and time: September 13, 2025, 0500 hours, comparison September 12, 2025 INDICATIONS: Hypoxic respiratory failure, post intubation, pneumonia left base on earlier chest films this week FINDINGS: There remains pneumonia left base obscuring detail left hemidiaphragm. Normal heart size Endotracheal tube 5.6 cm above luz maria. Orogastric tube in the stomach in satisfactory position Right internal jugular temporary dialysis catheter tip SVC, no pneumothorax Mild vascular congestion IMPRESSION: Again noted significant left base pneumonia
[2025-09-13 05:06] LABS: Allen Test Not Performed; Puncture Site Arterial Line
[2025-09-13 05:27] LABS: Basophils # (Auto) 0.0 Thou/mm3 (0.0-0.2); Basophils % (Auto) 0 % (0-2.5); Eosinophils # (Auto) 0.0 Thou/mm3 (0.0-0.5); Eosinophils % (Auto) 0 % (0-10); Hematocrit 26.1 % (41.0-53.0); Immature Granulocytes Auto 0.06 Thou/mm3 (0.00-0.00); Lymphocytes # (Auto) 0.6 Thou/mm3 (1.0-4.8); Lymphocytes % (Auto) 6 % (10-50); Mean Corpuscular HGB Conc 33.7 g/dl (31.0-37.0); Mean Corpuscular Hemoglobin 27.5 pg (25.0-35.0); Mean Corpuscular Volume 82 fL (80-100); Monocytes # (Auto) 0.4 Thou/mm3 (0.0-0.8); Monocytes % (Auto) 4 % (0-12); Neutrophils # (Auto) 9.2 Thou/mm3 (1.8-7.7); Neutrophils % (Auto) 89 % (37-80); Nucleated Red Blood Cell # 0.00 Thou/mm3 (0.00-0.00); Nucleated Red Blood Cell % 0 /100 WBC (0); Platelet Count 206 Thou/mm3 (140-440); RDW Standard Deviation 49.1 fL (35.1-43.9); Red Blood Count 3.20 Miln/mm3 (4.50-5.90); White Blood Count 10.3 Thou/mm3 (3.8-10.6)
[2025-09-13 05:28] LABS: Hemoglobin 8.8 g/dL (13.5-16.0)
[2025-09-13] MEDS: PIPERACILLIN/TAZO 2.25GM INJ 2.25 GM in SODIUM CHLORIDE 0.9% (POP) 100 ML IV ×3 (05:32→21:28)
[2025-09-13 05:36] LABS: INR 1.1 (0.9-1.3); Partial Thromboplastin Time 37.8 Seconds (22.0-36.0); Prothrombin Time 11.3 Seconds (9.0-12.2)
[2025-09-13 05:50] LABS: Alanine Aminotransferase < 7 U/L (10-49); Albumin, Serum 2.7 gm/dL (3.4-4.8); Albumin/Globulin Ratio 1.2 (1.2-2.2); Alkaline Phosphatase 66 U/L (46-116); Anion Gap 15 (7-16); Aspartate Amino Transferase 25 U/L (0-34); BUN/Creatinine Ratio 16 Ratio (12-20); Bilirubin,Total 0.3 mg/dL (0.3-1.2); Blood Urea Nitrogen 81 mg/dL (9-23); Calcium 7.5 mg/dL (8.3-10.6); Calcium (Corrected) 8.5 mg/dL (8.5-10.1); Carbon Dioxide 20.6 mMol/L (20.0-31.0); Chloride 108 mMol/L (98-107); Creatinine (Component) 5.2 mg/dL (0.6-1.3); Estimated Creatinine Clearance 8.8 mL/min (>60); Globulin 2.3 gm/dL (2.3-3.5); Glucose 103 mg/dL (74-106); Magnesium 2.6 mg/dL (1.6-2.6); Osmolality,Calculated 311 (275-295); Phosphorous 7.1 mg/dL (2.4-5.1); Potassium 3.8 mMol/L (3.4-5.1); Sodium 144 mMol/L (136-145); Total Protein 5.0 gm/dL (5.7-8.2); Vancomycin,Random 8.9 mcg/mL; eGFR 10 See Note
--- NOTE | 2025-09-13 07:27 | PD.INTPROG ---
Documentation for date of: 09/13/25 Subjective Subjective Interval history: This is an 85-year-old male who was admitted admitted yesterday for altered mental status. Initially workup was for a stroke however patient also received a abdomen pelvic CT. On the abdomen pelvic CT there was concern for pneumatosis intestinalis along with emphysematous gastritis and air in the portal system. Surgery was contacted and the patient was taken to the OR overnight. He was returned to the ICU intubated and on low-dose vasopressors. This morning he went for a MRI of the brain which showed multiple right-sided embolic CVAs which appeared acute in nature. Blood cultures are positive for GPC's in his urine is also positive for GPC's. He is on broad-spectrum antibiotics at this point in time. He has had minimal urinary output and when sedation vacation given the patient moves both lower extremities however did not follow commands. 09/13- no acute overnight events, off sedation this AM and opens eyes spontaneously , poor UOP with ~300cc/24hrs, afebrile Critical Care Note Critical care time (min.): 45 Exam Vital Signs Temp Pulse Resp BP Pulse Ox O2 Del Method FiO2 97.4 F 117 H 20 127/95 H 100 Room Air 09/13/25 04:00 09/13/25 07:00 09/13/25 07:00 09/13/25 07:00 09/13/25 07:00 09/12/25 00:00 09/13/25 07:24 Narrative Exam Gen- NAD, awake and moving R spontaneously, thin body habitus HEENT- NC/AT, mucosa hydrated, sclera anicteric, PERRL, ETT in place , NGT in place Chest- LCTAB, HRRR, fq PVC noted on tele monitor Abd- s/nt/bs diminished, midline surgical site intact with no discharge or erythema noted, pain on palp Ext- no edema, pulses palp, improvement in areas of ischemia on b/l toes, no mov of L UE/LE Vent PSV Physical Exam Completion Physical Exam Complete?: Yes 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 09/15/25 05:02 09/15/25 05:02 Labs: Laboratory Results - last 24 hr 09/12/25 09/12/25 09/12/25 07:55 10:45 12:37 WBC RBC Hgb Hct MCV MCH MCHC RDW Std Deviation Plt Count Neut % (Auto) Lymph % (Auto) [place] % (Auto) Eos % (Auto) Baso % (Auto) Neut # (Auto) Lymph # (Auto) [place] # (Auto) Eos # (Auto) Baso # (Auto) Immature Gran # (Auto) Absolute Nucleated RBC Immature Gran % Nucleated RBC % PT INR APTT Puncture Site Arterial Line ABG pH 7.35 ABG pCO2 37 ABG pO2 164 H D ABG HCO3 20 ABG O2 Saturation 100 H ABG Base Excess -5 L VBG pH 7.27 L VBG pCO2 44 VBG pO2 61 H VBG O2 Sat (Ly) 89 L VBG Base Excess -7 L FiO2 40 Sodium 144 Potassium 4.2 Chloride 109 H Carbon Dioxide 17.4 L Anion Gap 18 H BUN 94 H Creatinine 4.8 H* D Estim Creat Clear Calc 9.6 L eGFR 11 L* BUN/Creatinine Ratio 20 Glucose 162 H D Calculated Osmolality 319 H Lactic Acid 1.0 1.2 Calcium 7.2 L Corrected Calcium 8.5 Phosphorus 7.3 H Magnesium Total Bilirubin AST ALT Alkaline Phosphatase B-Natriuretic Peptide 501 H* Total Protein Albumin 2.4 L D Globulin Albumin/Globulin Ratio 25-OH Vitamin D Total 9.4 Beta-Hydroxybutyrate/Acetoacetate 0.7 H PTH Intact 114.8 H Random Vancomycin 09/12/25 09/12/25 09/13/25 13:35 20:47 04:30 WBC 10.3 D RBC 3.20 L Hgb 9.6 L 9.1 L 8.8 L Hct 28.1 L 27.6 L 26.1 L MCV 82 MCH 27.5 MCHC 33.7 RDW Std Deviation 49.1 H Plt Count 206 D Neut % (Auto) 89 H Lymph % (Auto) 6 L [place] % (Auto) 4 Eos % (Auto) 0 Baso % (Auto) 0 Neut # (Auto) 9.2 H Lymph # (Auto) 0.6 L [place] # (Auto) 0.4 Eos # (Auto) 0.0 Baso # (Auto) 0.0 Immature Gran # (Auto) 0.06 H Absolute Nucleated RBC 0.00 Immature Gran % 1 H Nucleated RBC % 0 PT 11.3 INR 1.1 APTT 37.8 H Puncture Site ABG pH ABG pCO2 ABG pO2 ABG HCO3 ABG O2 Saturation ABG Base Excess VBG pH VBG pCO2 VBG pO2 VBG O2 Sat (Ly) VBG Base Excess FiO2 Sodium 143 143 144 Potassium 3.7 D 3.7 3.8 Chloride 109 H 108 H 108 H Carbon Dioxide 18.2 L 19.2 L 20.6 Anion Gap 16 16 15 BUN 82 H 87 H 81 H Creatinine 5.1 H* 5.2 H* 5.2 H* Estim Creat Clear Calc 9.0 L 8.8 L 8.8 L eGFR 10 L* 10 L* 10 L* BUN/Creatinine Ratio 16 17 16 Glucose 142 H 104 103 Calculated Osmolality 311 H 311 H 311 H Lactic Acid 1.0 Calcium 7.2 L 7.4 L 7.5 L Corrected Calcium 8.2 L 8.3 L 8.5 Phosphorus 6.9 H 6.4 H 7.1 H Magnesium 2.6 Total Bilirubin 0.3 AST 25 ALT < 7 L Alkaline Phosphatase 66 B-Natriuretic Peptide Total Protein 5.0 L Albumin 2.7 L 2.9 L 2.7 L Globulin 2.3 Albumin/Globulin Ratio 1.2 25-OH Vitamin D Total Beta-Hydroxybutyrate/Acetoacetate 0.4 PTH Intact Random Vancomycin 8.9 09/13/25 04:44 WBC RBC Hgb Hct MCV MCH MCHC RDW Std Deviation Plt Count Neut % (Auto) Lymph % (Auto) [place] % (Auto) Eos % (Auto) Baso % (Auto) Neut # (Auto) Lymph # (Auto) [place] # (Auto) Eos # (Auto) Baso # (Auto) Immature Gran # (Auto) Absolute Nucleated RBC Immature Gran % Nucleated RBC % PT INR APTT Puncture Site Arterial Line ABG pH 7.34 L ABG pCO2 34 ABG pO2 135 H D ABG HCO3 18 L ABG O2 Saturation 100 H ABG Base Excess -7 L VBG pH VBG pCO2 VBG pO2 VBG O2 Sat (Ly) VBG Base Excess FiO2 30 Sodium Potassium Chloride Carbon Dioxide Anion Gap BUN Creatinine Estim Creat Clear Calc eGFR BUN/Creatinine Ratio Glucose Calculated Osmolality Lactic Acid Calcium Corrected Calcium Phosphorus Magnesium Total Bilirubin AST ALT Alkaline Phosphatase B-Natriuretic Peptide Total Protein Albumin Globulin Albumin/Globulin Ratio 25-OH Vitamin D Total Beta-Hydroxybutyrate/Acetoacetate PTH Intact Random Vancomycin Assessment & Plan Additional Assessment Additional Assessment: In summary this is an 85-year-old male admitted to the ICU status post ex lap with 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 MRI shows multiple right-sided embolic CVAs. - appears to have some gradual improvement Embolic CVA- noted on R MRI brain - echo pending - had been on ASA prior will d/w GI and possibly resume after EGD CV Shock-likely distributive in nature and related to sepsis. Bedside echo did not show any large pericardial effusion, windows were poor however his LV appeared to be hyperdynamic though there was some question of hypokinesia of the septum. No evidence of cardiogenic etiology for his current shock state, no large tension pneumothorax or pericardial effusion nor is PE suspected for obstructive etiology. Patient has received 4 to 5 L of fluids for volume resuscitation. Will obtain cheetah for additional hemodynamics and check an SVO 2. Titrate Levophed for MAP 65 and continue with antibiotics at this time. Central line will be placed along with an A-line as the patient is difficult stick for follow-up ABGs. - off vasopressors today HFrEF-prior echo from a year ago shows an EF of 40 to 45%, will obtain repeat echocardiogram - read currently pending Resp Acute hypoxic respiratory failure-patient is currently intubated, will wean as able, follow-up on ABGs and chest x-ray - transitioned to PSV today Atelectasis versus pneumonia-changes seen on imaging however there is no report of any respiratory symptoms prior to the patient's arrival. He will continue on his antibiotic for his current sepsis and bacteremia. Renal Acute kidney injury-patient has minimal urinary output, will place to try flow for possible need of dialysis in the future. Have discussed with nephrology. Mayo is in place, avoid nephrotoxins as able, no current indication for emergent dialysis. - still with poor UOP - d/w nephrology and hold off HD for today Hematuria-patient has a chronic indwelling Mayo however this does need to be further evaluated Anion gap metabolic acidosis-patient's lactate has normalized as has his beta hydroxy, his current anion gap is likely secondary to his acute renal failure. - now resolved UTI-urine is growing GPC's for which she is on Vanco and Zosyn awaiting further identification GI GI prophylaxis-PPI Emphysematous gastritis/pneumatosis intestinalis -patient is status post ex lap with no areas of necrosis or ischemia found, surgical recommendations appreciated - repeat abd CT obtained to eval for pts extensive air however repeat shows virtual resolution of HPVG and emphysematous gastritis - given lack of surgical findings likely benign process and may be related to underlying enteritis - extensive pneumoperitoneum is noted however expected in postop pt and has no other signs of decompensation -pt with dilated stomach on imaging however EGD did not reveal any obstruction or pyloric stenosis Hypoalbuminemia-patient is very cachectic and this is likely in the setting of malnutrition Endo Stable Heme Anemia-patient has had a drop in his H&H however this is likely both dilutional given the 4 to 5 L of fluid that he has received as well as some blood loss during surgery. - ongoing slow drop - d/w GI for ? EGD eval especially given suspicion of GIB on arrival ID Sepsis and bacteremia-currently on Vanco and Zosyn, follow-up with results of blood culture and urine cultures - prelim suggests staph - repeated bcx today to eval for clearance - awaiting echo results to eval for vegetations Case discussed with ICU teamand nephrology Labs, imaging and records reviewed Approximately 45cc min required for evaluation, exam, review, intervention and discussion and formulation of plan of care for this critically ill patient with septic shock Provider Notation Provider Notation: Although this document has been carefully reviewed, there may still be some phonetic and other typographical errors. These errors are purely grammatical due to imperfections in the software program and should not be construed in any way to compromise the substance of the patient's medical care during this visit. Thank you for the opportunity and privilege in assisting you with this patient's care and management.
--- NOTE | 2025-09-13 08:18 | PD.NEPHPROG ---
Documentation for date of: 09/13/25 Subjective Subjective Interval history: Mr. Whiting is a 85-year-old gentleman with past medical history significant for enlarged prostate, gait imbalance and is wheelchair-bound, hypotension on midodrine presented to the emergency department with altered mental status left-sided flaccid paralysis. Stroke alert was called and teleneurology was consulted. Patient also noted to have coffee-ground emesis and diagnosis of GI bleed was entertained. During hospital course patient developed ischemic colitis and transferred to ICU. Abdomen pelvic CT showed findings consistent with pneumatosis intestinalis along with emphysematous gastritis and air in the portal system. surgical consultation was requested. patient was taken to the OR and had exploratory laparotomy, abdominal washout for peritonitis. Patient came back to ICU intubated on pressors. IV antibiotics initiated. IV fluids were given. MRI of the brain which showed multiple right-sided embolic CVAs which appeared acute . Urine output started to trend down and BUN and creatinine elevated and nephrology consultation was requested. Patient currently seen in ICU. Team at bedside. In the emergency department blood pressure 128/75, heart rate 130. CBC normal, coags normal, bicarbonate 15.6, anion gap 19, BUN 68, creatinine 5.7, lactic acid 3.1, troponin 0.9, B12 702, Pro-Tyson 57.5, TSH 4.71, urinalysis shows UTI. Urine drug screen negative. Chest x-ray negative for pneumonia. Head CT negative. CTA showed arterial stenosis. EKG showed sinus tach. Patient admitted with sepsis. 09/13/2025 patient currently seen in ICU. Remains on ventilator. However he is more alert and awake. Spoke to ICU team- continue with supportive therapy. Possible extubation and transfer to telemetry today. BUN and creatinine still remains elevated. Urine output still remains low. However his bicarbonate and potassium and electrolyte seems to be acceptable. Hold dialysis and if there is any recovery tonight. If not we will plan for dialysis tomorrow Review of Systems Review of Systems ROS Unobtainable: due to endotracheal tube Exam Vital Signs Temp Pulse Resp BP Pulse Ox O2 Del Method FiO2 36.3 C 117 H 20 127/95 H 100 Room Air 09/13/25 04:00 09/13/25 07:00 09/13/25 07:00 09/13/25 07:00 09/13/25 07:00 09/12/25 00:00 09/13/25 07:24 Narrative Exam GENERAL APPEARANCE: Patient currently seen in ICU. On vent. CARDIOVASCULAR: Heart regular, no murmurs LUNGS/CHEST: Chest clear to auscultation. No rales, rhonchi, wheezing ABDOMEN: Status post bowel surgery EXTREMITIES: No edema, clubbing or cyanosis. SKIN: Skin exam normal without any rashes MUSCULOSKELETAL: In bed NEUROLOGICAL : Intubated, sedated Objective Labs 09/13/25 04:30 09/13/25 04:30 Labs: Laboratory Results - last 24 hr 09/12/25 09/12/25 09/12/25 07:55 10:45 12:37 WBC RBC Hgb Hct MCV MCH MCHC RDW Std Deviation Plt Count Neut % (Auto) Lymph % (Auto) Hudson % (Auto) Eos % (Auto) Baso % (Auto) Neut # (Auto) Lymph # (Auto) Hudson # (Auto) Eos # (Auto) Baso # (Auto) Immature Gran # (Auto) Absolute Nucleated RBC Immature Gran % Nucleated RBC % PT INR APTT Puncture Site Arterial Line ABG pH 7.35 ABG pCO2 37 ABG pO2 164 H D ABG HCO3 20 ABG O2 Saturation 100 H ABG Base Excess -5 L VBG pH 7.27 L VBG pCO2 44 VBG pO2 61 H VBG O2 Sat (Ly) 89 L VBG Base Excess -7 L FiO2 40 Sodium 144 Potassium 4.2 Chloride 109 H Carbon Dioxide 17.4 L Anion Gap 18 H BUN 94 H Creatinine 4.8 H* D Estim Creat Clear Calc 9.6 L eGFR 11 L* BUN/Creatinine Ratio 20 Glucose 162 H D Calculated Osmolality 319 H Lactic Acid 1.2 Calcium 7.2 L Corrected Calcium 8.5 Phosphorus 7.3 H Magnesium Total Bilirubin AST ALT Alkaline Phosphatase B-Natriuretic Peptide 501 H* Total Protein Albumin 2.4 L D Globulin Albumin/Globulin Ratio 25-OH Vitamin D Total 9.4 Beta-Hydroxybutyrate/Acetoacetate PTH Intact 114.8 H Random Vancomycin 09/12/25 09/12/25 09/13/25 13:35 20:47 04:30 WBC 10.3 D RBC 3.20 L Hgb 9.6 L 9.1 L 8.8 L Hct 28.1 L 27.6 L 26.1 L MCV 82 MCH 27.5 MCHC 33.7 RDW Std Deviation 49.1 H Plt Count 206 D Neut % (Auto) 89 H Lymph % (Auto) 6 L Hudson % (Auto) 4 Eos % (Auto) 0 Baso % (Auto) 0 Neut # (Auto) 9.2 H Lymph # (Auto) 0.6 L Hudson # (Auto) 0.4 Eos # (Auto) 0.0 Baso # (Auto) 0.0 Immature Gran # (Auto) 0.06 H Absolute Nucleated RBC 0.00 Immature Gran % 1 H Nucleated RBC % 0 PT 11.3 INR 1.1 APTT 37.8 H Puncture Site ABG pH ABG pCO2 ABG pO2 ABG HCO3 ABG O2 Saturation ABG Base Excess VBG pH VBG pCO2 VBG pO2 VBG O2 Sat (Ly) VBG Base Excess FiO2 Sodium 143 143 144 Potassium 3.7 D 3.7 3.8 Chloride 109 H 108 H 108 H Carbon Dioxide 18.2 L 19.2 L 20.6 Anion Gap 16 16 15 BUN 82 H 87 H 81 H Creatinine 5.1 H* 5.2 H* 5.2 H* Estim Creat Clear Calc 9.0 L 8.8 L 8.8 L eGFR 10 L* 10 L* 10 L* BUN/Creatinine Ratio 16 17 16 Glucose 142 H 104 103 Calculated Osmolality 311 H 311 H 311 H Lactic Acid 1.0 Calcium 7.2 L 7.4 L 7.5 L Corrected Calcium 8.2 L 8.3 L 8.5 Phosphorus 6.9 H 6.4 H 7.1 H Magnesium 2.6 Total Bilirubin 0.3 AST 25 ALT < 7 L Alkaline Phosphatase 66 B-Natriuretic Peptide Total Protein 5.0 L Albumin 2.7 L 2.9 L 2.7 L Globulin 2.3 Albumin/Globulin Ratio 1.2 25-OH Vitamin D Total Beta-Hydroxybutyrate/Acetoacetate 0.4 PTH Intact Random Vancomycin 8.9 09/13/25 04:44 WBC RBC Hgb Hct MCV MCH MCHC RDW Std Deviation Plt Count Neut % (Auto) Lymph % (Auto) Hudson % (Auto) Eos % (Auto) Baso % (Auto) Neut # (Auto) Lymph # (Auto) Hudson # (Auto) Eos # (Auto) Baso # (Auto) Immature Gran # (Auto) Absolute Nucleated RBC Immature Gran % Nucleated RBC % PT INR APTT Puncture Site Arterial Line ABG pH 7.34 L ABG pCO2 34 ABG pO2 135 H D ABG HCO3 18 L ABG O2 Saturation 100 H ABG Base Excess -7 L VBG pH VBG pCO2 VBG pO2 VBG O2 Sat (Ly) VBG Base Excess FiO2 30 Sodium Potassium Chloride Carbon Dioxide Anion Gap BUN Creatinine Estim Creat Clear Calc eGFR BUN/Creatinine Ratio Glucose Calculated Osmolality Lactic Acid Calcium Corrected Calcium Phosphorus Magnesium Total Bilirubin AST ALT Alkaline Phosphatase B-Natriuretic Peptide Total Protein Albumin Globulin Albumin/Globulin Ratio 25-OH Vitamin D Total Beta-Hydroxybutyrate/Acetoacetate PTH Intact Random Vancomycin ABG Interpretation ABG results: 09/12/25 09/12/25 09/12/25 00:34 04:10 10:45 ABG pH 7.42 7.29 L D ABG pCO2 23 L 39 D ABG pO2 75 L 134 H D ABG HCO3 15 L 19 L ABG O2 Saturation 96 100 H ABG Base Excess -8 L -8 L VBG pH 7.27 L VBG pCO2 44 VBG pO2 61 H VBG Base Excess -7 L 09/12/25 09/13/25 12:37 04:44 ABG pH 7.35 7.34 L ABG pCO2 37 34 ABG pO2 164 H D 135 H D ABG HCO3 20 18 L ABG O2 Saturation 100 H 100 H ABG Base Excess -5 L -7 L VBG pH VBG pCO2 VBG pO2 VBG Base Excess Assessment & Plan Additional Assessment & Plan Additional Plan: Mr. Alcantar is a 85-year-old gentleman with BPH, bilateral hydronephrosis, hypertension, congestive heart failure with reduced ejection fraction presented to the hospital with altered mental status acute left-sided weakness and workup showed that he has sepsis and a left CVA. Renal consultation requested for LIBRADO. # Acute renal failure secondary to prerenal azotemia from underlying sepsis/hypotension # Metabolic acidosis from LIBRADO/sepsis. # Electrolyte imbalance agree with IV fluids. Bicarbonate IV. Patient could be going into ischemic ATN. Urine output still remains low. Will monitor closely. If no improvement plan for dialysis tomorrow. #Acute CVA of right occipital lobe, right thalamus, right posterior parietal lobe, and high right parietal lobe Echocardiogram ordered #Shock secondary to purulent peritonitis with GPC bacteremia. On broad-spectrum antibiotics. CT scan showed emphysematous gastritis/air in the bile ducts. Repeat CT was ordered by ICU team. Patient had emergency laparotomy last night with abdominal washout. #Hx of HFmrEF 40-45% Repeat echo was pending #Purulent peritonitis status post abdominal washout, 09/12 #Emphysematous gastritis -repeat CT was ordered etiology still remains unclear.. Care discussed with Dr. Saldivar Thank you Wen for allowing me to participate in the care of Mr. Alcantar
[2025-09-13] MEDS: THIAMINE INJ 100 MG/ML VIAL 2 ML IVP (08:33)
[2025-09-13] MEDS: VANCOMYCIN/D5W 1,250 MG IVPB 250 ML 120 MG IV (09:52)
[2025-09-13] MEDS: METOCLOPRAMIDE INJ 5 MG/ML VIAL 2 ML 10 MG IVP ×3 (09:52→21:27)
--- NOTE | 2025-09-13 10:04 | PC.NURSE ---
Patient removed NG tube independently MD aware. No new orders to replace NG tube at this time, mitten restraints applied with MD order due to repeated attempts to remove central lines and other devices. Redirection of patient was unsuccessful.
--- NOTE | 2025-09-13 11:36 | PCS.ST ---
Swallow Evaluation completed. See report for details. Recommend Puree (Dysphagia 1)/Regular liquids given only from a spoon for now. ST will follow for cognitive/communication and swallowing skills.
--- NOTE | 2025-09-13 11:42 | ESPR_ITS ---
Documentation for date of: 09/13/25 Subjective Subjective Interval history: History of present illness: This patient is a 85-year-old bedbound male with past medical history of recurrent UTI with indwelling louise cathetar due to BPH and B/L hydronephrosis, history of hypertension in the past and BPH was brought in by EMS on 09/11/25 with chief complaint of altered mental status and acute left-sided weakness. Patient's daughter was contacted at midnight and on inquiry about patient's history she reported that patient stopped eating and drinking with feeling of nausea from last 24 hours prior to admission. His last meal was 48 hours ago. He was having pain in his belly and reported that he does not want to eat anything. She stated that patient has been bedbound from last 1 year after having 2 episodes of UTIs with urine retention requiring indwelling catheter. Patient's daughter reported the patient was not responding well to their commands and was not interactive when they called the EMS. Patient had a bowel movement 1 day ago. [facility] comes at home and take care of patient. ED course: Upon arrival to the ED, patient was noted to have GCS of 14 and last well-known time was at midnight. FOBT was positive. On 09/11/2025 during admission, vitals showed blood pressure 128/75, heart rate 130, respiratory 31 and afebrile. He was saturating well on room air. Patient met 2/4 SIRS criteria with tachycardia and tachypnea with possible source urine and abdominal pathology. CBC showed hemoglobin stable at 13. Coagulation panel was within normal limits. CMP showed anion gap metabolic acidosis with bicarb 15 and anion gap 19. Kidney function showed LIBRADO on CKD stage IV with BUN 68 and creatinine 5.7. Baseline creatinine 1.9 from November 2024. Lactic acidosis lactic acid 3.1. Magnesium 1.7. Troponin 0.972. Vitamin B12 702. Procalcitonin 57.52. TSH 4.71. Urinalysis showed significant pyuria and bacteria with positive leukocyte esterase. U tox was negative. Imaging Chest x-ray was negative for aspiration pneumonia. Head and neck CTA and head CT showed no acute pathology. EKG showed sinus tachycardia with occasional PVCs and prolonged QTc 490. In the ED, stroke alert was initiated and teleneuro was consulted with NIHSS score 20. Patient received Zosyn IV, Zofran IV, Protonix IV, thiamine IV and 3 L LR fluid bolus. He was admitted on floors for management and workup of acute encephalopathy with possible concern of stroke, LIBRADO and GI bleed along with UTI. PMH: As above PSH: Nonsignificant SH: Former smoker, no history of drinking alcohol. No history of illicit drug use. Allergies: NKDA Home medications: Midodrine per patient's daughter 09/12/2025: ICU team consulted for ischemic bowel. Patient was seen and examined at the bedside. Patient was barely able to talk due to pain. He was grimacing with pain when belly was palpated. Abdominal soft diffusely tender nondistended scaphoid. Patient was unable to tell if he was passing gas. Mucous membranes dry with decreased cap refill. Blood pressure was 95/65 with heart rate 124, afebrile and saturating well on room air. Patient is AO x 1 [self]. CT scan abdomen pelvis was significant for fluid in the abdomen, portal venous air, emphysematous gastritis and findings suspicious for ischemic bowel. surgery, Dr Chahal was consulted immediately. Orders were placed for 500 cc LR bolus, 2 Amps of bicarb, NG tube with LIS. Patient's family wants to proceed with full treatment. Patient was taken to the OR immediately and family was explained the high risk of mortality given co-morbidities along with ischemic bowel with possible prolong need for ventilator support. Patient is upgraded to ICU for management of ischemic bowel with emergent surgery. At 3:30 AM, Patient came back from the OR and was found that he had purulent peritonitis with dilated stomach and no evidence of small bowel ischemia. Patient will remain intubated overnight on propofol and fentanyl with RASS goal of -2 as patient received paralytic during surgery and exploratory laparotomy. Patient's blood pressure is currently with a MAP below 65 therefore we will continue with Levophed to maintain MAP. Family was updated regarding the postop surgery results. For now we will continue with NG tube with LIS due to dilated stomach. Per surgeon recommendations patient can be started on clear liquid diet tomorrow once extubated safely. 09/12/25: Patient seen and assessed at bedside. Intubated and sedated. S/p ex lap with washout last night. On propofol and fentanyl overnight, attempt sedation holiday today. Given Versed 2 mg IVP and increased Levophed due to acute drop in BP. Weaned off pressors this afternoon and MAP maintaining >65. On exam, bilateral toes have worsening ischemia. Abdominal surgical incision clean dry and intact, flakito in place, no drainage, pus, or surrounding erythema. Bicarb improving. Lactic acidosis resolved. BHB 0.7 -> 0.4, likely secondary to starvation ketosis. Creatinine improved to 4.8 s/p fluids but increased back to 5.1. MRI showed multiple embolic type acute infarcts right occipital lobe, right thalamus, right posterior parietal lobe, high right parietal lobe. No history of afib, occasional PVCs on telemetry. No known history of CVA. Previous echo 06/2024 showed mild global hypokinesis but no thrombus observed, EF 40-45%. Echo bubble ordered. Placed right IJ Triflow catheter in anticipation for possible dialysis in setting of acute renal failure. Rigth femoral arterial line also placed. GPC in urine and blood culture. Continue treatment with Zosyn and Vanc renally dosed. Spoke to nephrology, no need for dialysis today, will re-evaluate labs tomorrow and may consider Tablo versus conventional dialysis. Ordered CT A/P with oral contrast to further evaluate emphysematous gastritis and air in hepatic venous system. Spoke to GI, will do EGD tomorrow. Updated daughter Zuleima (designated medical POA), agreeable with treatment plan. NPO after midnight. Follow up H&H and repeat renal panel at 8PM. 09/13/25: No acute events overnight. Fentanyl was discontinued overnight. Patient was put on SBP, to which he tolerated, and was successfully extubated this morning. NG tube was pulled out by the patient after restraints were discontinued, so patient was given mittens for his right hand so that he would not pull out any further lines. The patient's left side has no appreciated movement and the patient seems to prefer leaning his head to the right or midline, but would not fully move his head to the left on command. Labs remained stable, however blood cultures did grow GPC's that resemble Staphylococcus aureus on preliminary report. Given this finding in addition to the patient's MRI which showed acute CVA to multiple portions of the brain and the right hemisphere, there is high suspicion for an embolic shower secondary to possible endocarditis. TTE has been taken, but still pending read. In house neurology has also been consulted for further recommendations. General surgery who performed the patient's exploratory laparotomy did not agree with any DAPT therapy at this time. CT abdomen/pelvis with oral contrast that was ordered yesterday that showed extensive pneumoperitoneum, which is not unexpected after the patient's exploratory laparotomy, but does show a surprising finding of significant improvement in the patient's emphysematous gastritis, air in the patient's liver, and pneumatosis intestinalis. Nephrology has evaluated the patient and does not recommend any dialysis today, will reevaluate tomorrow to see if the patient will need dialysis. The patient was started on Reglan as the patient has not had any bowel movements since admission, will continue to closely monitor if patient develops any abdominal pain upon starting this medication. The patient passed his swallow evaluation by speech therapy, remained stable since extubation, and has had his arterial line removed, and so patient will be downgraded to medical floors. Exam Vital Signs Temp Pulse Resp BP Pulse Ox O2 Del Method FiO2 97.6 F 111 H 19 130/81 99 Room Air 09/13/25 08:00 09/13/25 10:00 09/13/25 10:00 09/13/25 10:00 09/13/25 10:00 09/12/25 00:00 09/13/25 08:51 Narrative Exam Physical Exam: General: Alert, no acute distress. Alert and oriented to person only. RIJ Triflow catheter present. Skin: Warm, dry, intact. Head: Normocephalic, atraumatic. Does not move head to left side on command. Eye: Normal conjunctiva, PERRL. Throat: Oral mucosa dry. No obvious lesions in oropharynx. Cardiovascular: Regular rate and rhythm, no murmur, +S1/S2. Respiratory: Lungs are clear to auscultation, respirations unlabored, no crackles, no wheezing. Gastrointestinal: Nontender, non-distended, concaved. No guarding or rebound tenderness. Extremities: No edema, no cyanosis, no clubbing. 2+ radial pulse bilaterally, 2+ pedal pulse bilaterally. Neuro: Left upper and lower extremity strength 0/5. Able to speak, but needs prompting, otherwise just nods/shakes head. Objective Labs 09/13/25 04:30 09/13/25 04:30 Labs: Laboratory Results - last 24 hr 09/12/25 09/12/25 09/12/25 10:45 12:37 13:35 WBC RBC Hgb 9.6 L Hct 28.1 L MCV MCH MCHC RDW Std Deviation Plt Count Neut % (Auto) Lymph % (Auto) [place] % (Auto) Eos % (Auto) Baso % (Auto) Neut # (Auto) Lymph # (Auto) [place] # (Auto) Eos # (Auto) Baso # (Auto) Immature Gran # (Auto) Absolute Nucleated RBC Immature Gran % Nucleated RBC % PT INR APTT Puncture Site Arterial Line ABG pH 7.35 ABG pCO2 37 ABG pO2 164 H D ABG HCO3 20 ABG O2 Saturation 100 H ABG Base Excess -5 L FiO2 40 Sodium 144 143 Potassium 4.2 3.7 D Chloride 109 H 109 H Carbon Dioxide 17.4 L 18.2 L Anion Gap 18 H 16 BUN 94 H 82 H Creatinine 4.8 H* D 5.1 H* Estim Creat Clear Calc 9.6 L 9.0 L eGFR 11 L* 10 L* BUN/Creatinine Ratio 20 16 Glucose 162 H D 142 H Calculated Osmolality 319 H 311 H Lactic Acid 1.0 Calcium 7.2 L 7.2 L Corrected Calcium 8.5 8.2 L Phosphorus 7.3 H 6.9 H Magnesium Total Bilirubin AST ALT Alkaline Phosphatase Total Protein Albumin 2.4 L D 2.7 L Globulin Albumin/Globulin Ratio Beta-Hydroxybutyrate/Acetoacetate 0.4 Random Vancomycin 09/12/25 09/13/25 09/13/25 20:47 04:30 04:44 WBC 10.3 D RBC 3.20 L Hgb 9.1 L 8.8 L Hct 27.6 L 26.1 L MCV 82 MCH 27.5 MCHC 33.7 RDW Std Deviation 49.1 H Plt Count 206 D Neut % (Auto) 89 H Lymph % (Auto) 6 L [place] % (Auto) 4 Eos % (Auto) 0 Baso % (Auto) 0 Neut # (Auto) 9.2 H Lymph # (Auto) 0.6 L [place] # (Auto) 0.4 Eos # (Auto) 0.0 Baso # (Auto) 0.0 Immature Gran # (Auto) 0.06 H Absolute Nucleated RBC 0.00 Immature Gran % 1 H Nucleated RBC % 0 PT 11.3 INR 1.1 APTT 37.8 H Puncture Site Arterial Line ABG pH 7.34 L ABG pCO2 34 ABG pO2 135 H D ABG HCO3 18 L ABG O2 Saturation 100 H ABG Base Excess -7 L FiO2 30 Sodium 143 144 Potassium 3.7 3.8 Chloride 108 H 108 H Carbon Dioxide 19.2 L 20.6 Anion Gap 16 15 BUN 87 H 81 H Creatinine 5.2 H* 5.2 H* Estim Creat Clear Calc 8.8 L 8.8 L eGFR 10 L* 10 L* BUN/Creatinine Ratio 17 16 Glucose 104 103 Calculated Osmolality 311 H 311 H Lactic Acid Calcium 7.4 L 7.5 L Corrected Calcium 8.3 L 8.5 Phosphorus 6.4 H 7.1 H Magnesium 2.6 Total Bilirubin 0.3 AST 25 ALT < 7 L Alkaline Phosphatase 66 Total Protein 5.0 L Albumin 2.9 L 2.7 L Globulin 2.3 Albumin/Globulin Ratio 1.2 Beta-Hydroxybutyrate/Acetoacetate Random Vancomycin 8.9 ABG Interpretation ABG results: 09/12/25 09/12/25 09/12/25 00:34 04:10 10:45 ABG pH 7.42 7.29 L D ABG pCO2 23 L 39 D ABG pO2 75 L 134 H D ABG HCO3 15 L 19 L ABG O2 Saturation 96 100 H ABG Base Excess -8 L -8 L VBG pH 7.27 L VBG pCO2 44 VBG pO2 61 H VBG Base Excess -7 L 09/12/25 09/13/25 12:37 04:44 ABG pH 7.35 7.34 L ABG pCO2 37 34 ABG pO2 164 H D 135 H D ABG HCO3 20 18 L ABG O2 Saturation 100 H 100 H ABG Base Excess -5 L -7 L VBG pH VBG pCO2 VBG pO2 VBG Base Excess Quality Measures Quality Measures VTE prophylaxis (SCDS) Advance care planning discussed with:: patient Assessment & Plan Assessment Current Active Medications: Generic Name Dose Route Start Last Admin Trade Name Freq PRN Reason Stop Dose Admin Acetaminophen 650 mg 09/11/25 15:37 Acetaminophen Supp 650 Mg Supp PA 10/11/25 15:36 Q6H PRN PAIN SCALE 1-3 (mild Atorvastatin Calcium 40 mg 09/11/25 21:00 09/12/25 21:23 Atorvastatin Calcium 20 Mg Tablet PO 10/11/25 20:59 40 mg HS SYBIL Administration Heparin Sodium (Porcine) 2,600 unit 09/12/25 09:45 09/12/25 10:12 Heparin Sod Inj 1000 Unit/Ml Vial 10 Ml INDWELLCAT 09/26/25 09:44 2,600 unit PRN PRN Administration DIALYSIS Hydromorphone HCl 0.5 mg 09/12/25 01:05 Hydromorphone Inj 2 Mg/Ml Vial IVP 09/17/25 01:04 Q4HR PRN 4-10 moderate-sev pain Piperacillin Sod/Tazobactam 100 mls @ 200 mls/hr 09/11/25 22:00 09/13/25 05:32 Sod 2.25 gm/ Sodium Chloride IV 09/18/25 21:59 200 mls/hr Q8HR SYBIL Administration Protocol Norepinephrine/Dextrose 8 mg in 250 mls @ 5.741 mls/hr 09/12/25 01:12 09/13/25 07:12 Levophed In D5w 8mg/250ml IV 10/12/25 01:11 0 mcg/kg/min .Q24H PRN 0 mls/hr PER PROTOCOL Titration Protocol 0.05 MCG/KG/MIN Propofol 1,000 mg in 100 mls @ 1.837 mls/hr 09/12/25 03:24 09/12/25 07:43 Diprivan Ivpb IV 10/12/25 03:20 0 mcg/kg/min .Q24H PRN 0 mls/hr PER PROTOCOL Titration Protocol 5 MCG/KG/MIN Fentanyl Citrate 2,500 mcg in 250 mls @ 2.5 mls/hr 09/12/25 03:27 09/13/25 06:00 Sublimaze Inj 2,500 Mcg/250 Ml Bag IV 09/17/25 03:26 0 mcg/hr .Q24H PRN 0 mls/hr PER PROTOCOL Titration Protocol 25 MCG/HR Vancomycin HCl/Dextrose 250 mls @ 120 mls/hr 09/13/25 10:00 09/13/25 09:52 Vancomycin/D5w 1,250 Mg Ivpb IV 09/13/25 12:04 120 mls/hr X1 ONE Administration Potassium Chloride 10 meq in 100 mls @ 100 mls/hr 09/13/25 11:40 Kcl Ivpb IV 09/13/25 13:39 Q1H SYBIL Metoclopramide HCl 10 mg 09/13/25 09:45 09/13/25 09:52 Metoclopramide Inj 5 Mg/Ml Vial 2 Ml IVP 09/14/25 09:44 10 mg Q8HR SYBIL Administration Protocol Ondansetron HCl 4 mg 09/11/25 12:11 Ondansetron Inj 2 Mg/Ml Inj 2 Ml IVP 10/11/25 12:10 Q4HR PRN NAUSEA OR VOMITING Pantoprazole Sodium 40 mg 09/12/25 09:00 09/13/25 08:33 Pantoprazole Inj 40 Mg Vial IVP 10/12/25 08:59 40 mg BID SYBIL Administration Pharmacy Consult 1 each 09/12/25 09:00 Vancomycin Pharmacy To Dose 1 Each Each IV 10/12/25 08:59 QDAY PRN CONSULT Pharmacy Consult 1 each 09/12/25 02:39 Pharmacy Renal Dose Adjustment 1 Ea XX 10/12/25 02:38 PRN PRN CONSULT Thiamine HCl 100 mg 09/12/25 09:00 09/13/25 08:33 Thiamine Inj 100 Mg/Ml Vial 2 Ml IVP 10/12/25 08:59 100 mg QDAY SYBIL Administration Plan Patient is a 85-year-old bedbound male with past medical history of recurrent UTI with indwelling louise catheter secondary to BPH and B/L hydronephrosis, history of hypertension, and 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 Head CT was negative for acute stroke. CT abdomen was significant for ischemic bowel. Upgraded to ICU for ischemic bowel requiring emergent surgery. Neurology #Acute CVA of right occipital lobe, right thalamus, right posterior parietal lobe, and high right parietal lobe DDx: ischemic versus embolic (2/2 possible endocarditis) Presented with acute left sided weakness. On exam, AO x1 (self only), AOx3 at baseline. Chronically bedbound. No known history of prior strokes. Diagnostic Test: Head CT and head and neck CT showed no acute pathology. MRI 09/12 showed multiple embolic type acute infarcts right occipital lobe, right thalamus, right posterior parietal lobe, high right parietal lobe. However note patient has no hx of afib, IV drug use, or endocarditis. Echo 06/2024 showed Normal LV size. Mild systolic dysfunction with mild global hypokinesis. Stage I diastolic dysfunction. Estimated LVEF 40-45%. Normal RV size and function. Mild AV sclerosis without stenosis. Trace TR. Treatment Plan: ? No antiplatelet therapy at this time given s/p surgery and increased risk of bleeding. - Neurology consulted, appreciate recommendations Treatment Review: ? Will follow-up echo with bubble study (taken but not read) & repeat blood cultures #Acute encephalopathy DDx: Acute CVA, metabolic from sepsis due to purulent peritonitis with azotemia, metabolic acidosis, and GPC bacteremia Presented with acute left sided weakness. On exam, AO x1 (self only), AOx3 at baseline. Chronically bedbound. Diagnostic Test: Head CT and head and neck CT showed no acute pathology. CT abdomen was concerning for small bowel ischemia and dilated stomach MRI 09/12 showed multiple embolic type acute infarcts right occipital lobe, right thalamus, right posterior parietal lobe, high right parietal lobe S/p ex lap found to have purulent peritonitis with distended stomach. No perforation or bowel ischemia. Washout done. NG tube in place. Treatment Plan: -On Zosyn (09/12- ) and vancomycin renally dosed, (09/12/2025?) - Weaned off sedation 09/13 - No antiplatelet therapy as above Treatment Review: ? Will follow-up echo with bubble study (taken but not read) & repeat blood cultures Cardiovascular #Shock, resolved DDx: Septic in setting of purulent peritonitis, GPC UTI, and GPC bacteremia ?Patient presented with altered mental status and abdominal pain. No noted pain on inspiration and was saturating well on room air. He met 2/4 SIRS criteria with tachycardia and tachypnea with possible source of infection(pneumonia, UTI and ischemic bowel) ?Vitals showed blood pressure was soft during assessment and postsurgery MAP was below 65. - Bedside echo 09/12: Difficult to properly visualize complete cardiac windows however ventricles appeared hyperdynamic. No tamponade observed, low suspicion for cardiogenic or obstructive shock. - Cheetah 09/07 showed CI 2.3, CO 4.1, TPRI 2616, TPR 1452. SVI -5.7%, not fluid responsive. Diagnostic Test: ?CT abdomen was concerning for ischemic bowel -Urinalysis showed bacteria and pyuria with positive leukocyte esterase. Treatment Plan: ?S/p ex lap with washout - Weaned off levophed 09/12 ?On Zosyn (09/12- ) and vancomycin renally dosed, (09/12/2025?) ? GI consulted for concern of emhysematous gastritis #Hx of HFmrEF 40-45% - Not on any GDMT Diagnostic test -EKG showed sinus tachycardia with PVCs and prolonged QTc 490. - Echo 06/27/24 showed Normal LV size. Mild systolic dysfunction with mild global hypokinesis. Stage I diastolic dysfunction. Estimated LVEF 40-45%. Normal RV size and function. Mild AV sclerosis without stenosis. Trace TR. - S/p approx 5 L LR since admission - BNP 501 Treatment plan -Strict I&O's Treatment review - Follow-up with vitals - Continue to monitor for fluid overload - Follow up echo with bubble (taken but not read) #NSTEMI Type 2 (resolved) Respiratory #s/p extubation 09/13 Diagnostic Test: ?Patient was taken for emergent surgery for concern of ischemic bowel, came to ICU intubated and mechanically ventilated - Patient is s/p extubation after passing SBT and not requiring subsequent reintubation on 09/13 #Bilateral pleural effusions Diagnostic test ? CT abdomen pelvis showed bilateral pleural effusion with compression atalectesis. Treatment plan ? S/p 5L IV fluids - Continue IV antibiotic Zosyn and vancomycin Treatment review ?Follow-up with MRSA screen - Consider repeat CXR if oxygenation status worsens - Consider thoracentesis if patient is stable and continues to accumulate fluid GI #Purulent peritonitis status post abdominal washout, 09/12 #Dilated stomach status post NG tube LIS #Emphysematous gastritis (improving) #Pneumatosis intestinalis (improving) DDx: History of indwelling Louise catheter, ascites seen on CT - Rapid response called 12AM 09/12 for severe abdominal pain. Patient was barely able to talk due to pain. He was grimacing with pain when belly was palpated. Abdomen was soft diffusely tender nondistended scaphoid. -Patient was unable to tell if he was passing gas. Diagnostic Test: ?CT abdomen/pelvis 09/11 showed portal venous air in the liver. Ascites. Emphysematous gastritis with air in portal venous system. Markedly abnormal small bowel loops, thickened small bowel loop vargas and air in the bowel consistent with ischemic bowel - Ex lap with washout 09/12 performed by general surgeon Dr. Chahal, found to have purulent peritonitis with dilated stomach. Noted ABSENCE of ischemic bowel or small bowel perforation, perforated gastric or duodenal ulcer, perforated diverticulitis or a large bowel perforation. Anterior and posterior surface of stomach and duodenum inspected, no evidence of perforation noted. - EGD performed 09/12 showed many linear esophageal ulcers without active bleeding - CT abdomen/pelvis with oral contrast 09/12 shows significant improvement in emphysematous gastritis, portal venous air in the liver, and pneumatosis intestinalis Treatment Plan: - On Zosyn (09/12- ) and vancomycin renally dosed, (09/12/2025?) - GI consulted, appreciate recommendations - Reglan 10 mg every 8 hours Treatment Review: - Follow up final blood cultures and urine culture - Follow up repeat CT results - Clear liquid diet once extubated - Pneumoperitoneum on CT abdomen/pelvis 09/12 not unexpected given recent ex lap - If patient has acute abdominal pain with reglain, hold reglan and obtain stat imaging of abdomen Renal #LIBRADO on CKD stage IV versus acute renal failure DDx: Hypoperfusion in setting of shock, ATN - Has history of CKD stage IV. Seen by Dr. Gunderson on admission last year but does not follow any machine rug cleaner outpatient. Diagnostic Test: - Creatinine on admission 5.7, baseline 1.9-2.0. Improving s/p fluids. - Renal US showed bilateral renal cortical thinning. Moderate bilateral renal scar formation ? Patient received approx 5 L in past 24 hours but had only urine output of 300 cc at bedside. Treatment Plan: - S/p bicarb drip ? Avoid nephrotoxic agents ? Renal dose medications ? Strict SERGIO's - No need for dialysis today per nephrology, nephrology will reassess tomorrow - Nephrology consulted, appreciate recommendations Treatment Review: - Continue to monitor urine output - Study in 2018 investigating benefit of IV sodium bicarb in treating patient with severe metabolic acidemia found that administration in ICU patients decreased patients' need for CRRT, note however there was no difference in 28 day mortality - If nephrology assess that the patient will not need dialysis in the near future, will remove RIJ Triflow catheter #Mixed acidosis (improving) #Anion gap metabolic acidosis, resolved #Non-anion gap metabolic acidosis (improving) DDx: Sepsis, lactic acidosis, acute kidney injury Diagnostic tests ? Anion gap 17 -> 16 - Bicarb 15 -> 18.2 ? ABGs showed pH 7.42, pCO2 23 with FiO2 21%. - Repeat ABG showed pH 7.29 pco2 39 -Arroyo formula: 30-34 mmHg Treatment plan ?Treating underlying sepsis - S/p bicarb drip #Hypocalcemia #Hyperphosphatemia (improving) #Hyperchloremia -In the setting of acute renal failure Diagnostic tests -Phos 7.3 -> 6.9 - Cl 106 -> 108 -> 109 - Ca 8.7 --> 8.2 - PTH high 114.8 Treatment plan -No active management -Nephrology consulted Treatment review - Follow up renal panel - Nephrology to reassess need for dialysis tomorrow - If nephrology assess that the patient will not need dialysis in the near future, will remove RIJ Triflow catheter #Lactic acidosis (resolved) #Penile ulcer #Hx of indwelling urine catheter, chronic - Has history of bilateral hydronephrosis secondary to marked prostamegaly per chart review - Follows urologist Dr. Gloria, not ammendable to surgery due to failure to thrive Diagnostic work up: ?No hydronephrosis seen on renal ultrasound on 09/11 -On exam, patient has penile ulcer on ventral side of urethral opening, no pustular drainage or necrosis noted. Treatment plan -Continue with indwelling Louise catheter Treatment follow up: - Wound care for ulcer Heme #Normocytic anemia DDx: Decreased p.o. intake, DAJA in setting of failure to thrive Diagnostic Test: Hemoglobin 13.0 -> 10.5, likely hemodilutional EGD performed 09/12 showed many linear esophageal ulcers without active bleeding Treatment Plan: ? S/p Type and screen 09/12 for surgery Treatment Review: - Consider ordering pRBCs if concern for active bleed - Consider outpatient anemia work up Endo #Failure to thrive #Low BMI #Starvation ketosis (resolved) DDx: Decreased P.o. intake ?Patient is bedbound and [place] [facility] [place]. Diagnostic Test: BMI 18.3. BHB 0.7 -> 0.4. Treatment Plan: - Clear liquid diet, advance as directed by General Surgery - Speech evaluation ordered - Refer to registered dietitian for low BMI ID #GPC bacteremia #GPC UTI #Hx recurrent UTIs with chronic indwelling Louise DDx: Purulent peritonitis, UTI Diagnostic Test: ?CT A/P significant for bowel ischemia and emphysematous gastritis. ?Urinalysis showed bacteriuria and pyuria with positive leukocyte esterase with underlying indwelling urine catheter. ?Previous urine cultures grew Pseudomonas sensitive to Zosyn. ?S/p ex lap showed purulent peritonitis and dilated stomach. No evidence of ischemic bowel. Washout performed. NG tube on LIS - Blood culture collected 09/11 positive for GPC, resembling staph - Urine culture positive for mixed kimmie, possible contamination - Given chronic indewelling catheter with large penile ulcer, this may be the source of introduction GPCs into the bloodstream Treatment Plan: -IV Zosyn, (09/11/2025?) and vancomycin renally dosed (09/12/2025?) -Repeat blood cultures collected 09/13, pending Treatment Review: - Follow-up with repeat blood cultures and urine cultures MSK #Osseous metastatic disease per Bone scan in 05/21/24 Per chart review in 2023, bone scan showed Increased isotope accumulation manubrium, right and left shoulders, increased uptake diffusely in the lumbar and thoracic spine as well as sacral segments and right ischium - No active intervention ICU health maintenance DVT prophylaxis: SCDs GI prophylaxis: N/A Diet: Clear liquid diet Louise: Indwelling Louise catheter Lines: PIV, Right IJ Triple flow catheter Drips: Antibiotics. Off fentanyl, propofol, and Levophed. Vent: N/A CODE STATUS: Full code Reason of hospitalization: Patient is upgraded to ICU for management of concern for ischemic bowel but was found to have purulent perotinitis s/p abd washout & dilated stomach s/p NG LIS. Patient plan of care was discussed with attending physician, Dr. Saldivar. Luke Barrera, PGY-1
[2025-09-13] MEDS: POTASSIUM CHL 10 mEq IVPB 10 MEQ/100 ML BAG 100 MEQ IV ×2 (11:46→12:50)
--- NOTE | 2025-09-13 13:05 | PD.SURPROG ---
Documentation for date of: 09/13/25 Subjective Subjective Narrative: Patient is seen and examined in ICU. He was recently extubated, currently maintaining his airway. He inadvertently pulled out his NG tube. He also had an EGD last night that did not show evidence of perforation or any mass Exam Vital Signs Temp Pulse Resp BP Pulse Ox O2 Del Method O2 Flow Rate 97.8 F 105 H 13 142/80 H 100 Oxy Mask 2 09/13/25 12:00 09/13/25 12:00 09/13/25 12:00 09/13/25 12:00 09/13/25 12:00 09/13/25 12:00 09/13/25 12:00 FiO2 25 09/13/25 08:51 Constitutional Constitutional: no acute distress Routine Abdominal Exam Comments: Abdomen is soft and distended. Incisional dressings clean, dry and intact Assessment & Plan Assessment Additional comments: Postop day #1 status post exploratory laparotomy with abdominal washout Plan May start clear liquid if maintaining his airway. Continue care per ICU team PROCEDURES: Procedures Exploratory laparotomy with abdominal washout
--- NOTE | 2025-09-13 20:52 | PD.IMPROG ---
Documentation for date of: 09/13/25 Subjective Subjective Interval history: Upper endoscopy showed distal esophageal ulcers Hemoglobin hematocrit 8.8 and 26.1 Exam Vital Signs Temp Pulse Resp BP Pulse Ox O2 Del Method O2 Flow Rate 98.1 F 110 H 21 H 128/73 100 Oxy Mask 2 09/13/25 20:00 09/13/25 20:00 09/13/25 20:00 09/13/25 20:00 09/13/25 20:00 09/13/25 20:00 09/13/25 20:00 FiO2 25 09/13/25 20:00 Objective Labs 09/13/25 04:30 09/13/25 04:30 Labs: Laboratory Results - last 24 hr 09/12/25 09/13/25 09/13/25 20:47 04:30 04:44 WBC 10.3 D RBC 3.20 L Hgb 9.1 L 8.8 L Hct 27.6 L 26.1 L MCV 82 MCH 27.5 MCHC 33.7 RDW Std Deviation 49.1 H Plt Count 206 D Neut % (Auto) 89 H Lymph % (Auto) 6 L [place] % (Auto) 4 Eos % (Auto) 0 Baso % (Auto) 0 Neut # (Auto) 9.2 H Lymph # (Auto) 0.6 L [place] # (Auto) 0.4 Eos # (Auto) 0.0 Baso # (Auto) 0.0 Immature Gran # (Auto) 0.06 H Absolute Nucleated RBC 0.00 Immature Gran % 1 H Nucleated RBC % 0 PT 11.3 INR 1.1 APTT 37.8 H Puncture Site Arterial Line ABG pH 7.34 L ABG pCO2 34 ABG pO2 135 H D ABG HCO3 18 L ABG O2 Saturation 100 H ABG Base Excess -7 L FiO2 30 Sodium 143 144 Potassium 3.7 3.8 Chloride 108 H 108 H Carbon Dioxide 19.2 L 20.6 Anion Gap 16 15 BUN 87 H 81 H Creatinine 5.2 H* 5.2 H* Estim Creat Clear Calc 8.8 L 8.8 L eGFR 10 L* 10 L* BUN/Creatinine Ratio 17 16 Glucose 104 103 Calculated Osmolality 311 H 311 H Calcium 7.4 L 7.5 L Corrected Calcium 8.3 L 8.5 Phosphorus 6.4 H 7.1 H Magnesium 2.6 Total Bilirubin 0.3 AST 25 ALT < 7 L Alkaline Phosphatase 66 Total Protein 5.0 L Albumin 2.9 L 2.7 L Globulin 2.3 Albumin/Globulin Ratio 1.2 Random Vancomycin 8.9 Impressions Impression: Anemia blood loss upper GI bleed secondary to esophageal ulcers Continue Protonix Monitor CBC ABG Interpretation ABG results: 09/12/25 09/12/25 09/12/25 00:34 04:10 10:45 ABG pH 7.42 7.29 L D ABG pCO2 23 L 39 D ABG pO2 75 L 134 H D ABG HCO3 15 L 19 L ABG O2 Saturation 96 100 H ABG Base Excess -8 L -8 L VBG pH 7.27 L VBG pCO2 44 VBG pO2 61 H VBG Base Excess -7 L 09/12/25 09/13/25 12:37 04:44 ABG pH 7.35 7.34 L ABG pCO2 37 34 ABG pO2 164 H D 135 H D ABG HCO3 20 18 L ABG O2 Saturation 100 H 100 H ABG Base Excess -5 L -7 L VBG pH VBG pCO2 VBG pO2 VBG Base Excess Assessment & Plan Time Spent With Patient Time: Total time spent is greater than 50% in coordination of care (as documented) at patient's floor/unit and/or counseling patient:
[2025-09-13] MEDS: ATORVASTATIN CALCIUM 20 MG TABLET 40 MG PO (21:27)
--- NOTE | 2025-09-13 21:30 | PD.RESPRO ---
Documentation for date of: 09/13/25 Subjective Subjective Interval history: Patient seen today at the bedside found awake, alert, able to state name and converse. Vitals and labs reviewed. Imaging findings showed multiple infarcts accross the right thalamus, right occipital lobe, thalamus and parietal lobe. Patient noted to have left hemiparesis neglect and gaze deviation towards the right side. No sensation or motor function noted on the left upper or lower extremity. Possible etiology includes endocarditis given the blood cultures and multiple infarcts. Exam Vital Signs Temp Pulse Resp BP Pulse Ox O2 Del Method O2 Flow Rate 98.1 F 110 H 21 H 128/73 100 Oxy Mask 2 09/13/25 20:00 09/13/25 20:00 09/13/25 20:00 09/13/25 20:00 09/13/25 20:00 09/13/25 20:00 09/13/25 20:00 FiO2 25 09/13/25 20:00 Narrative Exam Physical Exam GENERAL: NAD, AAOx1-2 HEENT: Moist mucosa. Eyes open with right gaze deviation CARDIO: Heart RRR, no obvious murmurs PULM: No noted coughing/dyspnea CTA B/L, no R/W/R GI: Abdomen soft, nondistended, no pain on palpation. BSx4 SKIN/MSK/EXT: No wounds/rashes/edema/amputations, no pain on palpation. Pedal pulses present B/L NEURO: AAOx1-2, left sided hemiparesis and neglect, no sensation on left upper or lower extremities nor motor function at this time, 0/5 strength in the left upper and left lower extremity, able to move right upper and lower extremity with sensation intact. Objective Labs 09/14/25 19:08 09/14/25 04:55 Labs: Laboratory Results - last 24 hr 09/12/25 09/13/25 09/13/25 20:47 04:30 04:44 WBC 10.3 D RBC 3.20 L Hgb 8.8 L Hct 26.1 L MCV 82 MCH 27.5 MCHC 33.7 RDW Std Deviation 49.1 H Plt Count 206 D Neut % (Auto) 89 H Lymph % (Auto) 6 L [place] % (Auto) 4 Eos % (Auto) 0 Baso % (Auto) 0 Neut # (Auto) 9.2 H Lymph # (Auto) 0.6 L [place] # (Auto) 0.4 Eos # (Auto) 0.0 Baso # (Auto) 0.0 Immature Gran # (Auto) 0.06 H Absolute Nucleated RBC 0.00 Immature Gran % 1 H Nucleated RBC % 0 PT 11.3 INR 1.1 APTT 37.8 H Puncture Site Arterial Line ABG pH 7.34 L ABG pCO2 34 ABG pO2 135 H D ABG HCO3 18 L ABG O2 Saturation 100 H ABG Base Excess -7 L FiO2 30 Sodium 143 144 Potassium 3.7 3.8 Chloride 108 H 108 H Carbon Dioxide 19.2 L 20.6 Anion Gap 16 15 BUN 87 H 81 H Creatinine 5.2 H* 5.2 H* Estim Creat Clear Calc 8.8 L 8.8 L eGFR 10 L* 10 L* BUN/Creatinine Ratio 17 16 Glucose 104 103 Calculated Osmolality 311 H 311 H Calcium 7.4 L 7.5 L Corrected Calcium 8.3 L 8.5 Phosphorus 6.4 H 7.1 H Magnesium 2.6 Total Bilirubin 0.3 AST 25 ALT < 7 L Alkaline Phosphatase 66 Total Protein 5.0 L Albumin 2.9 L 2.7 L Globulin 2.3 Albumin/Globulin Ratio 1.2 Random Vancomycin 8.9 ABG Interpretation ABG results: 09/12/25 09/12/25 09/12/25 00:34 04:10 10:45 ABG pH 7.42 7.29 L D ABG pCO2 23 L 39 D ABG pO2 75 L 134 H D ABG HCO3 15 L 19 L ABG O2 Saturation 96 100 H ABG Base Excess -8 L -8 L VBG pH 7.27 L VBG pCO2 44 VBG pO2 61 H VBG Base Excess -7 L 09/12/25 09/13/25 12:37 04:44 ABG pH 7.35 7.34 L ABG pCO2 37 34 ABG pO2 164 H D 135 H D ABG HCO3 20 18 L ABG O2 Saturation 100 H 100 H ABG Base Excess -5 L -7 L VBG pH VBG pCO2 VBG pO2 VBG Base Excess Quality Measures Quality Measures VTE prophylaxis (SCDS) Advance care planning discussed with:: patient and child Assessment & Plan Assessment Current Active Medications: Generic Name Dose Route Start Last Admin Trade Name Freq PRN Reason Stop Dose Admin Acetaminophen 650 mg 09/11/25 15:37 Acetaminophen Supp 650 Mg Supp VA 10/11/25 15:36 Q6H PRN PAIN SCALE 1-3 (mild Atorvastatin Calcium 40 mg 09/11/25 21:00 09/13/25 21:27 Atorvastatin Calcium 20 Mg Tablet PO 10/11/25 20:59 40 mg HS SYBIL Administration Heparin Sodium (Porcine) 2,600 unit 09/12/25 09:45 09/12/25 10:12 Heparin Sod Inj 1000 Unit/Ml Vial 10 Ml INDWELLCAT 09/26/25 09:44 2,600 unit PRN PRN Administration DIALYSIS Hydromorphone HCl 0.5 mg 09/12/25 01:05 Hydromorphone Inj 2 Mg/Ml Vial IVP 09/17/25 01:04 Q4HR PRN 4-10 moderate-sev pain Piperacillin Sod/Tazobactam 100 mls @ 200 mls/hr 09/11/25 22:00 09/13/25 21:28 Sod 2.25 gm/ Sodium Chloride IV 09/18/25 21:59 200 mls/hr Q8HR SYBIL Administration Protocol Metoclopramide HCl 10 mg 09/13/25 09:45 09/13/25 21:27 Metoclopramide Inj 5 Mg/Ml Vial 2 Ml IVP 09/14/25 09:44 10 mg Q8HR SYBIL Administration Protocol Ondansetron HCl 4 mg 09/11/25 12:11 Ondansetron Inj 2 Mg/Ml Inj 2 Ml IVP 10/11/25 12:10 Q4HR PRN NAUSEA OR VOMITING Pharmacy Consult 1 each 09/12/25 09:00 Vancomycin Pharmacy To Dose 1 Each Each IV 10/12/25 08:59 QDAY PRN CONSULT Pharmacy Consult 1 each 09/12/25 02:39 Pharmacy Renal Dose Adjustment 1 Ea XX 10/12/25 02:38 PRN PRN CONSULT Thiamine HCl 100 mg 09/12/25 09:00 09/13/25 08:33 Thiamine Inj 100 Mg/Ml Vial 2 Ml IVP 10/12/25 08:59 100 mg QDAY SYBIL Administration Plan 85 y/o M with pmhx of BPH who was BIBA from home due to altered mental status and notable left-sided flaccid paralysis, last known well time around 12 am, NIHSS score of 20 who was admitted for stroke like symptoms, later found to have peritonitis and had emergency surgery sent to ICU for pressor support was extubated and weaned off pressors and downgraded to telemetry floor. 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 He also has right sided deviated gaze His LWK was around 09/11 at 00:00 and was found to have a NIHSS of 20, Stroke alert was called and tele neurology evaluated the patient. He was also found to have pneumoperitoneum requiring emergency surgery and upgraded to ICU, later was weaned off pressors and extubated and transfered to the floors. 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 - pending Echo to rule out endocarditis as possible etiology of embolic infarcts, given his + blood cultures - Continue Neuro checks - Physical therapy evaluation - Continue treatment of sepsis - frequent re-orientation to avoid hospital aquired delirium. #Severe sepsis, likely 2/2 #Complicated UTI (male sex, indwelling Mayo catheter, and i/s/o severe sepsis) #HAGMA #Lactic acidosis #GI bleed #Coffee-ground emesis #LIBRADO on CKD #Hx of BPH with chronic indwelling Mayo catheter #Troponinemia, likely type II NSTEMI demand ischemia 2/2 sepsis, down-trended - as per primary team Case discussed with my attending Dr. Lyla Galaviz MD PGY-2 Attending Provider Attestation/Addendum I personally have seen and examined the patient at the bedside and agreed with the resident's findings, assessment and plan of care. Patient with acute ischemic CVA, embolic type pattern, now with persistent residual left dense hemiplegia and hemineglect. Continue with treatment for sepsis and consider doing physical therapy for strengthening and placement. Cannot be on antiplatelet agent because of recent GI bleed.
[2025-09-14] VITALS (8 sets, daily range): BP systolic 108–130; BP diastolic 66–98; PULSE 101–114; RESP 12–100; TEMP 36.3–37; O2SAT 99–100; BMI 18.5; BMI 12.0
[2025-09-14] MEDS: METOCLOPRAMIDE INJ 5 MG/ML VIAL 2 ML 10 MG IVP (05:26)
[2025-09-14] MEDS: PIPERACILLIN/TAZO 2.25GM INJ 2.25 GM in SODIUM CHLORIDE 0.9% (POP) 100 ML IV ×3 (05:26→21:42)
[2025-09-14 06:11] LABS: Basophils # (Auto) 0.0 Thou/mm3 (0.0-0.2); Basophils % (Auto) 0 % (0-2.5); Eosinophils # (Auto) 0.1 Thou/mm3 (0.0-0.5); Eosinophils % (Auto) 1 % (0-10); Hematocrit 26.0 % (41.0-53.0); Immature Granulocytes Auto 0.09 Thou/mm3 (0.00-0.00); Lymphocytes # (Auto) 0.6 Thou/mm3 (1.0-4.8); Lymphocytes % (Auto) 6 % (10-50); Mean Corpuscular HGB Conc 33.8 g/dl (31.0-37.0); Mean Corpuscular Hemoglobin 27.2 pg (25.0-35.0); Mean Corpuscular Volume 80 fL (80-100); Monocytes # (Auto) 0.5 Thou/mm3 (0.0-0.8); Monocytes % (Auto) 5 % (0-12); Neutrophils # (Auto) 8.6 Thou/mm3 (1.8-7.7); Neutrophils % (Auto) 87 % (37-80); Nucleated Red Blood Cell # 0.00 Thou/mm3 (0.00-0.00); Nucleated Red Blood Cell % 0 /100 WBC (0); Platelet Count 170 Thou/mm3 (140-440); RDW Standard Deviation 46.8 fL (35.1-43.9); Red Blood Count 3.24 Miln/mm3 (4.50-5.90); White Blood Count 10.0 Thou/mm3 (3.8-10.6)
[2025-09-14 06:15] LABS: Hemoglobin 8.8 g/dL (13.5-16.0)
[2025-09-14 06:41] LABS: Alanine Aminotransferase 10 U/L (10-49); Albumin, Serum 2.9 gm/dL (3.4-4.8); Albumin/Globulin Ratio 1.3 (1.2-2.2); Alkaline Phosphatase 71 U/L (46-116); Anion Gap 18 (7-16); Aspartate Amino Transferase 35 U/L (0-34); BUN/Creatinine Ratio 16 Ratio (12-20); Bilirubin,Total 0.3 mg/dL (0.3-1.2); Blood Urea Nitrogen 78 mg/dL (9-23); Calcium 7.5 mg/dL (8.3-10.6); Calcium (Corrected) 8.4 mg/dL (8.5-10.1); Carbon Dioxide 18.1 mMol/L (20.0-31.0); Chloride 110 mMol/L (98-107); Creatinine (Component) 4.9 mg/dL (0.6-1.3); Estimated Creatinine Clearance 9.5 mL/min (>60); Globulin 2.2 gm/dL (2.3-3.5); Glucose 76 mg/dL (74-106); Magnesium 2.6 mg/dL (1.6-2.6); Osmolality,Calculated 312 (275-295); Phosphorous 5.5 mg/dL (2.4-5.1); Potassium 3.3 mMol/L (3.4-5.1); Sodium 146 mMol/L (136-145); Total Protein 5.1 gm/dL (5.7-8.2); Vancomycin,Random 23.1 mcg/mL; eGFR 11 See Note
--- NOTE | 2025-09-14 08:01 | PC.SS ---
Patient downgraded from ICU on 09-13-25.
[2025-09-14] MEDS: THIAMINE INJ 100 MG/ML VIAL 2 ML IVP (08:46)
--- NOTE | 2025-09-14 11:22 | PD.NEPHPROG ---
Documentation for date of: 09/14/25 Subjective Subjective Interval history: Mr. Whiting is a 85-year-old gentleman with past medical history significant for enlarged prostate, gait imbalance and is wheelchair-bound, hypotension on midodrine presented to the emergency department with altered mental status left-sided flaccid paralysis. Stroke alert was called and teleneurology was consulted. Patient also noted to have coffee-ground emesis and diagnosis of GI bleed was entertained. During hospital course patient developed ischemic colitis and transferred to ICU. Abdomen pelvic CT showed findings consistent with pneumatosis intestinalis along with emphysematous gastritis and air in the portal system. surgical consultation was requested. patient was taken to the OR and had exploratory laparotomy, abdominal washout for peritonitis. Patient came back to ICU intubated on pressors. IV antibiotics initiated. IV fluids were given. MRI of the brain which showed multiple right-sided embolic CVAs which appeared acute . Urine output started to trend down and BUN and creatinine elevated and nephrology consultation was requested. Patient currently seen in ICU. Team at bedside. In the emergency department blood pressure 128/75, heart rate 130. CBC normal, coags normal, bicarbonate 15.6, anion gap 19, BUN 68, creatinine 5.7, lactic acid 3.1, troponin 0.9, B12 702, Pro-Tyson 57.5, TSH 4.71, urinalysis shows UTI. Urine drug screen negative. Chest x-ray negative for pneumonia. Head CT negative. CTA showed arterial stenosis. EKG showed sinus tach. Patient admitted with sepsis. 09/13/2025 patient currently seen in ICU. Remains on ventilator. However he is more alert and awake. Spoke to ICU team- continue with supportive therapy. Possible extubation and transfer to telemetry today. BUN and creatinine still remains elevated. Urine output still remains low. However his bicarbonate and potassium and electrolyte seems to be acceptable. Hold dialysis and if there is any recovery tonight. If not we will plan for dialysis tomorrow 09/14/2025 patient currently seen in telemetry. Got out of ICU. Extubated. Seems to be slightly confused. BUN and creatinine still remains elevated although urine output tad better. Status post bowel surgery for fecal peritonitis, abdominal wash. Continue with gentle IV fluids. Clinically seems to be rather dehydrated. Spoke to primary team. Hold dialysis today Review of Systems Review of Systems Narrative Review of Systems: Patient very fatigued and tired. Denies any chest pain, shortness of breath. Exam Vital Signs Temp Pulse Resp BP Pulse Ox O2 Del Method O2 Flow Rate 36.9 C 111 H 22 H 123/73 100 Room Air 2 09/14/25 08:00 09/14/25 09:43 09/14/25 09:43 09/14/25 08:00 09/14/25 08:00 09/14/25 08:00 09/13/25 20:00 FiO2 25 09/13/25 20:00 Narrative Exam GENERAL APPEARANCE: Patient currently seen in telemetry. Extubated CARDIOVASCULAR: Heart regular, no murmurs LUNGS/CHEST: Chest clear to auscultation. No rales, rhonchi, wheezing ABDOMEN: Status post bowel surgery EXTREMITIES: No edema, clubbing or cyanosis. SKIN: Skin exam normal without any rashes MUSCULOSKELETAL: In bed NEUROLOGICAL : Sleepy although arousable Objective Labs 09/15/25 05:02 09/15/25 05:02 Labs: Laboratory Results - last 24 hr 09/14/25 04:55 WBC 10.0 RBC 3.24 L Hgb 8.8 L Hct 26.0 L MCV 80 MCH 27.2 MCHC 33.8 RDW Std Deviation 46.8 H Plt Count 170 D Neut % (Auto) 87 H Lymph % (Auto) 6 L [place] % (Auto) 5 Eos % (Auto) 1 Baso % (Auto) 0 Neut # (Auto) 8.6 H Lymph # (Auto) 0.6 L [place] # (Auto) 0.5 Eos # (Auto) 0.1 Baso # (Auto) 0.0 Immature Gran # (Auto) 0.09 H Absolute Nucleated RBC 0.00 Immature Gran % 1 H Nucleated RBC % 0 Sodium 146 H Potassium 3.3 L D Chloride 110 H Carbon Dioxide 18.1 L Anion Gap 18 H BUN 78 H Creatinine 4.9 H* Estim Creat Clear Calc 9.5 L eGFR 11 L* BUN/Creatinine Ratio 16 Glucose 76 Calculated Osmolality 312 H Calcium 7.5 L Corrected Calcium 8.4 L Phosphorus 5.5 H Magnesium 2.6 Total Bilirubin 0.3 AST 35 H ALT 10 Alkaline Phosphatase 71 Total Protein 5.1 L Albumin 2.9 L Globulin 2.2 L Albumin/Globulin Ratio 1.3 Random Vancomycin 23.1 ABG Interpretation ABG results: 1109/12/25 09/12/25 00:34 04:10 10:45 ABG pH 7.42 7.29 L D ABG pCO2 23 L 39 D ABG pO2 75 L 134 H D ABG HCO3 15 L 19 L ABG O2 Saturation 96 100 H ABG Base Excess -8 L -8 L VBG pH 7.27 L VBG pCO2 44 VBG pO2 61 H VBG Base Excess -7 L 09/12/25 09/13/25 12:37 04:44 ABG pH 7.35 7.34 L ABG pCO2 37 34 ABG pO2 164 H D 135 H D ABG HCO3 20 18 L ABG O2 Saturation 100 H 100 H ABG Base Excess -5 L -7 L VBG pH VBG pCO2 VBG pO2 VBG Base Excess Assessment & Plan Additional Assessment & Plan Additional Plan: Mr. Alcantar is a 85-year-old gentleman with BPH, bilateral hydronephrosis, hypertension, congestive heart failure with reduced ejection fraction presented to the hospital with altered mental status acute left-sided weakness and workup showed that he has sepsis and a left CVA. Renal consultation requested for LIBRADO. # Acute renal failure secondary to prerenal azotemia from underlying sepsis/hypotension # Metabolic acidosis from LIBRADO/sepsis. # Electrolyte imbalance agree with IV fluids. Bicarbonate IV. Patient could be going into ischemic ATN. Urine output still remains low. Will monitor closely. If no improvement plan for dialysis in the next 1 to 2 days.. #Acute CVA of right occipital lobe, right thalamus, right posterior parietal lobe, and high right parietal lobe Echocardiogram ordered #Shock secondary to purulent peritonitis with GPC bacteremia. On broad-spectrum antibiotics. CT scan showed emphysematous gastritis/air in the bile ducts. Repeat CT was ordered by ICU team--did not show any gas.. 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 Care discussed with primary team Quality - progress note Quality Measures Quality Measures: VTE prophylaxis Reason for Continued Stay Reason for Continued Stay: further monitoring
--- NOTE | 2025-09-14 11:34 | EKG_ITS ---
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
--- NOTE | 2025-09-14 14:03 | ESPR_ITS ---
<Statement entered by Trupti Estrada MD - 09/25/25 08:31> I reviewed above note and agree with findings and plans. I have also personally examined the patient with medicine team and went over assessment and plan with medical team including university internship and resident physician. Documentation for date of: 09/14/25 Subjective Subjective Interval history: * Patient seen and examined at bedside. * Patient continues to have left hemineglect, right gaze preference. * Creatinine improved and patient is making urine, nephrology will hold dialysis. * Continuing vancomycin and Zosyn, repeat blood cultures negative. Exam Vital Signs Temp Pulse Resp BP Pulse Ox O2 Del Method O2 Flow Rate 98.4 F 106 H 22 H 123/73 100 Room Air 2 09/14/25 08:00 09/14/25 12:00 09/14/25 09:43 09/14/25 08:00 09/14/25 08:00 09/14/25 08:00 09/13/25 20:00 FiO2 25 09/13/25 20:00 Narrative Exam General: Frail elderly man, temporal wasting. Neurologic: GCS 11. Not following commands. Left-sided hemineglect in the upper and lower extremities. . Dysarthria. HEENT: Right gaze preference. Normocephalic, atraumatic, mucous membranes moist. Pupils reactive to light. Heart: Regular rate and rhythm, normal S1 and S2, no murmurs. Lungs: Clear to auscultation bilaterally with no wheezing or crackles. Abdomen: Midline surgical scar no evidence of infection. Unable to assess tenderness. Soft, nondistended. Extremities: No edema. 2+ radial and dorsalis pedis pulses bilaterally. Skin: Warm. Dry. No rash or ecchymoses. Objective Labs 09/15/25 05:02 09/15/25 05:02 Labs: Laboratory Results - last 24 hr 09/14/25 04:55 WBC 10.0 RBC 3.24 L Hgb 8.8 L Hct 26.0 L MCV 80 MCH 27.2 MCHC 33.8 RDW Std Deviation 46.8 H Plt Count 170 D Neut % (Auto) 87 H Lymph % (Auto) 6 L [place] % (Auto) 5 Eos % (Auto) 1 Baso % (Auto) 0 Neut # (Auto) 8.6 H Lymph # (Auto) 0.6 L [place] # (Auto) 0.5 Eos # (Auto) 0.1 Baso # (Auto) 0.0 Immature Gran # (Auto) 0.09 H Absolute Nucleated RBC 0.00 Immature Gran % 1 H Nucleated RBC % 0 Sodium 146 H Potassium 3.3 L D Chloride 110 H Carbon Dioxide 18.1 L Anion Gap 18 H BUN 78 H Creatinine 4.9 H* Estim Creat Clear Calc 9.5 L eGFR 11 L* BUN/Creatinine Ratio 16 Glucose 76 Calculated Osmolality 312 H Calcium 7.5 L Corrected Calcium 8.4 L Phosphorus 5.5 H Magnesium 2.6 Total Bilirubin 0.3 AST 35 H ALT 10 Alkaline Phosphatase 71 Total Protein 5.1 L Albumin 2.9 L Globulin 2.2 L Albumin/Globulin Ratio 1.3 Random Vancomycin 23.1 ABG Interpretation ABG results: 09/12/25 09/12/25 09/12/25 00:34 04:10 10:45 ABG pH 7.42 7.29 L D ABG pCO2 23 L 39 D ABG pO2 75 L 134 H D ABG HCO3 15 L 19 L ABG O2 Saturation 96 100 H ABG Base Excess -8 L -8 L VBG pH 7.27 L VBG pCO2 44 VBG pO2 61 H VBG Base Excess -7 L 09/12/25 09/13/25 12:37 04:44 ABG pH 7.35 7.34 L ABG pCO2 37 34 ABG pO2 164 H D 135 H D ABG HCO3 20 18 L ABG O2 Saturation 100 H 100 H ABG Base Excess -5 L -7 L VBG pH VBG pCO2 VBG pO2 VBG Base Excess Quality Measures Quality Measures VTE prophylaxis (SCDS) Advance care planning discussed with:: patient Assessment & Plan Assessment Current Active Medications: Generic Name Dose Route Start Last Admin Trade Name Freq PRN Reason Stop Dose Admin Acetaminophen 650 mg 09/11/25 15:37 Acetaminophen Supp 650 Mg Supp NC 10/11/25 15:36 Q6H PRN PAIN SCALE 1-3 (mild Atorvastatin Calcium 40 mg 09/11/25 21:00 09/13/25 21:27 Atorvastatin Calcium 20 Mg Tablet PO 10/11/25 20:59 40 mg HS SYBIL Administration Heparin Sodium (Porcine) 2,600 unit 09/12/25 09:45 09/12/25 10:12 Heparin Sod Inj 1000 Unit/Ml Vial 10 Ml INDWELLCAT 09/26/25 09:44 2,600 unit PRN PRN Administration DIALYSIS Hydromorphone HCl 0.5 mg 09/12/25 01:05 Hydromorphone Inj 2 Mg/Ml Vial IVP 09/17/25 01:04 Q4HR PRN 4-10 moderate-sev pain Piperacillin Sod/Tazobactam 100 mls @ 200 mls/hr 09/11/25 22:00 09/14/25 13:12 Sod 2.25 gm/ Sodium Chloride IV 09/18/25 21:59 200 mls/hr Q8HR SYBIL Administration Protocol Potassium Chloride 20 meq/ 1,010 mls @ 80 mls/hr 09/14/25 07:30 09/14/25 08:45 Sodium Chloride IV 09/15/25 08:45 80 mls/hr .[id number] SYBIL Administration Ondansetron HCl 4 mg 09/11/25 12:11 Ondansetron Inj 2 Mg/Ml Inj 2 Ml IVP 10/11/25 12:10 Q4HR PRN NAUSEA OR VOMITING Pharmacy Consult 1 each 09/12/25 09:00 Vancomycin Pharmacy To Dose 1 Each Each IV 10/12/25 08:59 QDAY PRN CONSULT Pharmacy Consult 1 each 09/12/25 02:39 Pharmacy Renal Dose Adjustment 1 Ea XX 10/12/25 02:38 PRN PRN CONSULT Thiamine HCl 100 mg 09/12/25 09:00 09/14/25 08:46 Thiamine Inj 100 Mg/Ml Vial 2 Ml IVP 10/12/25 08:59 100 mg QDAY SYBIL Administration Plan Summary: Patient is a 85-year-old bedbound male with past medical history of recurrent UTI with indwelling louise catheter secondary to BPH and B/L hydronephrosis, history of hypertension, and 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 Head CT was negative for acute stroke. CT abdomen was significant for evidence of ischemic bowel. Patient was taken to the OR for ex lap on 09/12/2025 and was found to have purulent peritonitis. He was upgraded to the ICU after surgery requiring pressors. He was extubated on 09/13/2025 and downgraded to the floors. #Acute CVA of right occipital lobe, right thalamus, right posterior parietal lobe, and high right parietal lobe * Presented with acute left sided weakness. * On exam, AO x0 (self only), AOx3 at baseline. Chronically bedbound. * No known history of prior strokes. * Head CT and head and neck CT showed no acute pathology. * MRI 09/12 showed multiple embolic type acute infarcts right occipital lobe, right thalamus, right posterior parietal lobe, high right parietal lobe. * Patient has had evidence of A-fib versus irregular rhythm on telemetry monitoring, EKG on 09/14/2025 showed sinus tachycardia with premature ventricular complexes * Low suspicion for septic emboli given the patient has no leukocytosis, is afebrile, and repeat blood cultures are negative after 24 hours. This may reinforce thrombotic emboli. Plan: * No antiplatelet therapy at this time given s/p surgery and increased risk of bleeding. * Neurology consulted, appreciate recommendations Reassessment: * Repeat blood cultures negative after 24 hours #GPC bacteremia #GPC GNR UTI #Hx recurrent UTIs with chronic indwelling Louise * Blood culture collected 09/11 positive for GPC * Repeat blood cultures on 09/13/2025 negative after 24 hours * Bacteremia may have stemmed from UTI versus purulent peritonitis Plan: * IV Zosyn, (09/11/2025?) * Vancomycin renally dosed (09/12/2025?) #Purulent peritonitis status post abdominal washout, 09/12 #Dilated stomach status post NG tube LIS #Emphysematous gastritis (improving) #Pneumatosis intestinalis (improving) * History of indwelling Louise catheter, ascites seen on CT * Rapid response called 12AM 09/12 for severe abdominal pain. Patient was barely able to talk due to pain. He was grimacing with pain when belly was palpated. Abdomen was soft diffusely tender nondistended scaphoid. Patient was unable to tell if he was passing gas. * CT abdomen/pelvis 09/11 showed portal venous air in the liver. Ascites. Emphysematous gastritis with air in portal venous system. Markedly abnormal small bowel loops, thickened small bowel loop vargas and air in the bowel consistent with ischemic bowel * Ex lap with washout 09/12 performed by general surgeon Dr. Chahal, found to have purulent peritonitis with dilated stomach. * Noted ABSENCE of ischemic bowel or small bowel perforation, perforated gastric or duodenal ulcer, perforated diverticulitis or a large bowel perforation. Anterior and posterior surface of stomach and duodenum inspected, no evidence of perforation noted. * EGD performed 09/12 showed many linear esophageal ulcers without active bleeding * CT abdomen/pelvis with oral contrast 09/12 shows significant improvement in emphysematous gastritis, portal venous air in the liver, and pneumatosis intestinalis Plan: * Zosyn (09/12- ) * Vancomycin renally dosed, (09/12/2025?) * GI consulted * Reglan 10 mg every 8 hours #Hx of HFmrEF 40-45% * Not on any GDMT * Echo 06/27/24 showed Normal LV size. Mild systolic dysfunction with mild global hypokinesis. Stage I diastolic dysfunction. Estimated LVEF 40-45%. Normal RV size and function. Mild AV sclerosis without stenosis. Trace TR. * S/p approx 5 L LR since admission * BNP 501 Plan: * Strict I&O's * Continue to monitor for fluid overload * Echo on 09/11/2025 was an insufficient study however there was an estimated EF of 30-35% * May repeat echo #Acute encephalopathy #Acute CVA * Consider acute CVA, metabolic from sepsis due to purulent peritonitis with azotemia, metabolic acidosis, and GPC bacteremia * On exam, AO x0 (self only), AOx3 at baseline. Chronically bedbound. * MRI 09/12 showed multiple embolic type acute infarcts right occipital lobe, right thalamus, right posterior parietal lobe, high right parietal lobe * Left-sided hemineglect on exam, right sided gaze preference Plan: * Continue Neuro checks * Physical therapy evaluation * Continue treatment of sepsis * Frequent re-orientation to avoid hospital aquired delirium. #Bilateral pleural effusions * CT abdomen pelvis showed bilateral pleural effusion with compression atalectesis. Plan: * S/p 5L IV fluids * Continue IV antibiotic Zosyn and vancomycin * Consider thoracentesis if patient is stable and continues to accumulate fluid #LIBRADO on CKD stage IV versus acute renal failure * Consider hypoperfusion in setting of shock, ATN * Has history of CKD stage IV. Seen by Dr. Gunderson on admission last year but does not follow any layout technician outpatient. * Renal US showed bilateral renal cortical thinning. Moderate bilateral renal scar formation * Creatinine improved to two 4.9 from 5.2 on downgrade * Patient put out approximately 0.6 L in the past 24 hours Plan: * Per nephrology, will hold dialysis for today * Avoid nephrotoxic agents * Renal dose medications * Strict SERGIO's #Mixed acidosis (improving) #Anion gap metabolic acidosis, resolved #Non-anion gap metabolic acidosis (improving) * In the setting of sepsis, lactic acidosis, acute kidney injury * ABGs showed pH 7.42, pCO2 23 with FiO2 21%. * Repeat ABG showed pH 7.29 pco2 39 * Anion gap 15 -> 18 on ICU downgrade Plan: * Treating underlying bacteremia #Hypocalcemia #Hyperphosphatemia (improving) #Hyperchloremia * In the setting of acute renal failure Plan: * Dialysis per nephrology #Penile ulcer #Hx of indwelling urine catheter, chronic * Has history of bilateral hydronephrosis secondary to marked prostamegaly per chart review * Follows urologist Dr. Gloria, not ammendable to surgery due to failure to thrive * No hydronephrosis seen on renal ultrasound on 09/11 Plan: * Continue with indwelling Louise catheter * Wound care for ulcer #Normocytic anemia * Consider Decreased p.o. intake, DAJA in setting of failure to thrive * Hemoglobin 8.8 and stable Plan: * No active intervention at this time * Trend with daily labs #Failure to thrive #Low BMI #Starvation ketosis (resolved) * Decreased P.o. intake * Patient is bedbound and taken care of by [facility] nursing at home. * BMI 18.3. * BHB 0.7 -> 0.4. Plan: * Clear liquid diet, advance as directed by General Surgery * Speech evaluation ordered * Refer to registered dietitian for low BMI #Osseous metastatic disease per Bone scan in 05/21/24 * Per chart review in 2023, bone scan showed Increased isotope accumulation manubrium, right and left shoulders, increased uptake diffusely in the lumbar and thoracic spine as well as sacral segments and right ischium Plan: * No active intervention # Septic shock secondary to GPC bacteremia versus purulent peritonitis (Resolved) #NSTEMI Type 2 (resolved) #Status post extubation 09/13 #Lactic acidosis (resolved) Hospital Maintenance: DVT ppx: SCDs Diet: Clear liquid diet IV lines: Peripheral IVs Louise: In place Code status: Full code Dispo: Downgraded from ICU, continuing vancomycin and Zosyn for bacteremia, 24- hour blood cultures negative. Holding dialysis today. Patient was seen and discussed with my attending physician Dr. Sean PIERRE. Sridhar Martinez DO PGY-1.
--- NOTE | 2025-09-14 17:49 | PD.IMPROG ---
Documentation for date of: 09/14/25 Subjective Subjective Interval history: Hemoglobin hematocrit 8.8 and 26.0 Upper endoscopy showed distal esophageal ulcers and gastritis Exam Vital Signs Temp Pulse Resp BP Pulse Ox O2 Del Method O2 Flow Rate 97.7 F 108 H 17 110/66 99 Room Air 2 09/14/25 16:00 09/14/25 16:00 09/14/25 16:00 09/14/25 16:00 09/14/25 16:00 09/14/25 12:00 09/13/25 20:00 FiO2 25 09/13/25 20:00 Objective Labs 09/14/25 04:55 09/14/25 04:55 Labs: Laboratory Results - last 24 hr 09/14/25 04:55 WBC 10.0 RBC 3.24 L Hgb 8.8 L Hct 26.0 L MCV 80 MCH 27.2 MCHC 33.8 RDW Std Deviation 46.8 H Plt Count 170 D Neut % (Auto) 87 H Lymph % (Auto) 6 L [place] % (Auto) 5 Eos % (Auto) 1 Baso % (Auto) 0 Neut # (Auto) 8.6 H Lymph # (Auto) 0.6 L [place] # (Auto) 0.5 Eos # (Auto) 0.1 Baso # (Auto) 0.0 Immature Gran # (Auto) 0.09 H Absolute Nucleated RBC 0.00 Immature Gran % 1 H Nucleated RBC % 0 Sodium 146 H Potassium 3.3 L D Chloride 110 H Carbon Dioxide 18.1 L Anion Gap 18 H BUN 78 H Creatinine 4.9 H* Estim Creat Clear Calc 9.5 L eGFR 11 L* BUN/Creatinine Ratio 16 Glucose 76 Calculated Osmolality 312 H Calcium 7.5 L Corrected Calcium 8.4 L Phosphorus 5.5 H Magnesium 2.6 Total Bilirubin 0.3 AST 35 H ALT 10 Alkaline Phosphatase 71 Total Protein 5.1 L Albumin 2.9 L Globulin 2.2 L Albumin/Globulin Ratio 1.3 Random Vancomycin 23.1 Impressions Impression: Distal esophageal ulcers Gastritis Anemia blood loss Hemoglobin hematocrit 8.8 and 26.0 relatively stable Continue current management ABG Interpretation ABG results: 09/12/25 09/12/25 09/12/25 00:34 04:10 10:45 ABG pH 7.42 7.29 L D ABG pCO2 23 L 39 D ABG pO2 75 L 134 H D ABG HCO3 15 L 19 L ABG O2 Saturation 96 100 H ABG Base Excess -8 L -8 L VBG pH 7.27 L VBG pCO2 44 VBG pO2 61 H VBG Base Excess -7 L 09/12/25 09/13/25 12:37 04:44 ABG pH 7.35 7.34 L ABG pCO2 37 34 ABG pO2 164 H D 135 H D ABG HCO3 20 18 L ABG O2 Saturation 100 H 100 H ABG Base Excess -5 L -7 L VBG pH VBG pCO2 VBG pO2 VBG Base Excess Assessment & Plan Time Spent With Patient Time: Total time spent is greater than 50% in coordination of care (as documented) at patient's floor/unit and/or counseling patient:
[2025-09-14 19:24] LABS: Hematocrit 22.5 % (41.0-53.0)
[2025-09-14 19:33] LABS: Hemoglobin 7.6 g/dL (13.5-16.0)
[2025-09-14] MEDS: ATORVASTATIN CALCIUM 20 MG TABLET 40 MG PO (20:40)
--- NOTE | 2025-09-14 23:34 | VVPN_ITS ---
Telemedicine visit statement This visit was conducted with the use of phone was obtained on 09/14/25 at 2334. Documentation for date of: 09/14/25 Subjective Subjective Interval history: 85 y/o M with pmhx of BPH who was BIBA from home due to altered mental status and notable left-sided flaccid paralysis, last known well time around 12 am, NIHSS score of 20 who was admitted for stroke like symptoms, later found to have peritonitis and had emergency surgery sent to ICU for pressor support was extubated and weaned off pressors and downgraded to telemetry floor. Patient is in telemetry. No new symptoms reported. Intermittently confused and disoriented. Continue to have left dense hemiplegia and hemineglect. Virtual exam Vital Signs Temp Pulse Resp BP Pulse Ox O2 Del Method O2 Flow Rate 98.6 F 101 H 23 H 117/66 100 Room Air 2 09/14/25 20:00 09/14/25 20:38 09/14/25 20:38 09/14/25 20:00 09/14/25 20:00 09/14/25 20:00 09/13/25 20:00 FiO2 25 09/13/25 20:00 Objective Labs 09/14/25 19:08 09/14/25 04:55 Labs: Laboratory Results - last 24 hr 09/14/25 09/14/25 04:55 19:08 WBC 10.0 RBC 3.24 L Hgb 8.8 L 7.6 L Hct 26.0 L 22.5 L MCV 80 MCH 27.2 MCHC 33.8 RDW Std Deviation 46.8 H Plt Count 170 D Neut % (Auto) 87 H Lymph % (Auto) 6 L [place] % (Auto) 5 Eos % (Auto) 1 Baso % (Auto) 0 Neut # (Auto) 8.6 H Lymph # (Auto) 0.6 L [place] # (Auto) 0.5 Eos # (Auto) 0.1 Baso # (Auto) 0.0 Immature Gran # (Auto) 0.09 H Absolute Nucleated RBC 0.00 Immature Gran % 1 H Nucleated RBC % 0 Sodium 146 H Potassium 3.3 L D Chloride 110 H Carbon Dioxide 18.1 L Anion Gap 18 H BUN 78 H Creatinine 4.9 H* Estim Creat Clear Calc 9.5 L eGFR 11 L* BUN/Creatinine Ratio 16 Glucose 76 Calculated Osmolality 312 H Calcium 7.5 L Corrected Calcium 8.4 L Phosphorus 5.5 H Magnesium 2.6 Total Bilirubin 0.3 AST 35 H ALT 10 Alkaline Phosphatase 71 Total Protein 5.1 L Albumin 2.9 L Globulin 2.2 L Albumin/Globulin Ratio 1.3 Random Vancomycin 23.1 ABG Interpretation ABG results: 09/12/25 09/12/25 09/12/25 00:34 04:10 10:45 ABG pH 7.42 7.29 L D ABG pCO2 23 L 39 D ABG pO2 75 L 134 H D ABG HCO3 15 L 19 L ABG O2 Saturation 96 100 H ABG Base Excess -8 L -8 L VBG pH 7.27 L VBG pCO2 44 VBG pO2 61 H VBG Base Excess -7 L 09/12/25 09/13/25 12:37 04:44 ABG pH 7.35 7.34 L ABG pCO2 37 34 ABG pO2 164 H D 135 H D ABG HCO3 20 18 L ABG O2 Saturation 100 H 100 H ABG Base Excess -5 L -7 L VBG pH VBG pCO2 VBG pO2 VBG Base Excess Assessment & Plan Problem List (1) CVA (cerebral vascular accident): Status: Acute Assessment and plan: 85 y/o M with pmhx of BPH who was BIBA from home due to altered mental status and notable left-sided flaccid paralysis, last known well time around 12 am, NIHSS score of 20 who was admitted for stroke like symptoms, later found to have peritonitis and had emergency surgery sent to ICU for pressor support was extubated and weaned off pressors and downgraded to telemetry floor. 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 He also has right sided deviated gaze His LWK was around 09/11 at 00:00 and was found to have a NIHSS of 20, Stroke alert was called and tele neurology evaluated the patient. He was also found to have pneumoperitoneum requiring emergency surgery and upgraded to ICU, later was weaned off pressors and extubated and transfered to the floors. Initial imaging including Head CT and Head/Neck CTA showed no acute hemorrhage, mass effect or midline shift, no signs of LVO MRI Brain showed Multiple embolic type acute infarcts right occipital lobe, right thalamus, right posterior parietal lobe, high right parietal lobe Evaluated today was able to state his first and last name able to converse, and state his daughters name, however continues with left hemiplegia and hemineglect with 0/5 strength in left upper and lower extremity, no sensation on this side either. - pending repeat Echo to rule out endocarditis as possible etiology of embolic infarcts, given his + blood cultures - Continue Neuro checks - Physical therapy evaluation - Continue antibiotics - frequent re-orientation to avoid hospital acquired delirium. #Severe sepsis, likely 2/2 #Complicated UTI (male sex, indwelling Amyo catheter, and i/s/o severe sepsis) #HAGMA #Lactic acidosis #GI bleed #Coffee-ground emesis #LIBRADO on CKD #Hx of BPH with chronic indwelling Mayo catheter #Troponinemia, likely type II NSTEMI demand ischemia 2/2 sepsis, down-trended - as per primary team
[2025-09-15] VITALS (10 sets, daily range): BP systolic 101–120; BP diastolic 61–82; PULSE 57–121; RESP 14–100; TEMP 36.6–36.9; O2SAT 99–100; BMI 18.3
[2025-09-15 06:18] LABS: Basophils # (Auto) 0.0 Thou/mm3 (0.0-0.2); Basophils % (Auto) 0 % (0-2.5); Eosinophils # (Auto) 0.2 Thou/mm3 (0.0-0.5); Eosinophils % (Auto) 3 % (0-10); Hematocrit 23.1 % (41.0-53.0); Hemoglobin 7.8 g/dL (13.5-16.0); Immature Granulocytes Auto 0.06 Thou/mm3 (0.00-0.00); Lymphocytes # (Auto) 0.7 Thou/mm3 (1.0-4.8); Lymphocytes % (Auto) 8 % (10-50); Mean Corpuscular HGB Conc 33.8 g/dl (31.0-37.0); Mean Corpuscular Hemoglobin 27.6 pg (25.0-35.0); Mean Corpuscular Volume 82 fL (80-100); Monocytes # (Auto) 0.4 Thou/mm3 (0.0-0.8); Monocytes % (Auto) 5 % (0-12); Neutrophils # (Auto) 6.8 Thou/mm3 (1.8-7.7); Neutrophils % (Auto) 84 % (37-80); Nucleated Red Blood Cell # 0.00 Thou/mm3 (0.00-0.00); Nucleated Red Blood Cell % 0 /100 WBC (0); Platelet Count 167 Thou/mm3 (140-440); RDW Standard Deviation 48.4 fL (35.1-43.9); Red Blood Count 2.83 Miln/mm3 (4.50-5.90); White Blood Count 8.2 Thou/mm3 (3.8-10.6)
[2025-09-15] MEDS: PIPERACILLIN/TAZO 2.25GM INJ 2.25 GM in SODIUM CHLORIDE 0.9% (POP) 100 ML IV ×3 (06:26→21:10)
[2025-09-15 06:40] LABS: Alanine Aminotransferase 10 U/L (10-49); Albumin, Serum 2.7 gm/dL (3.4-4.8); Albumin/Globulin Ratio 1.2 (1.2-2.2); Alkaline Phosphatase 109 U/L (46-116); Anion Gap 13 (7-16); Aspartate Amino Transferase 36 U/L (0-34); BUN/Creatinine Ratio 16 Ratio (12-20); Bilirubin,Total 0.4 mg/dL (0.3-1.2); Blood Urea Nitrogen 67 mg/dL (9-23); Calcium 7.2 mg/dL (8.3-10.6); Calcium (Corrected) 8.2 mg/dL (8.5-10.1); Carbon Dioxide 21.1 mMol/L (20.0-31.0); Chloride 113 mMol/L (98-107); Creatinine (Component) 4.3 mg/dL (0.6-1.3); Estimated Creatinine Clearance 11.6 mL/min (>60); Globulin 2.3 gm/dL (2.3-3.5); Glucose 94 mg/dL (74-106); Magnesium 2.3 mg/dL (1.6-2.6); Osmolality,Calculated 311 (275-295); Phosphorous 3.6 mg/dL (2.4-5.1); Potassium 3.3 mMol/L (3.4-5.1); Sodium 147 mMol/L (136-145); Total Protein 5.0 gm/dL (5.7-8.2); Vancomycin,Random 19.1 mcg/mL; eGFR 13 See Note
[2025-09-15] MEDS: THIAMINE INJ 100 MG/ML VIAL 2 ML IVP (08:06)
--- NOTE | 2025-09-15 08:34 | PC.CM ---
Patient is opened to [facility] health. If patient discharges home he will need new home health orders.
[2025-09-15] MEDS: KCL 20 mEq/L in 1/2NS 20 MEQ/1,000 ML BAG 80 MEQ IV (11:08)
--- NOTE | 2025-09-15 11:31 | PD.RESPRO ---
Documentation for date of: 09/15/25 Subjective Subjective Interval history: Mr. Whiting is a 85-year-old gentleman with past medical history significant for enlarged prostate, gait imbalance and is wheelchair-bound, hypotension on midodrine presented to the emergency department with altered mental status left-sided flaccid paralysis. Stroke alert was called and teleneurology was consulted. Patient also noted to have coffee-ground emesis and diagnosis of GI bleed was entertained. During hospital course patient developed ischemic colitis and transferred to ICU. Abdomen pelvic CT showed findings consistent with pneumatosis intestinalis along with emphysematous gastritis and air in the portal system. surgical consultation was requested. patient was taken to the OR and had exploratory laparotomy, abdominal washout for peritonitis. Patient came back to ICU intubated on pressors. IV antibiotics initiated. IV fluids were given. MRI of the brain which showed multiple right-sided embolic CVAs which appeared acute . Urine output started to trend down and BUN and creatinine elevated and nephrology consultation was requested. Patient currently seen in ICU. Team at bedside. In the emergency department blood pressure 128/75, heart rate 130. CBC normal, coags normal, bicarbonate 15.6, anion gap 19, BUN 68, creatinine 5.7, lactic acid 3.1, troponin 0.9, B12 702, Pro-Tyson 57.5, TSH 4.71, urinalysis shows UTI. Urine drug screen negative. Chest x-ray negative for pneumonia. Head CT negative. CTA showed arterial stenosis. EKG showed sinus tach. Patient admitted with sepsis. 09/13/2025 patient currently seen in ICU. Remains on ventilator. However he is more alert and awake. Spoke to ICU team- continue with supportive therapy. Possible extubation and transfer to telemetry today. BUN and creatinine still remains elevated. Urine output still remains low. However his bicarbonate and potassium and electrolyte seems to be acceptable. Hold dialysis and if there is any recovery tonight. If not we will plan for dialysis tomorrow 09/14/2025 patient currently seen in telemetry. Got out of ICU. Extubated. Seems to be slightly confused. BUN and creatinine still remains elevated although urine output tad better. Status post bowel surgery for fecal peritonitis, abdominal wash. Continue with gentle IV fluids. Clinically seems to be rather dehydrated. Spoke to primary team. Hold dialysis today 09/15/2025: Patient seen and examined in telemetry today. Patient only oriented to self today, complained of feeling cold. Urine output 980 cc in past 24 hours. BUN and creatinine improved to 67 and 4.3 from 78 and 4.9 respectively. Started patient on 0.45% normal saline with KCl at 80 cc/h. Patient's urine output improved so no need for dialysis at this point. Exam Vital Signs Temp Pulse Resp BP Pulse Ox O2 Del Method O2 Flow Rate 98.1 F 57 L 18 109/82 100 Room Air 2 09/15/25 08:00 09/15/25 09:34 09/15/25 09:34 09/15/25 08:00 09/15/25 08:00 09/15/25 08:00 09/13/25 20:00 FiO2 25 09/13/25 20:00 Narrative Exam GENERAL APPEARANCE: Patient currently seen in telemetry. CARDIOVASCULAR: Heart regular, no murmurs LUNGS/CHEST: Chest clear to auscultation. No rales, rhonchi, wheezing ABDOMEN: Status post bowel surgery EXTREMITIES: No edema, clubbing or cyanosis. SKIN: Skin exam normal without any rashes MUSCULOSKELETAL: In bed NEUROLOGICAL : Sleepy although arousable Objective Labs 09/16/25 05:10 09/16/25 05:10 Labs: Laboratory Results - last 24 hr 09/14/25 09/15/25 19:08 05:02 WBC 8.2 RBC 2.83 L Hgb 7.6 L 7.8 L Hct 22.5 L 23.1 L MCV 82 MCH 27.6 MCHC 33.8 RDW Std Deviation 48.4 H Plt Count 167 Neut % (Auto) 84 H Lymph % (Auto) [address] [place] % (Auto) 5 Eos % (Auto) 3 Baso % (Auto) 0 Neut # (Auto) 6.8 Lymph # (Auto) 0.[address] [place] [place] # (Auto) 0.4 Eos # (Auto) 0.2 Baso # (Auto) 0.0 Immature Gran # (Auto) 0.06 H Absolute Nucleated RBC 0.00 Immature Gran % 1 H Nucleated RBC % 0 Sodium 147 H Potassium 3.3 L Chloride 113 H Carbon Dioxide 21.1 Anion Gap 13 BUN 67 H Creatinine 4.3 H* D Estim Creat Clear Calc 11.6 L eGFR 13 L* BUN/Creatinine Ratio 16 Glucose 94 Calculated Osmolality 311 H Calcium 7.2 L Corrected Calcium 8.2 L Phosphorus 3.6 Magnesium 2.3 Total Bilirubin 0.4 AST 36 H ALT 10 Alkaline Phosphatase 109 D Total Protein 5.0 L Albumin 2.7 L Globulin 2.3 Albumin/Globulin Ratio 1.2 Random Vancomycin 19.1 ABG Interpretation ABG results: 09/12/25 09/12/25 09/12/25 00:34 04:10 10:45 ABG pH 7.42 7.29 L D ABG pCO2 23 L 39 D ABG pO2 75 L 134 H D ABG HCO3 15 L 19 L ABG O2 Saturation 96 100 H ABG Base Excess -8 L -8 L VBG pH 7.27 L VBG pCO2 44 VBG pO2 61 H VBG Base Excess -7 L 09/12/25 09/13/25 12:37 04:44 ABG pH 7.35 7.34 L ABG pCO2 37 34 ABG pO2 164 H D 135 H D ABG HCO3 20 18 L ABG O2 Saturation 100 H 100 H ABG Base Excess -5 L -7 L VBG pH VBG pCO2 VBG pO2 VBG Base Excess Quality Measures Quality Measures VTE prophylaxis (SCDS) Advance care planning discussed with:: patient Assessment & Plan Assessment Current Active Medications: Generic Name Dose Route Start Last Admin Trade Name Freq PRN Reason Stop Dose Admin Acetaminophen 650 mg 09/11/25 15:37 Acetaminophen Supp 650 Mg Supp TX 10/11/25 15:36 Q6H PRN PAIN SCALE 1-3 (mild Atorvastatin Calcium 40 mg 09/11/25 21:00 09/14/25 20:40 Atorvastatin Calcium 20 Mg Tablet PO 10/11/25 20:59 40 mg HS SYBIL Administration Heparin Sodium (Porcine) 2,600 unit 09/12/25 09:45 09/12/25 10:12 Heparin Sod Inj 1000 Unit/Ml Vial 10 Ml INDWELLCAT 09/26/25 09:44 2,600 unit PRN PRN Administration DIALYSIS Hydromorphone HCl 0.5 mg 09/12/25 01:05 Hydromorphone Inj 2 Mg/Ml Vial IVP 09/17/25 01:04 Q4HR PRN 4-10 moderate-sev pain Piperacillin Sod/Tazobactam 100 mls @ 200 mls/hr 09/11/25 22:00 09/15/25 06:26 Sod 2.25 gm/ Sodium Chloride IV 09/18/25 21:59 200 mls/hr Q8HR SYBIL Administration Protocol Potassium Chloride/Sodium Chloride 20 meq in 1,000 mls @ 80 mls/hr 09/15/25 10:30 09/15/25 11:08 Kcl 20 Meq/L In 1/2ns IV 10/15/25 10:29 80 mls/hr .[id number] SYBIL Administration Ondansetron HCl 4 mg 09/11/25 12:11 Ondansetron Inj 2 Mg/Ml Inj 2 Ml IVP 10/11/25 12:10 Q4HR PRN NAUSEA OR VOMITING Pharmacy Consult 1 each 09/12/25 09:00 Vancomycin Pharmacy To Dose 1 Each Each IV 10/12/25 08:59 QDAY PRN CONSULT Pharmacy Consult 1 each 09/12/25 02:39 Pharmacy Renal Dose Adjustment 1 Ea XX 10/12/25 02:38 PRN PRN CONSULT Thiamine HCl 100 mg 09/12/25 09:00 09/15/25 08:06 Thiamine Inj 100 Mg/Ml Vial 2 Ml IVP 10/12/25 08:59 100 mg QDAY SYBIL Administration Plan Mr. Alcantar is a 85-year-old gentleman with BPH, bilateral hydronephrosis, hypertension, congestive heart failure with reduced ejection fraction presented to the hospital with altered mental status acute left-sided weakness and workup showed that he has sepsis and a left CVA. Renal consultation requested for LIBRADO. # Acute renal failure secondary to prerenal azotemia from underlying sepsis/hypotension # Metabolic acidosis from LIBRADO/sepsis. - resolved # Electrolyte imbalance agree with IV fluids. Bicarbonate IV. Patient could be going into ischemic ATN. Urine output 980 cc in past 24 hours. BUN and creatinine improved to 67 and 4.3 from 78 and 4.9 respectively. Started patient on 0.45% normal saline with KCl at 80 cc/h. Patient's urine output improved so no need for dialysis at this point. Plan: - Renally dose medications like anticoagulants and antibiotics - Avoid nephrotoxic agents - Daily CMP - Started on 0.45% normal saline IVF with KCl at 80 cc/h #Acute CVA of right occipital lobe, right thalamus, right posterior parietal lobe, and high right parietal lobe Echocardiogram ordered #Shock secondary to purulent peritonitis with GPC bacteremia. On broad-spectrum antibiotics. CT scan showed emphysematous gastritis/air in the bile ducts. Repeat CT was ordered by ICU team--did not show any gas.. 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 Care discussed with primary team Thank you for the opportunity to participate in the care of Mr. Alcantar Plan of care discussed with Attending Dr. Neptali Ordonez MD PGY 2 Disclaimer: This note was dictated by speech recognition. Minor errors in specialist managers may be present due to voice recognition software. Attending Provider Attestation/Addendum Patient currently seen and examined with resident physician Dr. Ordonez. Note reviewed, agree with findings and recommendations. Patient currently seen in telemetry. Seems to be very weak. Noted family planning on comfort care which seems to be reasonable. Creatinine tad better.
--- NOTE | 2025-09-15 12:42 | PD.SURPROG ---
Documentation for date of: 09/15/25 Subjective Subjective Narrative: Patient is seen and examined. He is confused and disoriented. According to the nurse he is tolerating liquids and had bowel movements Exam Vital Signs Temp Pulse Resp BP Pulse Ox O2 Del Method O2 Flow Rate 98.5 F 108 H 19 103/72 99 Room Air 2 09/15/25 12:00 09/15/25 12:00 09/15/25 12:00 09/15/25 12:00 09/15/25 12:00 09/15/25 12:00 09/13/25 20:00 FiO2 25 09/13/25 20:00 Constitutional Constitutional: no acute distress Routine Abdominal Exam Comments: Abdomen is soft and mildly distended. Incision is clean, dry and intact Assessment & Plan Assessment Additional comments: Postop day #3 status post exploratory laparotomy and abdominal washout Plan Continue care as directed, may advance diet as tolerated PROCEDURES: Procedures Exploratory laparotomy with abdominal washout
--- NOTE | 2025-09-15 12:51 | ESPR_ITS ---
<Statement entered by Trupti Estrada MD - 09/25/25 08:32> I reviewed above note and agree with findings and plans. I have also personally examined the patient with medicine team and went over assessment and plan with medical team including human resource intern and resident physician. <Statement entered by Anabell Crespo MD - 09/15/25 15:58> Patient is seen at bedside, urine culture is positive for GPC and GNR pending speciation and blood cultures are positive for GPC. Although patient has ischemic stroke, we are unable to start ancoagulation therapy due to pt's risk of bleeding in the setting of extensive abdominal surgery. Goals of care will be held today with patient's daughter to discuss patient's ongoing treatment, risks and benefits of any invasive interventions and patient's declined and poor prognosis due to multiple comorbidities and age. Patient was seen and examined by me personally. I have directly supervised and reviewed documentation by the team resident and agree with its findings. ------- Plan of care was discussed with the attending, Dr. Sean Crespo, PGY-2 Documentation for date of: 09/15/25 Subjective Subjective Interval history: * Patient seen and examined at bedside. * Continuing Zosyn. * Patient continues to produce urine, no dialysis. * Will arrange goals of care discussion. Exam Vital Signs Temp Pulse Resp BP Pulse Ox O2 Del Method O2 Flow Rate 98.5 F 108 H 19 103/72 99 Room Air 2 09/15/25 12:00 09/15/25 12:00 09/15/25 12:00 09/15/25 12:00 09/15/25 12:00 09/15/25 12:00 09/13/25 20:00 FiO2 25 09/13/25 20:00 Narrative Exam General: Frail elderly man, temporal wasting. Neurologic: GCS 11. Not following commands. Left-sided hemineglect in the upper and lower extremities. . Dysarthria. HEENT: Right gaze preference. Normocephalic, atraumatic, mucous membranes moist. Pupils reactive to light. Heart: Regular rate and rhythm, normal S1 and S2, no murmurs. Lungs: Clear to auscultation bilaterally with no wheezing or crackles. Abdomen: Midline surgical scar no evidence of infection. Unable to assess tenderness. Soft, nondistended. Extremities: No edema. 2+ radial and dorsalis pedis pulses bilaterally. Skin: Warm. Dry. No rash or ecchymoses. Objective Labs 09/15/25 05:02 09/15/25 05:02 Labs: Laboratory Results - last 24 hr 09/14/25 09/15/25 19:08 05:02 WBC 8.2 RBC 2.83 L Hgb 7.6 L 7.8 L Hct 22.5 L 23.1 L MCV 82 MCH 27.6 MCHC 33.8 RDW Std Deviation 48.4 H Plt Count 167 Neut % (Auto) 84 H Lymph % (Auto) 8 L [place] % (Auto) 5 Eos % (Auto) 3 Baso % (Auto) 0 Neut # (Auto) 6.8 Lymph # (Auto) 0.7 L [place] # (Auto) 0.4 Eos # (Auto) 0.2 Baso # (Auto) 0.0 Immature Gran # (Auto) 0.06 H Absolute Nucleated RBC 0.00 Immature Gran % 1 H Nucleated RBC % 0 Sodium 147 H Potassium 3.3 L Chloride 113 H Carbon Dioxide 21.1 Anion Gap 13 BUN 67 H Creatinine 4.3 H* D Estim Creat Clear Calc 11.6 L eGFR 13 L* BUN/Creatinine Ratio 16 Glucose 94 Calculated Osmolality 311 H Calcium 7.2 L Corrected Calcium 8.2 L Phosphorus 3.6 Magnesium 2.3 Total Bilirubin 0.4 AST 36 H ALT 10 Alkaline Phosphatase 109 D Total Protein 5.0 L Albumin 2.7 L Globulin 2.3 Albumin/Globulin Ratio 1.2 Random Vancomycin 19.1 ABG Interpretation ABG results: 09/12/25 09/12/25 09/12/25 00:34 04:10 10:45 ABG pH 7.42 7.29 L D ABG pCO2 23 L 39 D ABG pO2 75 L 134 H D ABG HCO3 15 L 19 L ABG O2 Saturation 96 100 H ABG Base Excess -8 L -8 L VBG pH 7.27 L VBG pCO2 44 VBG pO2 61 H VBG Base Excess -7 L 09/12/25 09/13/25 12:37 04:44 ABG pH 7.35 7.34 L ABG pCO2 37 34 ABG pO2 164 H D 135 H D ABG HCO3 20 18 L ABG O2 Saturation 100 H 100 H ABG Base Excess -5 L -7 L VBG pH VBG pCO2 VBG pO2 VBG Base Excess Quality Measures Quality Measures VTE prophylaxis (SCDS) Advance care planning discussed with:: patient Assessment & Plan Assessment Current Active Medications: Generic Name Dose Route Start Last Admin Trade Name Freq PRN Reason Stop Dose Admin Acetaminophen 650 mg 09/11/25 15:37 Acetaminophen Supp 650 Mg Supp NV 10/11/25 15:36 Q6H PRN PAIN SCALE 1-3 (mild Atorvastatin Calcium 40 mg 09/11/25 21:00 09/14/25 20:40 Atorvastatin Calcium 20 Mg Tablet PO 10/11/25 20:59 40 mg HS SYBIL Administration Heparin Sodium (Porcine) 2,600 unit 09/12/25 09:45 09/12/25 10:12 Heparin Sod Inj 1000 Unit/Ml Vial 10 Ml INDWELLCAT 09/26/25 09:44 2,600 unit PRN PRN Administration DIALYSIS Hydromorphone HCl 0.5 mg 09/12/25 01:05 Hydromorphone Inj 2 Mg/Ml Vial IVP 09/17/25 01:04 Q4HR PRN 4-10 moderate-sev pain Piperacillin Sod/Tazobactam 100 mls @ 200 mls/hr 09/11/25 22:00 09/15/25 06:26 Sod 2.25 gm/ Sodium Chloride IV 09/18/25 21:59 200 mls/hr Q8HR SYBIL Administration Protocol Potassium Chloride/Sodium Chloride 20 meq in 1,000 mls @ 80 mls/hr 09/15/25 10:30 09/15/25 11:08 Kcl 20 Meq/L In 1/2ns IV 10/15/25 10:29 80 mls/hr .[id number] SYBIL Administration Ondansetron HCl 4 mg 09/11/25 12:11 Ondansetron Inj 2 Mg/Ml Inj 2 Ml IVP 10/11/25 12:10 Q4HR PRN NAUSEA OR VOMITING Pharmacy Consult 1 each 09/12/25 09:00 Vancomycin Pharmacy To Dose 1 Each Each IV 10/12/25 08:59 QDAY PRN CONSULT Pharmacy Consult 1 each 09/12/25 02:39 Pharmacy Renal Dose Adjustment 1 Ea XX 10/12/25 02:38 PRN PRN CONSULT Thiamine HCl 100 mg 09/12/25 09:00 09/15/25 08:06 Thiamine Inj 100 Mg/Ml Vial 2 Ml IVP 10/12/25 08:59 100 mg QDAY SYBIL Administration Plan Summary: Patient is a 85-year-old bedbound male with past medical history of recurrent UTI with indwelling louise catheter secondary to BPH and B/L hydronephrosis, history of hypertension, and 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 Head CT was negative for acute stroke. CT abdomen was significant for evidence of ischemic bowel. Patient was taken to the OR for ex lap on 09/12/2025 and was found to have purulent peritonitis. He was upgraded to the ICU after surgery requiring pressors. He was extubated on 09/13/2025 and downgraded to the floors. #Acute CVA of right occipital lobe, right thalamus, right posterior parietal lobe, and high right parietal lobe * Presented with acute left sided weakness. * On exam, AO x0 (self only), AOx3 at baseline. Chronically bedbound. * No known history of prior strokes. * Head CT and head and neck CT showed no acute pathology. * MRI 09/12 showed multiple embolic type acute infarcts right occipital lobe, right thalamus, right posterior parietal lobe, high right parietal lobe. * Patient has had evidence of A-fib versus irregular rhythm on telemetry monitoring, EKG on 09/14/2025 showed sinus tachycardia with premature ventricular complexes * Low suspicion for septic emboli given the patient has no leukocytosis, is afebrile, and repeat blood cultures are negative after 24 hours. This may reinforce thrombotic emboli. Plan: * No antiplatelet therapy at this time given s/p surgery and increased risk of bleeding. * Neurology consulted, appreciate recommendations Reassessment: * Repeat blood cultures negative after 48 hours # Staph aureus bacteremia #GPC GNR UTI #Hx recurrent UTIs with chronic indwelling Louise * Blood culture collected 09/11 positive for Staph aureus * Repeat blood cultures on 09/13/2025 negative after 48 hours * Bacteremia may have stemmed from UTI versus purulent peritonitis Plan: * IV Zosyn, (09/11/2025?) * Vancomycin renally dosed (09/12/2025?) #Purulent peritonitis status post abdominal washout, 09/12 #Dilated stomach status post NG tube LIS #Emphysematous gastritis (improving) #Pneumatosis intestinalis (improving) * History of indwelling Louise catheter, ascites seen on CT * Rapid response called 12AM 09/12 for severe abdominal pain. Patient was barely able to talk due to pain. He was grimacing with pain when belly was palpated. Abdomen was soft diffusely tender nondistended scaphoid. Patient was unable to tell if he was passing gas. * CT abdomen/pelvis 09/11 showed portal venous air in the liver. Ascites. Emphysematous gastritis with air in portal venous system. Markedly abnormal small bowel loops, thickened small bowel loop vargas and air in the bowel consistent with ischemic bowel * Ex lap with washout 09/12 performed by general surgeon Dr. Chahal, found to have purulent peritonitis with dilated stomach. * Noted ABSENCE of ischemic bowel or small bowel perforation, perforated gastric or duodenal ulcer, perforated diverticulitis or a large bowel perforation. Anterior and posterior surface of stomach and duodenum inspected, no evidence of perforation noted. 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 Mild systolic dysfunction with mild global hypokinesis. Stage I diastolic dysfunction. Estimated LVEF 40-45%. Normal RV size and function. Mild AV sclerosis without stenosis. Trace TR. * S/p approx 5 L LR since admission * BNP 501 Plan: * Strict I&O's * Continue to monitor for fluid overload * Echo on 09/11/2025 was an insufficient study however there was an estimated EF of 30-35% * May repeat echo #Acute encephalopathy #Acute CVA * Consider acute CVA, metabolic from sepsis due to purulent peritonitis with azotemia, metabolic acidosis, and GPC bacteremia * On exam, AO x0 (self only), AOx3 at baseline. Chronically bedbound. * MRI 09/12 showed multiple embolic type acute infarcts right occipital lobe, right thalamus, right posterior parietal lobe, high right parietal lobe * Left-sided hemineglect on exam, right sided gaze preference Plan: * Continue Neuro checks * Physical therapy evaluation * Continue treatment of sepsis * Frequent re-orientation to avoid hospital aquired delirium. #Bilateral pleural effusions * CT abdomen pelvis showed bilateral pleural effusion with compression atalectesis. Plan: * S/p 5L IV fluids * Continue IV antibiotic Zosyn and vancomycin * Consider thoracentesis if patient is stable and continues to accumulate fluid #LIBRADO on CKD stage IV versus acute renal failure * Consider hypoperfusion in setting of shock, ATN * Has history of CKD stage IV. Seen by Dr. 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 * Renal US showed bilateral renal cortical thinning. Moderate bilateral renal scar formation * Creatinine improving * Patient has been producing urine Plan: * Per nephrology, will hold dialysis * Avoid nephrotoxic agents * Renal dose medications * Strict SERGIO's #Mixed acidosis (Improving) #Anion gap metabolic acidosis, (Resolved) #Non-anion gap metabolic acidosis (Improving) * In the setting of sepsis, lactic acidosis, acute kidney injury * ABGs showed pH 7.42, pCO2 23 with FiO2 21%. * Repeat ABG showed pH 7.29 pco2 39 * Anion gap 15 -> 18 on ICU downgrade, improved to 13 Plan: * Treating underlying bacteremia #Hypocalcemia #Hyperphosphatemia (Resolved) #Hyperchloremia * In the setting of acute renal failure Plan: * Dialysis per nephrology #Penile ulcer #Hx of indwelling urine catheter, chronic * Has history of bilateral hydronephrosis secondary to marked prostamegaly per chart review * Follows urologist Dr. Gloria, not ammendable to surgery due to failure to thrive * No hydronephrosis seen on renal ultrasound on 09/11 Plan: * Continue with indwelling Louise catheter * Wound care for ulcer #Normocytic anemia * Consider Decreased p.o. intake, DAJA in setting of failure to thrive * Hemoglobin stable Plan: * No active intervention at this time * Trend with daily labs #Failure to thrive #Low BMI #Starvation ketosis (resolved) * Decreased P.o. intake * Patient is bedbound and taken care of by [facility] [place]. * BMI 18.3. * BHB 0.7 -> 0.4. Plan: * Clear liquid diet, advance as directed by General Surgery * Speech evaluation ordered * Refer to registered dietitian for low BMI #Osseous metastatic disease per Bone scan in 05/21/24 * Per chart review in 2023, bone scan showed Increased isotope accumulation manubrium, right and left shoulders, increased uptake diffusely in the lumbar and thoracic spine as well as sacral segments and right ischium Plan: * No active intervention # Septic shock secondary to GPC bacteremia versus purulent peritonitis (Resolved) #NSTEMI Type 2 (resolved) #Status post extubation 09/13 #Lactic acidosis (resolved) Hospital Maintenance: DVT ppx: SCDs Diet: Clear liquid diet IV lines: Peripheral IVs Louise: In place Code status: Full code Dispo: Telemetry monitoring, downgraded from ICU, continuing vancomycin and Zosyn for bacteremia, 48-hour blood cultures negative. Will plan for goals of care discussion. Patient was seen and discussed with my attending physician Dr. Sean PIERRE and my senior resident Dr. Zak PIERRE PGY-2. Sridhar Martinez DO PGY-1.
--- NOTE | 2025-09-15 12:51 | PD.RESPRO ---
Documentation for date of: 09/15/25 Subjective Subjective Interval history: Patient seen and examined at bedside. Continuing Zosyn. Patient continues to produce urine, no dialysis. Will arrange goals of care discussion. Exam Vital Signs Temp Pulse Resp BP Pulse Ox O2 Del Method O2 Flow Rate 98.5 F 108 H 19 103/72 99 Room Air 2 09/15/25 12:00 09/15/25 12:00 09/15/25 12:00 09/15/25 12:00 09/15/25 12:00 09/15/25 12:00 09/13/25 20:00 FiO2 25 09/13/25 20:00 Narrative Exam General: Frail elderly man, temporal wasting. Neurologic: GCS 11. Not following commands. Left-sided hemineglect in the upper and lower extremities. . Dysarthria. HEENT: Right gaze preference. Normocephalic, atraumatic, mucous membranes moist. Pupils reactive to light. Heart: Regular rate and rhythm, normal S1 and S2, no murmurs. Lungs: Clear to auscultation bilaterally with no wheezing or crackles. Abdomen: Midline surgical scar no evidence of infection. Unable to assess tenderness. Soft, nondistended. Extremities: No edema. 2+ radial and dorsalis pedis pulses bilaterally. Skin: Warm. Dry. No rash or ecchymoses. Objective Labs 09/15/25 05:02 09/15/25 05:02 Labs: Laboratory Results - last 24 hr 09/14/25 09/15/25 19:08 05:02 WBC 8.2 RBC 2.83 L Hgb 7.6 L 7.8 L Hct 22.5 L 23.1 L MCV 82 MCH 27.6 MCHC 33.8 RDW Std Deviation 48.4 H Plt Count 167 Neut % (Auto) 84 H Lymph % (Auto) 8 L [place] % (Auto) 5 Eos % (Auto) 3 Baso % (Auto) 0 Neut # (Auto) 6.8 Lymph # (Auto) 0.7 L [place] # (Auto) 0.4 Eos # (Auto) 0.2 Baso # (Auto) 0.0 Immature Gran # (Auto) 0.06 H Absolute Nucleated RBC 0.00 Immature Gran % 1 H Nucleated RBC % 0 Sodium 147 H Potassium 3.3 L Chloride 113 H Carbon Dioxide 21.1 Anion Gap 13 BUN 67 H Creatinine 4.3 H* D Estim Creat Clear Calc 11.6 L eGFR 13 L* BUN/Creatinine Ratio 16 Glucose 94 Calculated Osmolality 311 H Calcium 7.2 L Corrected Calcium 8.2 L Phosphorus 3.6 Magnesium 2.3 Total Bilirubin 0.4 AST 36 H ALT 10 Alkaline Phosphatase 109 D Total Protein 5.0 L Albumin 2.7 L Globulin 2.3 Albumin/Globulin Ratio 1.2 Random Vancomycin 19.1 ABG Interpretation ABG results: 09/12/25 09/12/25 09/12/25 00:34 04:10 10:45 ABG pH 7.42 7.29 L D ABG pCO2 23 L 39 D ABG pO2 75 L 134 H D ABG HCO3 15 L 19 L ABG O2 Saturation 96 100 H ABG Base Excess -8 L -8 L VBG pH 7.27 L VBG pCO2 44 VBG pO2 61 H VBG Base Excess -7 L 09/12/25 09/13/25 12:37 04:44 ABG pH 7.35 7.34 L ABG pCO2 37 34 ABG pO2 164 H D 135 H D ABG HCO3 20 18 L ABG O2 Saturation 100 H 100 H ABG Base Excess -5 L -7 L VBG pH VBG pCO2 VBG pO2 VBG Base Excess Quality Measures Quality Measures VTE prophylaxis (SCDS) Advance care planning discussed with:: patient Assessment & Plan Assessment Current Active Medications: Generic Name Dose Route Start Last Admin Trade Name Freq PRN Reason Stop Dose Admin Acetaminophen 650 mg 09/11/25 15:37 Acetaminophen Supp 650 Mg Supp FL 10/11/25 15:36 Q6H PRN PAIN SCALE 1-3 (mild Atorvastatin Calcium 40 mg 09/11/25 21:00 09/14/25 20:40 Atorvastatin Calcium 20 Mg Tablet PO 10/11/25 20:59 40 mg HS SYBIL Administration Heparin Sodium (Porcine) 2,600 unit 09/12/25 09:45 09/12/25 10:12 Heparin Sod Inj 1000 Unit/Ml Vial 10 Ml INDWELLCAT 09/26/25 09:44 2,600 unit PRN PRN Administration DIALYSIS Hydromorphone HCl 0.5 mg 09/12/25 01:05 Hydromorphone Inj 2 Mg/Ml Vial IVP 09/17/25 01:04 Q4HR PRN 4-10 moderate-sev pain Piperacillin Sod/Tazobactam 100 mls @ 200 mls/hr 09/11/25 22:00 09/15/25 06:26 Sod 2.25 gm/ Sodium Chloride IV 09/18/25 21:59 200 mls/hr Q8HR SYBIL Administration Protocol Potassium Chloride/Sodium Chloride 20 meq in 1,000 mls @ 80 mls/hr 09/15/25 10:30 09/15/25 11:08 Kcl 20 Meq/L In 1/2ns IV 10/15/25 10:29 80 mls/hr .[id number] SYBIL Administration Ondansetron HCl 4 mg 09/11/25 12:11 Ondansetron Inj 2 Mg/Ml Inj 2 Ml IVP 10/11/25 12:10 Q4HR PRN NAUSEA OR VOMITING Pharmacy Consult 1 each 09/12/25 09:00 Vancomycin Pharmacy To Dose 1 Each Each IV 10/12/25 08:59 QDAY PRN CONSULT Pharmacy Consult 1 each 09/12/25 02:39 Pharmacy Renal Dose Adjustment 1 Ea XX 10/12/25 02:38 PRN PRN CONSULT Thiamine HCl 100 mg 09/12/25 09:00 09/15/25 08:06 Thiamine Inj 100 Mg/Ml Vial 2 Ml IVP 10/12/25 08:59 100 mg QDAY SYBIL Administration Plan Summary: Patient is a 85-year-old bedbound male with past medical history of recurrent UTI with indwelling louise catheter secondary to BPH and B/L hydronephrosis, history of hypertension, and 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 Head CT was negative for acute stroke. CT abdomen was significant for evidence of ischemic bowel. Patient was taken to the OR for ex lap on 09/12/2025 and was found to have purulent peritonitis. He was upgraded to the ICU after surgery requiring pressors. He was extubated on 09/13/2025 and downgraded to the floors. #Acute CVA of right occipital lobe, right thalamus, right posterior parietal lobe, and high right parietal lobe Presented with acute left sided weakness. On exam, AO x0 (self only), AOx3 at baseline. Chronically bedbound. No known history of prior strokes. Head CT and head and neck CT showed no acute pathology. MRI 09/12 showed multiple embolic type acute infarcts right occipital lobe, right thalamus, right posterior parietal lobe, high right parietal lobe. Patient has had evidence of A-fib versus irregular rhythm on telemetry monitoring, EKG on 09/14/2025 showed sinus tachycardia with premature ventricular complexes Low suspicion for septic emboli given the patient has no leukocytosis, is afebrile, and repeat blood cultures are negative after 24 hours. This may reinforce thrombotic emboli. Plan: No antiplatelet therapy at this time given s/p surgery and increased risk of bleeding. Neurology consulted, appreciate recommendations Reassessment: Repeat blood cultures negative after 48 hours # Staph aureus bacteremia #GPC GNR UTI #Hx recurrent UTIs with chronic indwelling Louise Blood culture collected 09/11 positive for Staph aureus Repeat blood cultures on 09/13/2025 negative after 48 hours Bacteremia may have stemmed from UTI versus purulent peritonitis Plan: IV Zosyn, (09/11/2025?) Vancomycin renally dosed (09/12/2025?) #Purulent peritonitis status post abdominal washout, 09/12 #Dilated stomach status post NG tube LIS #Emphysematous gastritis (improving) #Pneumatosis intestinalis (improving) History of indwelling Louise catheter, ascites seen on CT Rapid response called 12AM 09/12 for severe abdominal pain. Patient was barely able to talk due to pain. He was grimacing with pain when belly was palpated. Abdomen was soft diffusely tender nondistended scaphoid. Patient was unable to tell if he was passing gas. CT abdomen/pelvis 09/11 showed portal venous air in the liver. Ascites. Emphysematous gastritis with air in portal venous system. Markedly abnormal small bowel loops, thickened small bowel loop vargas and air in the bowel consistent with ischemic bowel Ex lap with washout 09/12 performed by general surgeon Dr. Chahal, found to have purulent peritonitis with dilated stomach. Noted ABSENCE of ischemic bowel or small bowel perforation, perforated gastric or duodenal ulcer, perforated diverticulitis or a large bowel perforation. Anterior and posterior surface of stomach and duodenum inspected, no evidence of perforation noted. EGD performed 09/12 showed many linear esophageal ulcers without active bleeding CT abdomen/pelvis with oral contrast 09/12 shows significant improvement in emphysematous gastritis, portal venous air in the liver, and pneumatosis intestinalis Plan: Zosyn (09/12- ) Vancomycin renally dosed (09/12/2025?), random vancomycin level appropriate per pharmacy GI consulted Reglan 10 mg every 8 hours #Hx of HFmrEF 40-45% Not on any GDMT Echo 06/27/24 showed Normal LV size. Mild systolic dysfunction with mild global hypokinesis. Stage I diastolic dysfunction. Estimated LVEF 40-45%. Normal RV size and function. Mild AV sclerosis without stenosis. Trace TR. S/p approx 5 L LR since admission BNP 501 Plan: Strict I&O's Continue to monitor for fluid overload Echo on 09/11/2025 was an insufficient study however there was an estimated EF of 30-35% May repeat echo #Acute encephalopathy #Acute CVA Consider acute CVA, metabolic from sepsis due to purulent peritonitis with azotemia, metabolic acidosis, and GPC bacteremia On exam, AO x0 (self only), AOx3 at baseline. Chronically bedbound. MRI 09/12 showed multiple embolic type acute infarcts right occipital lobe, right thalamus, right posterior parietal lobe, high right parietal lobe Left-sided hemineglect on exam, right sided gaze preference Plan: Continue Neuro checks Physical therapy evaluation Continue treatment of sepsis Frequent re-orientation to avoid hospital aquired delirium. #Bilateral pleural effusions CT abdomen pelvis showed bilateral pleural effusion with compression atalectesis. Plan: S/p 5L IV fluids Continue IV antibiotic Zosyn and vancomycin Consider thoracentesis if patient is stable and continues to accumulate fluid #LIBRADO on CKD stage IV versus acute renal failure Consider hypoperfusion in setting of shock, ATN Has history of CKD stage IV. Seen by Dr. Gunderson on admission last year but does not follow any intelligence operations outpatient. Renal US showed bilateral renal cortical thinning. Moderate bilateral renal scar formation Creatinine improving Patient has been producing urine Plan: Per nephrology, will hold dialysis Avoid nephrotoxic agents Renal dose medications Strict SERGIO's #Mixed acidosis (Improving) #Anion gap metabolic acidosis, (Resolved) #Non-anion gap metabolic acidosis (Improving) In the setting of sepsis, lactic acidosis, acute kidney injury ABGs showed pH 7.42, pCO2 23 with FiO2 21%. Repeat ABG showed pH 7.29 pco2 39 Anion gap 15 -> 18 on ICU downgrade, improved to 13 Plan: Treating underlying bacteremia #Hypocalcemia #Hyperphosphatemia (Resolved) #Hyperchloremia In the setting of acute renal failure Plan: Dialysis per nephrology #Penile ulcer #Hx of indwelling urine catheter, chronic Has history of bilateral hydronephrosis secondary to marked prostamegaly per chart review Follows urologist Dr. Gloria, not ammendable to surgery due to failure to thrive No hydronephrosis seen on renal ultrasound on 09/11 Plan: Continue with indwelling Louise catheter Wound care for ulcer #Normocytic anemia Consider Decreased p.o. intake, DAJA in setting of failure to thrive Hemoglobin stable Plan: No active intervention at this time Trend with daily labs #Failure to thrive #Low BMI #Starvation ketosis (resolved) Decreased P.o. intake Patient is bedbound and taken care of by [facility] nursing at home. BMI 18.3. BHB 0.7 -> 0.4. Plan: Clear liquid diet, advance as directed by General Surgery Speech evaluation ordered Refer to registered dietitian for low BMI #Osseous metastatic disease per Bone scan in 05/21/24 Per chart review in 2023, bone scan showed Increased isotope accumulation manubrium, right and left shoulders, increased uptake diffusely in the lumbar and thoracic spine as well as sacral segments and right ischium Plan: No active intervention # Septic shock secondary to GPC bacteremia versus purulent peritonitis (Resolved) #NSTEMI Type 2 (resolved) #Status post extubation 09/13 #Lactic acidosis (resolved) Hospital Maintenance: DVT ppx: SCDs Diet: Clear liquid diet IV lines: Peripheral IVs Louise: In place Code status: Full code Dispo: Telemetry monitoring, downgraded from ICU, continuing vancomycin and Zosyn for bacteremia, 48-hour blood cultures negative. Will plan for goals of care discussion. Patient was seen and discussed with my attending physician Dr. Sean PIERRE and my senior resident Dr. Zak PIERRE PGY-2. Sridhar Martinez DO PGY-1.
--- NOTE | 2025-09-15 13:20 | PD.IMPROG ---
Documentation for date of: 09/15/25 Subjective Subjective Interval history: Hemoglobin hematocrit 7.8 and 23.1 Exam Vital Signs Temp Pulse Resp BP Pulse Ox O2 Del Method O2 Flow Rate 98.5 F 108 H 19 103/72 99 Room Air 2 09/15/25 12:00 09/15/25 12:00 09/15/25 12:00 09/15/25 12:00 09/15/25 12:00 09/15/25 12:00 09/13/25 20:00 FiO2 25 09/13/25 20:00 Objective Labs 09/15/25 05:02 09/15/25 05:02 Labs: Laboratory Results - last 24 hr 09/14/25 09/15/25 19:08 05:02 WBC 8.2 RBC 2.83 L Hgb 7.6 L 7.8 L Hct 22.5 L 23.1 L MCV 82 MCH 27.6 MCHC 33.8 RDW Std Deviation 48.4 H Plt Count 167 Neut % (Auto) 84 H Lymph % (Auto) 8 L [place] % (Auto) 5 Eos % (Auto) 3 Baso % (Auto) 0 Neut # (Auto) 6.8 Lymph # (Auto) 0.7 L [place] # (Auto) 0.4 Eos # (Auto) 0.2 Baso # (Auto) 0.0 Immature Gran # (Auto) 0.06 H Absolute Nucleated RBC 0.00 Immature Gran % 1 H Nucleated RBC % 0 Sodium 147 H Potassium 3.3 L Chloride 113 H Carbon Dioxide 21.1 Anion Gap 13 BUN 67 H Creatinine 4.3 H* D Estim Creat Clear Calc 11.6 L eGFR 13 L* BUN/Creatinine Ratio 16 Glucose 94 Calculated Osmolality 311 H Calcium 7.2 L Corrected Calcium 8.2 L Phosphorus 3.6 Magnesium 2.3 Total Bilirubin 0.4 AST 36 H ALT 10 Alkaline Phosphatase 109 D Total Protein 5.0 L Albumin 2.7 L Globulin 2.3 Albumin/Globulin Ratio 1.2 Random Vancomycin 19.1 Impressions Impression: Distal esophageal ulcers Gastritis Status post exploratory lap and abdominal washout continue current management ABG Interpretation ABG results: 09/12/25 09/12/25 09/12/25 00:34 04:10 10:45 ABG pH 7.42 7.29 L D ABG pCO2 23 L 39 D ABG pO2 75 L 134 H D ABG HCO3 15 L 19 L ABG O2 Saturation 96 100 H ABG Base Excess -8 L -8 L VBG pH 7.27 L VBG pCO2 44 VBG pO2 61 H VBG Base Excess -7 L 09/12/25 09/13/25 12:37 04:44 ABG pH 7.35 7.34 L ABG pCO2 37 34 ABG pO2 164 H D 135 H D ABG HCO3 20 18 L ABG O2 Saturation 100 H 100 H ABG Base Excess -5 L -7 L VBG pH VBG pCO2 VBG pO2 VBG Base Excess Assessment & Plan Time Spent With Patient Time: Total time spent is greater than 50% in coordination of care (as documented) at patient's floor/unit and/or counseling patient:
--- NOTE | 2025-09-15 14:42 | PC.SS ---
SS was informed by Team C that pt will need a GOC with dtr. SS contacted pt VITO Heredia , and set GOC for 1600. Dr. Crespo made aware
--- NOTE | 2025-09-15 16:37 | EVENTNT_ITS ---
Documentation for date of: 09/15/25 Event Note Event Note: A goals of care discussion was initiated with the patient's family including his daughter and son-in-law. Also present was the social media specialist and nurse. We reviewed the patient's hospital course, ongoing management and potential risks and benefits of any aggressive treatments and/or interventions. All treatment options including full treatment, palliative, and hospice were discussed at length. The family was given time to ask questions and all of their questions were answered to satisfaction with understanding of the patient's poor prognosis. The family had made the decision to transition to hospice care with direct focus on comfort care and symptom control. The patient's family showed good understanding of what hospice care is and referral to hospice service was made. The patient's and patient's family's preference for care includes home with hospice and avoidance of resuscitation. The patient's CODE STATUS was switched from full code to DNR/DNI per the patient's surrogate decision maker and power of sales service promoter, the patient's daughter. Sridhar Martinez DO PGY-1.
[2025-09-15] MEDS: ATORVASTATIN CALCIUM 20 MG TABLET 40 MG PO (21:10)
--- NOTE | 2025-09-15 22:24 | ESPR_ITS ---
Documentation for date of: 09/15/25 Subjective Subjective Interval history: Patient was seen in telemetry today. No new symptoms reported. Continues to have left residual hemiplegia and hemineglect. Exam - Neurology Vital Signs Temp Pulse Resp BP Pulse Ox O2 Del Method O2 Flow Rate 97.9 F 114 H 19 120/67 100 Room Air 2 09/15/25 20:00 09/15/25 20:00 09/15/25 20:00 09/15/25 20:00 09/15/25 20:00 09/15/25 20:00 09/13/25 20:00 FiO2 25 09/13/25 20:00 Narrative Exam GENERAL APPEARANCE: Well-developed, elderly white male in no acute distress. HEENT: Normocephalic, atraumatic, extraocular movements intact. Pupils: Equal reacting to light and accommodation NECK: Supple, no JVD or bruits. CARDIOVASULAR: Heart: S1, S2 heard, regular without S3-S4 or murmur no rubs or gallops. LUNGS/CHEST: Clear to auscultation bilaterally. No rails, rhonchi, or wheezing. Normal inspection. ABDOMEN: Soft, nontender, with normal bowel sounds. No pulsatile masses. No rebound, rigidity, or guarding. Normal inspection and palpation. EXTREMITIES: Normal inspection and palpation. No edema, clubbing or cyanosis. SKIN: Warm and dry without rashes. Normal inspection. MUSCULOSKELETAL: No cervical, thoracic, lumbar or midline bony tenderness. Normal inspection. NEURO: Alert, awake and oriented x3. Cranial nerves: II through XII grossly intact. Speech and language: Normal with no dysarthria or dysphasia. Motor system: Tone and bulk: Normal: Strength: dense left hemiplegia with hemineglect noted. Deep tendon reflexes: 2+ bilaterally symmetrical. Plantar reflex: Downgoing bilaterally. Sensory system: Intact to all modalities of sensation on the right. Coordination: Intact to [id number] and [id number] test on the right. No ataxia, no dysmetria, or dysdiadochokinesia noted. No intention tremors noted. Gait: Cannot be tested secondary to significant weakness on the left. no signs of meningeal irritation noted. PSYCHIATRIC: Normal mood and affect. Objective Labs 09/15/25 05:02 09/15/25 05:02 Labs: Laboratory Results - last 24 hr 09/15/25 05:02 WBC 8.2 RBC 2.83 L Hgb 7.8 L Hct 23.1 L MCV 82 MCH 27.6 MCHC 33.8 RDW Std Deviation 48.4 H Plt Count 167 Neut % (Auto) 84 H Lymph % (Auto) 8 L [place] % (Auto) 5 Eos % (Auto) 3 Baso % (Auto) 0 Neut # (Auto) 6.8 Lymph # (Auto) 0.7 L [place] # (Auto) 0.4 Eos # (Auto) 0.2 Baso # (Auto) 0.0 Immature Gran # (Auto) 0.06 H Absolute Nucleated RBC 0.00 Immature Gran % 1 H Nucleated RBC % 0 Sodium 147 H Potassium 3.3 L Chloride 113 H Carbon Dioxide 21.1 Anion Gap 13 BUN 67 H Creatinine 4.3 H* D Estim Creat Clear Calc 11.6 L eGFR 13 L* BUN/Creatinine Ratio 16 Glucose 94 Calculated Osmolality 311 H Calcium 7.2 L Corrected Calcium 8.2 L Phosphorus 3.6 Magnesium 2.3 Total Bilirubin 0.4 AST 36 H ALT 10 Alkaline Phosphatase 109 D Total Protein 5.0 L Albumin 2.7 L Globulin 2.3 Albumin/Globulin Ratio 1.2 Random Vancomycin 19.1 ABG Interpretation ABG results: 09/12/25 09/12/25 09/12/25 00:34 04:10 10:45 ABG pH 7.42 7.29 L D ABG pCO2 23 L 39 D ABG pO2 75 L 134 H D ABG HCO3 15 L 19 L ABG O2 Saturation 96 100 H ABG Base Excess -8 L -8 L VBG pH 7.27 L VBG pCO2 44 VBG pO2 61 H VBG Base Excess -7 L 09/12/25 09/13/25 12:37 04:44 ABG pH 7.35 7.34 L ABG pCO2 37 34 ABG pO2 164 H D 135 H D ABG HCO3 20 18 L ABG O2 Saturation 100 H 100 H ABG Base Excess -5 L -7 L VBG pH VBG pCO2 VBG pO2 VBG Base Excess Assessment & Plan Assessment and plan (1) CVA (cerebral vascular accident): Status: Acute Assessment and plan: With dense left hemiplegia with multiple embolic type infarcts Continue with physical therapy, Occupational Therapy as he tolerates. Cannot be on any antiplatelet/anticoagulant.
[2025-09-16] VITALS (8 sets, daily range): BP systolic 110–135; BP diastolic 57–96; PULSE 91–118; RESP 12–97; TEMP 36.4–36.9; O2SAT 95–100; BMI 19.9
[2025-09-16] MEDS: KCL 20 mEq/L in 1/2NS 20 MEQ/1,000 ML BAG 80 MEQ IV (00:58)
[2025-09-16] MEDS: PIPERACILLIN/TAZO 2.25GM INJ 2.25 GM in SODIUM CHLORIDE 0.9% (POP) 100 ML IV ×3 (05:01→22:11)
[2025-09-16 05:45] LABS: Basophils # (Auto) 0.0 Thou/mm3 (0.0-0.2); Basophils % (Auto) 0 % (0-2.5); Eosinophils # (Auto) 0.3 Thou/mm3 (0.0-0.5); Eosinophils % (Auto) 3 % (0-10); Hematocrit 23.3 % (41.0-53.0); Immature Granulocytes Auto 0.06 Thou/mm3 (0.00-0.00); Lymphocytes # (Auto) 0.7 Thou/mm3 (1.0-4.8); Lymphocytes % (Auto) 7 % (10-50); Mean Corpuscular HGB Conc 33.5 g/dl (31.0-37.0); Mean Corpuscular Hemoglobin 27.6 pg (25.0-35.0); Mean Corpuscular Volume 82 fL (80-100); Monocytes # (Auto) 0.4 Thou/mm3 (0.0-0.8); Monocytes % (Auto) 4 % (0-12); Neutrophils # (Auto) 7.5 Thou/mm3 (1.8-7.7); Neutrophils % (Auto) 85 % (37-80); Nucleated Red Blood Cell # 0.00 Thou/mm3 (0.00-0.00); Nucleated Red Blood Cell % 0 /100 WBC (0); Platelet Count 162 Thou/mm3 (140-440); RDW Standard Deviation 48.3 fL (35.1-43.9); Red Blood Count 2.83 Miln/mm3 (4.50-5.90); White Blood Count 8.8 Thou/mm3 (3.8-10.6)
[2025-09-16 05:46] LABS: Hemoglobin 7.8 g/dL (13.5-16.0)
[2025-09-16 06:08] LABS: Alanine Aminotransferase 11 U/L (10-49); Albumin, Serum 2.6 gm/dL (3.4-4.8); Albumin/Globulin Ratio 1.0 (1.2-2.2); Alkaline Phosphatase 68 U/L (46-116); Anion Gap 16 (7-16); Aspartate Amino Transferase 33 U/L (0-34); BUN/Creatinine Ratio 15 Ratio (12-20); Bilirubin,Total 0.4 mg/dL (0.3-1.2); Blood Urea Nitrogen 57 mg/dL (9-23); Calcium 7.3 mg/dL (8.3-10.6); Calcium (Corrected) 8.4 mg/dL (8.5-10.1); Carbon Dioxide 17.3 mMol/L (20.0-31.0); Chloride 115 mMol/L (98-107); Creatinine (Component) 3.7 mg/dL (0.6-1.3); Estimated Creatinine Clearance 12.4 mL/min (>60); Globulin 2.5 gm/dL (2.3-3.5); Glucose 77 mg/dL (74-106); Magnesium 2.0 mg/dL (1.6-2.6); Osmolality,Calculated 309 (275-295); Phosphorous 3.2 mg/dL (2.4-5.1); Potassium 3.0 mMol/L (3.4-5.1); Sodium 148 mMol/L (136-145); Total Protein 5.1 gm/dL (5.7-8.2); Vancomycin,Random 16.0 mcg/mL; eGFR 15 See Note
[2025-09-16] MEDS: POTASSIUM CHLORIDE 10% 20 MEQ/15 ML UDC 40 MEQ PO (08:45)
[2025-09-16] MEDS: THIAMINE INJ 100 MG/ML VIAL 2 ML IVP (08:45)
--- NOTE | 2025-09-16 10:39 | PD.RESPRO ---
Documentation for date of: 09/16/25 Subjective Subjective Interval history: Mr. Whiting is a 85-year-old gentleman with past medical history significant for enlarged prostate, gait imbalance and is wheelchair-bound, hypotension on midodrine presented to the emergency department with altered mental status left-sided flaccid paralysis. Stroke alert was called and teleneurology was consulted. Patient also noted to have coffee-ground emesis and diagnosis of GI bleed was entertained. During hospital course patient developed ischemic colitis and transferred to ICU. Abdomen pelvic CT showed findings consistent with pneumatosis intestinalis along with emphysematous gastritis and air in the portal system. surgical consultation was requested. patient was taken to the OR and had exploratory laparotomy, abdominal washout for peritonitis. Patient came back to ICU intubated on pressors. IV antibiotics initiated. IV fluids were given. MRI of the brain which showed multiple right-sided embolic CVAs which appeared acute . Urine output started to trend down and BUN and creatinine elevated and nephrology consultation was requested. Patient currently seen in ICU. Team at bedside. In the emergency department blood pressure 128/75, heart rate 130. CBC normal, coags normal, bicarbonate 15.6, anion gap 19, BUN 68, creatinine 5.7, lactic acid 3.1, troponin 0.9, B12 702, Pro-Tyson 57.5, TSH 4.71, urinalysis shows UTI. Urine drug screen negative. Chest x-ray negative for pneumonia. Head CT negative. CTA showed arterial stenosis. EKG showed sinus tach. Patient admitted with sepsis. 09/13/2025 patient currently seen in ICU. Remains on ventilator. However he is more alert and awake. Spoke to ICU team- continue with supportive therapy. Possible extubation and transfer to telemetry today. BUN and creatinine still remains elevated. Urine output still remains low. However his bicarbonate and potassium and electrolyte seems to be acceptable. Hold dialysis and if there is any recovery tonight. If not we will plan for dialysis tomorrow 09/14/2025 patient currently seen in telemetry. Got out of ICU. Extubated. Seems to be slightly confused. BUN and creatinine still remains elevated although urine output tad better. Status post bowel surgery for fecal peritonitis, abdominal wash. Continue with gentle IV fluids. Clinically seems to be rather dehydrated. Spoke to primary team. Hold dialysis today 09/15/2025: Patient seen and examined in telemetry today. Patient only oriented to self today, complained of feeling cold. Urine output 980 cc in past 24 hours. BUN and creatinine improved to 67 and 4.3 from 78 and 4.9 respectively. Started patient on 0.45% normal saline with KCl at 80 cc/h. Patient's urine output improved so no need for dialysis at this point. 09/16/2025: Patient seen and examined in telemetry today. Patient oriented x 0 and noted to be guarding his abdomen. Urine output 900 cc in past 24 hours. Patient was made DNR with hospice care by primary team. Agree with this decision. Exam Vital Signs Temp Pulse Resp BP Pulse Ox O2 Del Method O2 Flow Rate 98.4 F 103 H 19 131/71 H 97 Room Air 2 09/16/25 08:00 09/16/25 08:14 09/16/25 08:14 09/16/25 08:00 09/16/25 08:00 09/16/25 08:00 09/13/25 20:00 FiO2 25 09/13/25 20:00 Narrative Exam GENERAL APPEARANCE: Patient currently seen in telemetry. CARDIOVASCULAR: Heart regular, no murmurs LUNGS/CHEST: Chest clear to auscultation. No rales, rhonchi, wheezing ABDOMEN: Status post bowel surgery EXTREMITIES: No edema, clubbing or cyanosis. SKIN: Skin exam normal without any rashes MUSCULOSKELETAL: In bed NEUROLOGICAL : Sleepy although arousable Objective Labs 09/16/25 05:10 09/16/25 05:10 Labs: Laboratory Results - last 24 hr 09/16/25 05:10 WBC 8.8 RBC 2.83 L Hgb 7.8 L Hct 23.3 L MCV 82 MCH 27.6 MCHC 33.5 RDW Std Deviation 48.3 H Plt Count 162 Neut % (Auto) 85 H Lymph % (Auto) 7 L [place] % (Auto) 4 Eos % (Auto) 3 Baso % (Auto) 0 Neut # (Auto) 7.5 Lymph # (Auto) 0.7 L [place] # (Auto) 0.4 Eos # (Auto) 0.3 Baso # (Auto) 0.0 Immature Gran # (Auto) 0.06 H Absolute Nucleated RBC 0.00 Immature Gran % 1 H Nucleated RBC % 0 Sodium 148 H Potassium 3.0 L Chloride 115 H Carbon Dioxide 17.3 L Anion Gap 16 BUN 57 H Creatinine 3.7 H D Estim Creat Clear Calc 12.4 L eGFR 15 L BUN/Creatinine Ratio 15 Glucose 77 Calculated Osmolality 309 H Calcium 7.3 L Corrected Calcium 8.4 L Phosphorus 3.2 Magnesium 2.0 Total Bilirubin 0.4 AST 33 ALT 11 Alkaline Phosphatase 68 D Total Protein 5.1 L Albumin 2.6 L Globulin 2.5 Albumin/Globulin Ratio 1.0 L Random Vancomycin 16.0 ABG Interpretation ABG results: 09/12/25 09/12/25 09/12/25 00:34 04:10 10:45 ABG pH 7.42 7.29 L D ABG pCO2 23 L 39 D ABG pO2 75 L 134 H D ABG HCO3 15 L 19 L ABG O2 Saturation 96 100 H ABG Base Excess -8 L -8 L VBG pH 7.27 L VBG pCO2 44 VBG pO2 61 H VBG Base Excess -7 L 09/12/25 09/13/25 12:37 04:44 ABG pH 7.35 7.34 L ABG pCO2 37 34 ABG pO2 164 H D 135 H D ABG HCO3 20 18 L ABG O2 Saturation 100 H 100 H ABG Base Excess -5 L -7 L VBG pH VBG pCO2 VBG pO2 VBG Base Excess Quality Measures Quality Measures VTE prophylaxis (SCDS) Advance care planning discussed with:: other Assessment & Plan Assessment Current Active Medications: Generic Name Dose Route Start Last Admin Trade Name Freq PRN Reason Stop Dose Admin Acetaminophen 650 mg 09/11/25 15:37 Acetaminophen Supp 650 Mg Supp [place] 10/11/25 15:36 Q6H PRN PAIN SCALE 1-3 (mild Atorvastatin Calcium 40 mg 09/11/25 21:00 09/15/25 21:10 Atorvastatin Calcium 20 Mg Tablet PO 10/11/25 20:59 40 mg HS SYBIL Administration Heparin Sodium (Porcine) 2,600 unit 09/12/25 09:45 09/12/25 10:12 Heparin Sod Inj 1000 Unit/Ml Vial 10 Ml INDWELLCAT 09/26/25 09:44 2,600 unit PRN PRN Administration DIALYSIS Hydromorphone HCl 0.5 mg 09/12/25 01:05 Hydromorphone Inj 2 Mg/Ml Vial IVP 09/17/25 01:04 Q4HR PRN 4-10 moderate-sev pain Piperacillin Sod/Tazobactam 100 mls @ 200 mls/hr 09/11/25 22:00 09/16/25 05:01 Sod 2.25 gm/ Sodium Chloride IV 09/18/25 21:59 200 mls/hr Q8HR SYBIL Administration Protocol Potassium Chloride/Sodium Chloride 20 meq in 1,000 mls @ 80 mls/hr 09/15/25 10:30 09/16/25 00:58 Kcl 20 Meq/L In 1/2ns IV 10/15/25 10:29 80 mls/hr On Hold: 09/16/25 07:58 .[id number] SYBIL Administration Vancomycin/Sodium Chloride 100 mls @ 120 mls/hr 09/16/25 10:00 Vancomycin/Ns 500 Mg Ivpb IV 09/16/25 10:49 X1 ONE Ondansetron HCl 4 mg 09/11/25 12:11 Ondansetron Inj 2 Mg/Ml Inj 2 Ml IVP 10/11/25 12:10 Q4HR PRN NAUSEA OR VOMITING Pharmacy Consult 1 each 09/12/25 09:00 Vancomycin Pharmacy To Dose 1 Each Each IV 10/12/25 08:59 QDAY PRN CONSULT Pharmacy Consult 1 each 09/12/25 02:39 Pharmacy Renal Dose Adjustment 1 Ea XX 10/12/25 02:38 PRN PRN CONSULT Thiamine HCl 100 mg 09/12/25 09:00 09/16/25 08:45 Thiamine Inj 100 Mg/Ml Vial 2 Ml IVP 10/12/25 08:59 100 mg QDAY SYBIL Administration Plan Mr. Alcantar is a 85-year-old gentleman with BPH, bilateral hydronephrosis, hypertension, congestive heart failure with reduced ejection fraction presented to the hospital with altered mental status acute left-sided weakness and workup showed that he has sepsis and a left CVA. Renal consultation requested for LIBRADO. # Acute renal failure secondary to prerenal azotemia from underlying sepsis/hypotension # Metabolic acidosis from LIBRADO/sepsis. - resolved # Electrolyte imbalance agree with IV fluids. Bicarbonate IV. Patient could be going into ischemic ATN. Urine output 980 cc in past 24 hours. BUN and creatinine improved to 67 and 4.3 from 78 and 4.9 respectively. Started patient on 0.45% normal saline with KCl at 80 cc/h. Patient's urine output improved so no need for dialysis at this point. Plan: - Renally dose medications like anticoagulants and antibiotics - Avoid nephrotoxic agents - Patient placed on hospice care. Agree with this decision. #Acute CVA of right occipital lobe, right thalamus, right posterior parietal lobe, and high right parietal lobe Echocardiogram ordered #Shock secondary to purulent peritonitis with GPC bacteremia. On broad-spectrum antibiotics. CT scan showed emphysematous gastritis/air in the bile ducts. Repeat CT was ordered by ICU team--did not show any gas.. 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 Care discussed with primary team Thank you for the opportunity to participate in the care of Mr. Alcantar Plan of care discussed with Attending Dr. Neptali Ordonez MD PGY 2 Disclaimer: This note was dictated by speech recognition. Minor errors in veterans' coordinator may be present due to voice recognition software. Attending Provider Attestation/Addendum Patient currently seen and examined with resident physician Dr. Ordonez. Note reviewed, agree with findings and recommendations. Patient currently seen in telemetry. Seems to be very weak. Noted family planning on comfort care which seems to be reasonable. No new labs. Will DC dialysis catheter.
[2025-09-16] MEDS: VANCOMYCIN/NS 500 MG IVPB 100 ML 120 MG IV (11:00)
--- NOTE | 2025-09-16 11:32 | ESDS_ITS ---
<Statement entered by Trupti Estrada MD - 09/25/25 08:39> I reviewed above note and agree with findings and plans. I have also personally examined the patient with medicine team and went over assessment and plan with medical team including international logistics manager and resident physician. Planned Discharge Date 09/16/25 DS: Providers Provider Date of admission: 09/11/25 15:33 Primary care physician: Physician No Primary/Family Admitting Provider: Armen Aceves DO Attending Provider on Admission: Wen Saldivar MD Consults: 09/11/25 12:11 Consult to Neurology / Tele-Neurology Routine Comment: Consulting Provider: [facility] 09/11/25 14:39 Consult to Gastroenterology Stat Comment: Consulting Provider: Dillon Blanton 09/11/25 17:10 Referral Speech Therapy Routine Comment: 09/12/25 00:06 Consult to General Surgery Routine Comment: Consulting Provider: Danita Chahal 09/12/25 02:38 Referral Registered Dietitian Routine Comment: Failure to thrive 09/12/25 04:01 Consult to Nephrology Routine Comment: LIBRADO, Dec Urine Out Consulting Provider: Suzie Gunderson 09/12/25 15:33 Referral Registered Dietitian Routine Comment: coccyx pressure injury Referral Wound Care Routine Comment: Coccyx pressure injury 09/13/25 11:31 PT [Referral Physical Therapy] Routine Comment: CVA Physician Instructions: Instructions: No longer intubated 09/13/25 14:57 Consult to Neurology / Tele-Neurology Routine Comment: Embolic stroke, concern for endocarditis Consulting Provider: Clemente Arita 09/15/25 17:06 Referral Hospice Routine Comment: Attending Provider on DC: Sridhar Martinez DO Discharging Provider: Sridhar Martinez DO DS: Diagnosis Discharge Diagnosis (1) Sepsis: Status: Acute (2) GI bleed: Status: Acute (3) Urinary tract infection: Status: Acute (4) Acute renal failure (ARF): Status: Acute Problem List Completed Was Problem List Reviewed/Reconciled?: Yes Hospital Course Hospital Course Hospital course: Hospital Course: Patient is a 85-year-old male with past medical history of BPH who was BIBA from home due to altered mental status and notable left-sided flaccid paralysis, last known well time around 12 am per the family member who called EMS. Patient has a chronic indwelling Mayo catheter. Stroke alert was immediately called in ED and Teleneuro evaluated the patient, obtaining a NIHSS score of 20. CT head was negative for acute findings, CTA head/neck was negative for cerebral large vessel occlusions or thrombus. Nursing staff mentioned that the patient had an episode of what appeared to be coffee-ground emesis which was concerning for GI bleed and patient was found to have a positive fecal occult test. The patient was admitted for GI bleed. CT abdomen was concerning for ischemic bowel. The patient was taken to the OR where he underwent exploratory laparotomy and was found to have purulent peritonitis and underwent washout and was started on antibiotics. After surgery he was kept intubated and moved to the ICU due to distributive shock requiring pressor support. MRI of the brain showed multiple embolic type acute infarcts in the right occipital lobe, right thalamus, right posterior parietal lobe, high right parietal lobe. The patient was extubated and downgraded to floors on 09/13/2025 after his shock and lactic acidosis resolved. The patient had left-sided hemineglect and right gaze preference on exam. Neurology was consulted and recommended against anticoagulation due to the patient's recent major abdominal surgery. The patient's creatinine increased and nephrology was consulted. Dialysis was held due to the patient's improvement in creatinine and ability to produce urine. Patient was found to have staph auricularis on blood culture and Staph aureus and Alcaligenes faecalis on urine culture. Repeat blood cultures were negative and the patient was continued on antibiotics. 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% #Acute encephalopathy #Acute CVA #Bilateral pleural effusions #LIBRADO on CKD stage IV versus acute renal failure #Mixed acidosis (Improving) #Anion gap metabolic acidosis, (Resolved) #Non-anion gap metabolic acidosis (Improving) #Hypocalcemia #Hyperphosphatemia (Resolved) #Hyperchloremia #Penile ulcer #Hx of indwelling urine catheter, chronic #Normocytic anemia #Failure to thrive #Low BMI #Starvation ketosis (resolved) #Osseous metastatic disease per Bone scan in 05/21/24 # Septic shock secondary to GPC bacteremia versus purulent peritonitis (Resolved) #NSTEMI Type 2 (resolved) #Status post extubation 09/13 #Lactic acidosis (resolved) Discharge Instructions: * You have been prescribed antibiotics for additional 4 days which is renally dosed. Please complete the course * You are being discharged on hospice care * Follow-up with PCP within 1-2 weeks of discharge * If you do not have a PCP, then you can follow-up at the [facility] * Return to the emergency room if symptoms worsen The patient was seen and discussed with my attending physician Dr. Sean PIERRE and my senior resident Dr. Zak PIERRE PGY-2. Sridhar Martinez DO PGY-1 Time Spent with Patient Time attestation: Total time spent providing and/or coordinating discharge services: More than 50% Time spent: Greater than 30 minutes Exam Vital Signs Temp Pulse Resp BP Pulse Ox O2 Del Method O2 Flow Rate 98.4 F 103 H 19 131/71 H 97 Room Air 2 09/16/25 08:00 09/16/25 08:14 09/16/25 08:14 09/16/25 08:00 09/16/25 08:00 09/16/25 08:00 09/13/25 20:00 FiO2 25 09/13/25 20:00 Narrative Exam General: Frail elderly man, temporal wasting. Neurologic: GCS 11. Not following commands. Left-sided hemineglect in the upper and lower extremities. . Dysarthria. HEENT: Right gaze preference. Normocephalic, atraumatic, mucous membranes moist. Pupils reactive to light. Heart: Regular rate and rhythm, normal S1 and S2, no murmurs. Lungs: Clear to auscultation bilaterally with no wheezing or crackles. Abdomen: Midline surgical scar no evidence of infection. Unable to assess tenderness. Soft, nondistended. Extremities: No edema. 2+ radial and dorsalis pedis pulses bilaterally. Skin: Warm. Dry. No rash or ecchymoses. Discharge Plan Plan Patient Disposition: Home w/HOSPICE Patient condition on transfer: Stable Care Plan Goals: -You have been prescribed antibiotics for additional 4 days which is renally dosed. Please complete the course Instructions: * You are being discharged on hospice care * Follow-up with PCP within 1-2 weeks of discharge * If you do not have a PCP, then you can follow-up at the [facility] * Return to the emergency room if symptoms worsen Prescriptions/Referrals Prescriptions/Med Rec: New ciprofloxacin HCl 500 mg tablet 500 mg PO QDAY 4 Days Qty: 4 0RF No Action midodrine 10 mg tablet 10 mg PO BID Rx Instructions: do not give last dose of day after 6PM or within 4 hrs of bedtime Referrals: No Primary/Family,Physician [Primary Care Provider] Patient/Caregiver Discharge Instructions Education Materials: What Is Hospice? Print Language: Serbian Stand Alone Forms: Jenny Award Info., Patient Portal Info Letter Discharge Order Discharge Orders: Discharge (Routine); Ordered 09/16/25 Ordered By: Sridhar Martinez Quality Discharge Quality Measures comfort care/end of life
--- NOTE | 2025-09-16 15:05 | ESPR_ITS ---
Documentation for date of: 09/16/25 Subjective Subjective Interval history: Hemoglobin hematocrit 7.3 and 23.3 No further GI bleed Exam Vital Signs Temp Pulse Resp BP Pulse Ox O2 Del Method O2 Flow Rate 98.2 F 91 16 124/62 98 Room Air 2 09/16/25 12:00 09/16/25 12:00 09/16/25 12:00 09/16/25 12:00 09/16/25 12:00 09/16/25 12:00 09/13/25 20:00 FiO2 25 09/13/25 20:00 Objective Labs 09/16/25 05:10 09/16/25 05:10 Labs: Laboratory Results - last 24 hr 09/16/25 05:10 WBC 8.8 RBC 2.83 L Hgb 7.8 L Hct 23.3 L MCV 82 MCH 27.6 MCHC 33.5 RDW Std Deviation 48.3 H Plt Count 162 Neut % (Auto) 85 H Lymph % (Auto) 7 L [place] % (Auto) 4 Eos % (Auto) 3 Baso % (Auto) 0 Neut # (Auto) 7.5 Lymph # (Auto) 0.7 L [place] # (Auto) 0.4 Eos # (Auto) 0.3 Baso # (Auto) 0.0 Immature Gran # (Auto) 0.06 H Absolute Nucleated RBC 0.00 Immature Gran % 1 H Nucleated RBC % 0 Sodium 148 H Potassium 3.0 L Chloride 115 H Carbon Dioxide 17.3 L Anion Gap 16 BUN 57 H Creatinine 3.7 H D Estim Creat Clear Calc 12.4 L eGFR 15 L BUN/Creatinine Ratio 15 Glucose 77 Calculated Osmolality 309 H Calcium 7.3 L Corrected Calcium 8.4 L Phosphorus 3.2 Magnesium 2.0 Total Bilirubin 0.4 AST 33 ALT 11 Alkaline Phosphatase 68 D Total Protein 5.1 L Albumin 2.6 L Globulin 2.5 Albumin/Globulin Ratio 1.0 L Random Vancomycin 16.0 Impressions Impression: Distal esophageal ulcers Gastritis Continue current management ABG Interpretation ABG results: 09/12/25 09/12/25 09/12/25 00:34 04:10 10:45 ABG pH 7.42 7.29 L D ABG pCO2 23 L 39 D ABG pO2 75 L 134 H D ABG HCO3 15 L 19 L ABG O2 Saturation 96 100 H ABG Base Excess -8 L -8 L VBG pH 7.27 L VBG pCO2 44 VBG pO2 61 H VBG Base Excess -7 L 09/12/25 09/13/25 12:37 04:44 ABG pH 7.35 7.34 L ABG pCO2 37 34 ABG pO2 164 H D 135 H D ABG HCO3 20 18 L ABG O2 Saturation 100 H 100 H ABG Base Excess -5 L -7 L VBG pH VBG pCO2 VBG pO2 VBG Base Excess Assessment & Plan Time Spent With Patient Time: Total time spent is greater than 50% in coordination of care (as documented) at patient's floor/unit and/or counseling patient:
--- NOTE | 2025-09-16 16:46 | PC.SS ---
Discharge round: D/c home tomorrow, 09/17/25, with [facility]. SS to f/u with daughter for time to set up transportation. [facility] stated they are available to f/u tomorrow at any time. POLST on physical chart pending daughter's signature, SS to f/u.
--- NOTE | 2025-09-16 17:43 | PC.NURSE ---
was here this morming and removed dressing from abd.incision well approxomated with flakito,
[2025-09-16] MEDS: ATORVASTATIN CALCIUM 20 MG TABLET 40 MG PO (20:05)
--- NOTE | 2025-09-16 23:52 | PD.VPROG1 ---
Telemedicine visit statement This visit was conducted with the use of interactive audio and video telecommunications system that permits real time communication between the patient and the provider. Patient's verbal consent for virtual visit was obtained on 09/16/25 at 2352. Documentation for date of: 09/16/25 Virtual exam Vital Signs Temp Pulse Resp BP Pulse Ox O2 Del Method O2 Flow Rate 98.2 F 99 20 133/96 H 96 Room Air 2 09/16/25 20:00 09/16/25 21:08 09/16/25 21:08 09/16/25 20:00 09/16/25 20:00 09/16/25 20:00 09/13/25 20:00 FiO2 25 09/13/25 20:00 Objective Labs 09/16/25 05:10 09/16/25 05:10 Labs: Laboratory Results - last 24 hr 09/16/25 05:10 WBC 8.8 RBC 2.83 L Hgb 7.8 L Hct 23.3 L MCV 82 MCH 27.6 MCHC 33.5 RDW Std Deviation 48.3 H Plt Count 162 Neut % (Auto) 85 H Lymph % (Auto) 7 L [place] % (Auto) 4 Eos % (Auto) 3 Baso % (Auto) 0 Neut # (Auto) 7.5 Lymph # (Auto) 0.7 L [place] # (Auto) 0.4 Eos # (Auto) 0.3 Baso # (Auto) 0.0 Immature Gran # (Auto) 0.06 H Absolute Nucleated RBC 0.00 Immature Gran % 1 H Nucleated RBC % 0 Sodium 148 H Potassium 3.0 L Chloride 115 H Carbon Dioxide 17.3 L Anion Gap 16 BUN 57 H Creatinine 3.7 H D Estim Creat Clear Calc 12.4 L eGFR 15 L BUN/Creatinine Ratio 15 Glucose 77 Calculated Osmolality 309 H Calcium 7.3 L Corrected Calcium 8.4 L Phosphorus 3.2 Magnesium 2.0 Total Bilirubin 0.4 AST 33 ALT 11 Alkaline Phosphatase 68 D Total Protein 5.1 L Albumin 2.6 L Globulin 2.5 Albumin/Globulin Ratio 1.0 L Random Vancomycin 16.0 ABG Interpretation ABG results: 09/12/25 09/12/25 09/12/25 00:34 04:10 10:45 ABG pH 7.42 7.29 L D ABG pCO2 23 L 39 D ABG pO2 75 L 134 H D ABG HCO3 15 L 19 L ABG O2 Saturation 96 100 H ABG Base Excess -8 L -8 L VBG pH 7.27 L VBG pCO2 44 VBG pO2 61 H VBG Base Excess -7 L 09/12/25 09/13/25 12:37 04:44 ABG pH 7.35 7.34 L ABG pCO2 37 34 ABG pO2 164 H D 135 H D ABG HCO3 20 18 L ABG O2 Saturation 100 H 100 H ABG Base Excess -5 L -7 L VBG pH VBG pCO2 VBG pO2 VBG Base Excess
[2025-09-17] VITALS: BP 125/83; PULSE 113; PULSE 117; RESP 19; TEMP 36.6; O2SAT 95
[2025-09-17 04:00] VITALS: BP 121/90; PULSE 108; PULSE 112; RESP 26; TEMP 36.3; O2SAT 96
[2025-09-17] MEDS: PIPERACILLIN/TAZO 2.25GM INJ 2.25 GM in SODIUM CHLORIDE 0.9% (POP) 100 ML IV (05:15)
[2025-09-17 05:55] VITALS: BMI 19.9
[2025-09-17 06:06] LABS: Vancomycin,Trough 21.0 mcg/mL (5.0-10.0)
--- NOTE | 2025-09-17 07:57 | ESDS_ITS ---
<Statement entered by Trupti Estrada MD - 09/25/25 08:39> I reviewed above note and agree with findings and plans. I have also personally examined the patient with medicine team and went over assessment and plan with medical team including international trade specialist and resident physician. Planned Discharge Date 09/17/25 DS: Providers Provider Date of admission: 09/11/25 15:33 Primary care physician: Physician No Primary/Family Admitting Provider: Armen Aceves DO Attending Provider on Admission: Wen Saldivar MD Consults: 09/11/25 12:11 Consult to Neurology / Tele-Neurology Routine Comment: Consulting Provider: [facility] 09/11/25 14:39 Consult to Gastroenterology Stat Comment: Consulting Provider: Dillon Blanton 09/11/25 17:10 Referral Speech Therapy Routine Comment: 09/12/25 00:06 Consult to General Surgery Routine Comment: Consulting Provider: Danita Chahal 09/12/25 02:38 Referral Registered Dietitian Routine Comment: Failure to thrive 09/12/25 04:01 Consult to Nephrology Routine Comment: LIBRADO, Dec Urine Out Consulting Provider: Suzie Gunderson 09/12/25 15:33 Referral Registered Dietitian Routine Comment: coccyx pressure injury Referral Wound Care Routine Comment: Coccyx pressure injury 09/13/25 11:31 PT [Referral Physical Therapy] Routine Comment: CVA Physician Instructions: Instructions: No longer intubated 09/13/25 14:57 Consult to Neurology / Tele-Neurology Routine Comment: Embolic stroke, concern for endocarditis Consulting Provider: Clemente Arita 09/15/25 17:06 Referral Hospice Routine Comment: Attending Provider on DC: Sridhar Martinez DO Discharging Provider: Sridhar Martinez DO DS: Diagnosis Discharge Diagnosis (1) Sepsis: Status: Acute (2) GI bleed: Status: Acute (3) Urinary tract infection: Status: Acute (4) Acute renal failure (ARF): Status: Acute Problem List Completed Was Problem List Reviewed/Reconciled?: Yes Hospital Course Hospital Course Hospital course: Hospital Course: The patient was cleared to discharge on 09/16/2025. This discharge summary is a forwarded copy from 09/16/2025. Patient is a 85-year-old male with past medical history of BPH who was BIBA from home due to altered mental status and notable left-sided flaccid paralysis, last known well time around 12 am per the family member who called EMS. Patient has a chronic indwelling Mayo catheter. Stroke alert was immediately called in ED and Teleneuro evaluated the patient, obtaining a NIHSS score of 20. CT head was negative for acute findings, CTA head/neck was negative for cerebral large vessel occlusions or thrombus. Nursing staff mentioned that the patient had an episode of what appeared to be coffee-ground emesis which was concerning for GI bleed and patient was found to have a positive fecal occult test. The patient was admitted for GI bleed. CT abdomen was concerning for ischemic bowel. The patient was taken to the OR where he underwent exploratory laparoto my and was found to have purulent peritonitis and underwent washout and was started on antibiotics. After surgery he was kept intubated and moved to the ICU due to distributive shock requiring pressor support. MRI of the brain showed multiple embolic type acute infarcts in the right occipital lobe, right thalamus, right posterior parietal lobe, high right parietal lobe. The patient was extubated and downgraded to floors on 09/13/2025 after his shock and lactic acidosis resolved. The patient had left-sided hemineglect and right gaze preference on exam. Neurology was consulted and recommended against anticoagulation due to the patient's recent major abdominal surgery. The patient's creatinine increased and nephrology was consulted. Dialysis was held due to the patient's improvement in creatinine and ability to produce urine. Patient was found to have staph auricularis on blood culture and Staph aureus and Alcaligenes faecalis on urine culture. Repeat blood cultures were negative and the patient was continued on antibiotics. 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% #Acute encephalopathy #Acute CVA #Bilateral pleural effusions #LIBRADO on CKD stage IV versus acute renal failure #Mixed acidosis (Improving) #Anion gap metabolic acidosis, (Resolved) #Non-anion gap metabolic acidosis (Improving) #Hypocalcemia #Hyperphosphatemia (Resolved) #Hyperchloremia #Penile ulcer #Hx of indwelling urine catheter, chronic #Normocytic anemia #Failure to thrive #Low BMI #Starvation ketosis (resolved) #Osseous metastatic disease per Bone scan in 05/21/24 # Septic shock secondary to GPC bacteremia versus purulent peritonitis (Resolved) #NSTEMI Type 2 (resolved) #Status post extubation 09/13 #Lactic acidosis (resolved) Instructions: * You have been prescribed antibiotics for additional 4 days which is renally dosed. Please complete the course * You are being discharged on hospice care * Follow-up with PCP within 1-2 weeks of discharge * If you do not have a PCP, then you can follow-up at the [facility] * Return to the emergency room if symptoms worsen * Deep tissue injury over coccyx: cleanse with wound cleanser, pat dry, apply skin prep and cover with allyven dressing daily and PRN for falling off or soiling side to side repositioning, negative heel pressure bilaterally, no briefs.remove flakito from mid abdomen in 2 weeks per order. The patient was seen and discussed with my attending physician Dr. Sean PIERRE and my senior resident Dr. Zak PIERRE PGY-2. Sridhar Martinez DO PGY-1 Time Spent with Patient Time attestation: Total time spent providing and/or coordinating discharge services: More than 50% Time spent: Greater than 30 minutes Exam Vital Signs Temp Pulse Resp BP Pulse Ox O2 Del Method O2 Flow Rate 97.3 F 108 H 26 H 121/90 H 96 Room Air 2 09/17/25 04:00 09/17/25 04:00 09/17/25 04:00 09/17/25 04:00 09/17/25 04:00 09/17/25 04:00 09/13/25 20:00 FiO2 25 09/13/25 20:00 Narrative Exam General: Frail elderly man, temporal wasting. Neurologic: GCS 11. Not following commands. Left-sided hemineglect in the upper and lower extremities. . Dysarthria. HEENT: Right gaze preference. Normocephalic, atraumatic, mucous membranes moist. Pupils reactive to light. Heart: Regular rate and rhythm, normal S1 and S2, no murmurs. Lungs: Clear to auscultation bilaterally with no wheezing or crackles. Abdomen: Midline surgical scar no evidence of infection. Unable to assess tenderness. Soft, nondistended. Extremities: No edema. 2+ radial and dorsalis pedis pulses bilaterally. Skin: Warm. Dry. No rash or ecchymoses. Discharge Plan Plan Patient Disposition: Home w/HOSPICE Patient condition on transfer: Stable Care Plan Goals: -You have been prescribed antibiotics for additional 4 days which is renally dosed. Please complete the course Instructions: * You are being discharged on hospice care * Follow-up with PCP within 1-2 weeks of discharge * If you do not have a PCP, then you can follow-up at the [facility] * Return to the emergency room if symptoms worsen * Deep tissue injury over coccyx: cleanse with wound cleanser, pat dry, apply skin prep and cover with allyven dressing daily and PRN for falling off or soiling side to side repositioning, negative heel pressure bilaterally, no briefs.remove flakito from mid abdomen in 2 weeks per order. Prescriptions/Referrals Prescriptions/Med Rec: New ciprofloxacin HCl 500 mg tablet 500 mg PO QDAY 4 Days Qty: 4 0RF No Action midodrine 10 mg tablet 10 mg PO BID Rx Instructions: do not give last dose of day after 6PM or within 4 hrs of bedtime Referrals: No Primary/Family,Physician [Primary Care Provider] Patient/Caregiver Discharge Instructions Education Materials: What Is Hospice?, Discharge Instructions for Stroke Print Language: Omani Stand Alone Forms: Jenny Award Info., Patient Portal Info Letter Discharge Order Discharge Orders: Discharge (Routine); Ordered 09/17/25 Ordered By: Sridhar Martinez Quality Discharge Quality Measures comfort care/end of life
[2025-09-17 08:00] VITALS: BP 131/99; PULSE 108; RESP 17; TEMP 36.7; O2SAT 100
[2025-09-17] MEDS: THIAMINE INJ 100 MG/ML VIAL 2 ML IVP (08:33)
--- NOTE | 2025-09-17 08:39 | PD.RESPRO ---
Documentation for date of: 09/17/25 Subjective Subjective Interval history: Mr. Whiting is a 85-year-old gentleman with past medical history significant for enlarged prostate, gait imbalance and is wheelchair-bound, hypotension on midodrine presented to the emergency department with altered mental status left-sided flaccid paralysis. Stroke alert was called and teleneurology was consulted. Patient also noted to have coffee-ground emesis and diagnosis of GI bleed was entertained. During hospital course patient developed ischemic colitis and transferred to ICU. Abdomen pelvic CT showed findings consistent with pneumatosis intestinalis along with emphysematous gastritis and air in the portal system. surgical consultation was requested. patient was taken to the OR and had exploratory laparotomy, abdominal washout for peritonitis. Patient came back to ICU intubated on pressors. IV antibiotics initiated. IV fluids were given. MRI of the brain which showed multiple right-sided embolic CVAs which appeared acute . Urine output started to trend down and BUN and creatinine elevated and nephrology consultation was requested. Patient currently seen in ICU. Team at bedside. In the emergency department blood pressure 128/75, heart rate 130. CBC normal, coags normal, bicarbonate 15.6, anion gap 19, BUN 68, creatinine 5.7, lactic acid 3.1, troponin 0.9, B12 702, Pro-Tyson 57.5, TSH 4.71, urinalysis shows UTI. Urine drug screen negative. Chest x-ray negative for pneumonia. Head CT negative. CTA showed arterial stenosis. EKG showed sinus tach. Patient admitted with sepsis. 09/13/2025 patient currently seen in ICU. Remains on ventilator. However he is more alert and awake. Spoke to ICU team- continue with supportive therapy. Possible extubation and transfer to telemetry today. BUN and creatinine still remains elevated. Urine output still remains low. However his bicarbonate and potassium and electrolyte seems to be acceptable. Hold dialysis and if there is any recovery tonight. If not we will plan for dialysis tomorrow 09/14/2025 patient currently seen in telemetry. Got out of ICU. Extubated. Seems to be slightly confused. BUN and creatinine still remains elevated although urine output tad better. Status post bowel surgery for fecal peritonitis, abdominal wash. Continue with gentle IV fluids. Clinically seems to be rather dehydrated. Spoke to primary team. Hold dialysis today 09/15/2025: Patient seen and examined in telemetry today. Patient only oriented to self today, complained of feeling cold. Urine output 980 cc in past 24 hours. BUN and creatinine improved to 67 and 4.3 from 78 and 4.9 respectively. Started patient on 0.45% normal saline with KCl at 80 cc/h. Patient's urine output improved so no need for dialysis at this point. 09/16/2025: Patient seen and examined in telemetry today. Patient oriented x 0 and noted to be guarding his abdomen. Urine output 900 cc in past 24 hours. Patient was made DNR with hospice care by primary team. Agree with this decision. 09/17/2025: Patient seen and examined at bedside. Alert but not oriented. Urine output 1.2L 24h. Nephrology will sign off as primary team plans for home on hospice. Exam Vital Signs Temp Pulse Resp BP Pulse Ox O2 Del Method O2 Flow Rate 97.3 F 108 H 26 H 121/90 H 96 Room Air 2 09/17/25 04:00 09/17/25 04:00 09/17/25 04:00 09/17/25 04:00 09/17/25 04:00 09/17/25 04:00 09/13/25 20:00 FiO2 25 09/13/25 20:00 Narrative Exam GENERAL APPEARANCE: Patient currently seen in telemetry. Alert and oriented x0 CARDIOVASCULAR: Heart regular, no murmurs LUNGS/CHEST: Chest clear to auscultation. No rales, rhonchi, wheezing ABDOMEN: Status post bowel surgery, abdominal incision clean and intact EXTREMITIES: No edema, clubbing or cyanosis. SKIN: Skin exam normal without any rashes MUSCULOSKELETAL: In bed NEUROLOGICAL : alert, oriented x0 Objective Labs 09/16/25 05:10 09/16/25 05:10 Labs: Laboratory Results - last 24 hr 09/17/25 04:54 Vancomycin Trough 21.0 H* ABG Interpretation ABG results: 09/12/25 09/12/25 09/12/25 00:34 04:10 10:45 ABG pH 7.42 7.29 L D ABG pCO2 23 L 39 D ABG pO2 75 L 134 H D ABG HCO3 15 L 19 L ABG O2 Saturation 96 100 H ABG Base Excess -8 L -8 L VBG pH 7.27 L VBG pCO2 44 VBG pO2 61 H VBG Base Excess -7 L 09/12/25 09/13/25 12:37 04:44 ABG pH 7.35 7.34 L ABG pCO2 37 34 ABG pO2 164 H D 135 H D ABG HCO3 20 18 L ABG O2 Saturation 100 H 100 H ABG Base Excess -5 L -7 L VBG pH VBG pCO2 VBG pO2 VBG Base Excess Quality Measures Quality Measures comfort care/end of life Advance care planning discussed with:: patient Assessment & Plan Assessment Current Active Medications: Generic Name Dose Route Start Last Admin Trade Name Freq PRN Reason Stop Dose Admin Acetaminophen 650 mg 09/11/25 15:37 Acetaminophen Supp 650 Mg Supp OH 10/11/25 15:36 Q6H PRN PAIN SCALE 1-3 (mild Atorvastatin Calcium 40 mg 09/11/25 21:00 09/16/25 20:05 Atorvastatin Calcium 20 Mg Tablet PO 10/11/25 20:59 40 mg HS SYBIL Administration Heparin Sodium (Porcine) 2,600 unit 09/12/25 09:45 09/12/25 10:12 Heparin Sod Inj 1000 Unit/Ml Vial 10 Ml INDWELLCAT 09/26/25 09:44 2,600 unit PRN PRN Administration DIALYSIS Piperacillin Sod/Tazobactam 100 mls @ 200 mls/hr 09/11/25 22:00 09/17/25 05:15 Sod 2.25 gm/ Sodium Chloride IV 09/18/25 21:59 200 mls/hr Q8HR SYBIL Administration Protocol Potassium Chloride/Sodium Chloride 20 meq in 1,000 mls @ 80 mls/hr 09/15/25 10:30 09/16/25 00:58 Kcl 20 Meq/L In 1/2ns IV 10/15/25 10:29 80 mls/hr On Hold: 09/16/25 07:58 .[id number] SYBIL Administration Ondansetron HCl 4 mg 09/11/25 12:11 Ondansetron Inj 2 Mg/Ml Inj 2 Ml IVP 10/11/25 12:10 Q4HR PRN NAUSEA OR VOMITING Pharmacy Consult 1 each 09/12/25 09:00 Vancomycin Pharmacy To Dose 1 Each Each IV 10/12/25 08:59 QDAY PRN CONSULT Pharmacy Consult 1 each 09/12/25 02:39 Pharmacy Renal Dose Adjustment 1 Ea XX 10/12/25 02:38 PRN PRN CONSULT Thiamine HCl 100 mg 09/12/25 09:00 09/17/25 08:33 Thiamine Inj 100 Mg/Ml Vial 2 Ml IVP 10/12/25 08:59 100 mg QDAY SYBIL Administration Plan Mr. Alcantar is a 85-year-old gentleman with BPH, bilateral hydronephrosis, hypertension, congestive heart failure with reduced ejection fraction presented to the hospital with altered mental status acute left-sided weakness and workup showed that he has sepsis and a left CVA. Renal consultation requested for LIBRADO. # Acute renal failure secondary to prerenal azotemia from underlying sepsis/hypotension # Metabolic acidosis from LIBRADO/sepsis. - resolved # Electrolyte imbalance Agree with IV fluids. Bicarbonate IV. Patient could be going into ischemic ATN. Urine output 1200 cc in past 24 hours. BUN and creatinine improved to 67 and 4.3 from 78 and 4.9 respectively last time labs were taken. Patient's urine output improved so no need for dialysis at this point. Plan: - Renally dose medications like anticoagulants and antibiotics - Avoid nephrotoxic agents - Patient to be discharged for home hospice. Agree with this decision. - Nephrology will sign off #Acute CVA of right occipital lobe, right thalamus, right posterior parietal lobe, and high right parietal lobe Echocardiogram ordered #Shock secondary to purulent peritonitis with GPC bacteremia. On broad-spectrum antibiotics. CT scan showed emphysematous gastritis/air in the bile ducts. Repeat CT was ordered by ICU team--did not show any gas.. 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 Care discussed with primary team Thank you for the opportunity to participate in the care of Mr. Alcantar Plan of care discussed with Attending Dr. Neptali Hood, DO Internal Medicine PGY-1 Attending Provider Attestation/Addendum Patient currently seen and examined with resident physician Dr. Hood. Note reviewed, agree with findings and recommendations. Patient currently seen in telemetry. Seems to be very weak. Noted family planning on comfort care which seems to be reasonable. No new labs. Will DC dialysis catheter. Patient will be going to hospice.
[2025-09-17 09:54] VITALS: PULSE 119; RESP 20; RESP 99
--- NOTE | 2025-09-17 10:13 | PC.SS ---
Follow up note: SS spoke to Yessi at [facility] and patient's daughter, Zuleima, regarding discharging home with hospice. Daughter agreeable with plan. ETA garbage pick up worker at 1p.m. Floor nurse aware. Orders are in.
[2025-09-17 12:00] VITALS: BP 125/83; PULSE 109; PULSE 112; RESP 18; TEMP 37; O2SAT 100
--- NOTE | 2025-09-17 18:17 | PD.IMPROG ---
Documentation for date of: 09/17/25 Subjective Subjective Interval history: Late entry for the note Case discussed with the internal medicine team patient evaluated Hemoglobin hematocrit 7.8 and 23.3 Exam Vital Signs Temp Pulse Resp BP Pulse Ox O2 Del Method O2 Flow Rate 98.6 F 112 H 18 125/83 100 Room Air 2 09/17/25 12:00 09/17/25 12:00 09/17/25 12:00 09/17/25 12:00 09/17/25 12:00 09/17/25 12:00 09/13/25 20:00 FiO2 25 09/13/25 20:00 Objective Labs 09/16/25 05:10 09/16/25 05:10 Labs: Laboratory Results - last 24 hr 09/17/25 04:54 Vancomycin Trough 21.0 H* Impressions Impression: Distal esophageal ulcers Gastritis Relatively stable hemoglobin hematocrit Okay to discharge on a PPI ABG Interpretation ABG results: 09/12/25 09/12/25 09/12/25 00:34 04:10 10:45 ABG pH 7.42 7.29 L D ABG pCO2 23 L 39 D ABG pO2 75 L 134 H D ABG HCO3 15 L 19 L ABG O2 Saturation 96 100 H ABG Base Excess -8 L -8 L VBG pH 7.27 L VBG pCO2 44 VBG pO2 61 H VBG Base Excess -7 L 09/12/25 09/13/25 12:37 04:44 ABG pH 7.35 7.34 L ABG pCO2 37 34 ABG pO2 164 H D 135 H D ABG HCO3 20 18 L ABG O2 Saturation 100 H 100 H ABG Base Excess -5 L -7 L VBG pH VBG pCO2 VBG pO2 VBG Base Excess Assessment & Plan Time Spent With Patient Time: Total time spent is greater than 50% in coordination of care (as documented) at patient's floor/unit and/or counseling patient:
== END 2025-09-17 13:12 | disposition hospice, home (50) | DRG 853 ==
LOC: SERX 14:39 → SERHOLD 15:58 → S2NX 17:37 → S2SX 09-12 06:14 → S2NX 09-13 17:34
PROVIDERS: Registered Nurse General Practice; Specialist; Student in an Organized Health Care Education/Training Program; Surgery; Admitting Provider Student in an Organized Health Care Education/Training Program; Emergency Provider Emergency Medicine; Visit Provider Internal Medicine
PROC: (CPT 49000; principal; 2025-09-12 02:00)
DX: A41.9 Sepsis, unspecified organism (principal); I21.A1 Myocardial infarction type 2; K65.0 Generalized (acute) peritonitis; R65.21 Severe sepsis with septic shock; J18.9 Pneumonia, unspecified organism; R57.8 Other shock; N39.0 Urinary tract infection, site not specified; E87.20 Acidosis, unspecified; N17.9 Acute kidney failure, unspecified; N18.4 Chronic kidney disease, stage 4 (severe); G81.04 Flaccid hemiplegia affecting left nondominant side; K92.0 Hematemesis; C79.51 Secondary malignant neoplasm of bone; Z68.1 Body mass index [BMI] 19.9 or less, adult; G93.40 Encephalopathy, unspecified; K55.9 Vascular disorder of intestine, unspecified; E87.4 Mixed disorder of acid-base balance; I50.22 Chronic systolic (congestive) heart failure; I13.0 Hypertensive heart and chronic kidney disease with heart failure and stage 1 through stage 4 chronic kidney disease, or unspecified chronic kidney disease; R18.8 Other ascites; N40.0 Benign prostatic hyperplasia without lower urinary tract symptoms; Z99.3 Dependence on wheelchair; K31.89 Other diseases of stomach and duodenum; Z74.01 Bed confinement status; R62.7 Adult failure to thrive; D64.9 Anemia, unspecified; D50.0 Iron deficiency anemia secondary to blood loss (chronic); E83.39 Other disorders of phosphorus metabolism; E83.51 Hypocalcemia; E87.5 Hyperkalemia; E87.8 Other disorders of electrolyte and fluid balance, not elsewhere classified; Z51.5 Encounter for palliative care; Z66 Do not resuscitate; Z79.82 Long term (current) use of aspirin; N48.5 Ulcer of penis; Z85.46 Personal history of malignant neoplasm of prostate; Z87.440 Personal history of urinary (tract) infections; Z87.891 Personal history of nicotine dependence
CPT/HCPCS: 36415; 36600; 51702; 70450; 70496; 70498; 70551; 71045; 74176; 76770; 80053; 80061; 80069; 80202; 80307; 80329; 81001; 82010; 82306; 82436; 82607; 82803; 83605; 83735; 83880; 83970; 84100; 84133; 84145; 84156; 84300; 84443; 84484; 84540; 84703; 85014; 85018; 85025; 85610; 85730; 86850; 86900; 86901; 87040; 87077; 87081; 87086; 87186; 87635; 92507; 92523; 92526; 92610; 93005; 93306; 94002; 94003; 96361; 96365; 96366; 96374; 96375; 97162; 99291; 99292; A4314; A4649; J0168; J0613; J0694; J1171; J1643; J2250; J2371; J2405; J2470; J2543; J2598; J2704; J2765; J3010; J3373; J3411; J3475; J3480; J3490; J7030; J7050; J7060; J7120; Q9967; A9270; G0480